=== PATIENT | female | born 1930 | race Caucasian/White ===

== ENCOUNTER 2016-11-11 11:44 | Observation (INO) | payer MEDICARE ==
[~2016-11-11] VITALS: Ht 165.1 cm; Wt 58.0 kg
[~2016-11-11 11:44] MED LIST: ASPI325T PO; DIGO0.12 PO; DILT120C9 PO; FURO20 PO; LEVO.1 PO; PRIL20CA PO; SUCR1S PO; TYLE3 PO; XANA0.5T PO
[2016-11-11 11:51] VITALS: BP 111/63; PULSE 79; RESP 24; TEMP 98.1; O2SAT 98
[2016-11-11 11:58] VITALS: RESP 24; O2SAT 97
[2016-11-11] MEDS ORDERED: SODIUM CHLORIDE 0.9% FLUSH 10 ML FLUSH IVF PRN (12:00)
[2016-11-11] MEDS ORDERED: methylPREDNISolone SOD SUCC 125 MG/2 ML VIAL IVP ONE (12:00)
[2016-11-11 12:09] LABS: BASOPHIL % 0.2 % (0.0-2.0); EOSINOPHIL # 0.1 TH/MM3 (0-0.4); EOSINOPHIL % 0.8 % (0.0-4.0); HEMATOCRIT 34.9 % (35.0-46.0); HEMO FLAGS DIFF FINAL; LYMPH % 15.6 % (9.0-44.0); LYMPHOCYTE # 1.2 TH/MM3 (1.0-4.8); MEAN CELL VOLUME 75.4 FL (80.0-100.0); MEAN CORPUSCULAR HEMOGLOBIN 25.1 PG (27.0-34.0); MEAN CORPUSCULAR HGB CONC 33.3 % (32.0-36.0); MONO % 3.9 % (0.0-8.0); NEUT % 79.5 % (16.0-70.0); PLATELET COUNT 212 TH/MM3 (150-450); RED BLOOD COUNT 4.63 MIL/MM3 (4.00-5.30); RED CELL DISTRIBUTION WIDTH 16.4 % (11.6-17.2); WHITE BLOOD COUNT 7.6 TH/MM3 (4.0-11.0)
--- NOTE | 2016-11-11 12:14 | PD ---
HPI Chief Complaint: Respiratory Symptoms Time Seen by Provider: 12:10 Travel History International Travel<30 days: No Contact w/Intl Traveler<30days: No Traveled to known affect area: No History of Present Illness HPI Patient comes in by EMS complaining of shortness of breath began shortly prior to arrival. Patient denies any pain with this. Denies patient being on any inhalers regularly but does report a history of COPD. Patient's daughter reports she is uncertain if this was COPD or her mother's anxiety. Patient's daughter reports that she applied oxygen the patient will no relief and called EMS. Denies any nausea, vomiting, chest pain, headache, numbness or tingling, back pain, fevers, or loss or change of bowel or bladder. Patient reports symptoms improved after receiving nebulizer treatments from EMS en route. She denies any symptoms currently. PFSH Past Medical History Arthritis: Yes (RHEUMATOID) Asthma: No Atrial Fibrillation: Yes Autoimmune Disease: Yes Blood Disorders: No Anxiety: Yes Depression: Yes Heart Rhythm Problems: Yes (ATRIAL FIB) Cancer: No Cardiovascular Problems: Yes High Cholesterol: No Chemotherapy: No Chest Pain: Yes Congestive Heart Failure: Yes COPD: No Cerebrovascular Accident: No Diabetes: No Diminished Hearing: No Endocrine: Yes Gastrointestinal Disorders: Yes GERD: Yes Glaucoma: Yes (BILATERAL) Genitourinary: No Headaches: No Hepatitis: No Hiatal Hernia: No Hypertension: Yes Immune Disorder: Yes Implanted Vascular Access Dvce: Yes Kidney Stones: No Musculoskeletal: Yes (RHEUMATOID ARTHRITIS) Neurologic: No Psychiatric: No Reproductive: No Respiratory: Yes (COPD) Immunizations Current: Yes Migraines: No Myocardial Infarction: No Radiation Therapy: No Renal Failure: No Seizures: No Sickle Cell Disease: No Sleep Apnea: No Thyroid Disease: Yes Ulcer: No PNEUMOCCOCAL Vaccine (Year): 1 ?: Not Menopausal: Yes Past Surgical History Abdominal Surgery: No AICD: Yes Appendectomy: Yes Arteriovenous Shunt: No Body Medical Devices: pacer Cardiac Surgery: Yes (PACEMAKER, ) Cholecystectomy: Yes Ear Surgery: No Endocrine Surgery: No Eye Surgery: Yes (UNK) Genitourinary Surgery: No Gynecologic Surgery: Yes (HYSTERECTOMY) Hysterectomy: Yes Insulin Pump: No Joint Replacement: Yes (SEVERAL) Neurologic Surgery: Yes Oral Surgery: Yes (REMOVAL OF TEETH) Pacemaker: Yes (2009) Thoracic Surgery: No Other Surgery: Yes (toe surgery bilat feet) Social History Alcohol Use: Yes (WINE/OCC) Tobacco Use: No Substance Use: No Allergies-Medications (Allergen,Severity, Reaction): Coded Allergies: Keflex (Verified Allergy, Severe, HIVES, 11/11/16) Nonsteroidal Anti-Inflammatory Agts (Verified Allergy, Severe, Itching, 11/11/16) Uncoded Allergies: ANTIINFLAMATORY (Allergy, Severe, ITCHING, 09/16/14) Reported Meds & Prescriptions Reported Meds & Active Scripts Active Reported Aspir-81 (Aspirin) 81 Mg Tabdr 81 Mg PO DAILY Prilosec (Omeprazole) 20 Mg Cap 20 Mg PO DAILY K-Tab (Potassium Chloride) 10 Meq Tab 10 Meq PO DAILY Furosemide 20 Mg Tab 20 Mg PO DAILY Tylenol-Codeine #3 (Acetaminophen-Codeine) 300-30 mg Tab 1 Tab PO Q4H PRN Cartia Xt (Diltiazem ER 24 HR) 120 Mg Caper 120 Mg PO DAILY Prednisone 5 Mg Tab 5 Mg PO DAILY Levothyroxine (Levothyroxine Sodium) 100 Mcg Tab 100 Mcg PO DAILY Digoxin 0.125 Mg Tab 0.125 Mg PO DAILY Alprazolam 0.5 Mg Tab 0.25 Mg PO TID PRN Review of Systems Except as stated in HPI: all other systems reviewed are Neg Physical Exam Narrative GENERAL: Well-developed, well nourished, in no acute distress, and non-ill appearing. SKIN: Focused skin assessment warm and dry. HEAD: Atraumatic. Normocephalic. EYES: Pupils equal and round. EOMI. No scleral icterus. No injection or drainage. ENT: No nasal bleeding or discharge. Mucous membranes pink and moist. NECK: Trachea midline. No JVD. Supple. No nuclear rigidity. CARDIOVASCULAR: Regular rate and rhythm. No murmur appreciated. RESPIRATORY: No accessory muscle use. No respiratory distress. Clear to auscultation. Breath sounds equal bilaterally. MUSCULOSKELETAL: No obvious deformities. No clubbing. No cyanosis. No edema. Full range of motion. NEUROLOGICAL: Awake and alert. No obvious cranial nerve deficits. Motor grossly within normal limits. Normal speech. PSYCHIATRIC: Appropriate mood and affect; insight and judgment normal. Data Data Last Documented VS Vital Signs Date Time Temp Pulse Resp B/P Pulse Ox O2 Delivery O2 Flow Rate FiO2 11/11/16 11:58 24 97 Room Air 11/11/16 11:57 5/3/17 11:51 98.1 79 111/63 Orders Complete Blood Count With Diff (11/11/16 11:54) Basic Metabolic Panel (Bmp) (11/11/16 11:54) B-Type Natriuretic Peptide (11/11/16 11:54) Magnesium (Mg) (11/11/16 11:54) Iv Access Insert/Monitor (11/11/16 11:54) Electrocardiogram (11/11/16 11:54) Ecg Monitoring (11/11/16 11:54) Oximetry (11/11/16 11:54) Oxygen Administration (11/11/16 11:54) Chest, Single Ap (11/11/16 11:54) Sodium Chloride 0.9% Flush (Ns Flush) (11/11/16 12:00) Methylprednisolone So Succ Inj (Solumedr (11/11/16 12:00) Admit Order (Ed Use Only) (11/11/16 14:25) Labs Laboratory Tests Test 11/11/16 12:00 White Blood Count 7.6 TH/MM3 Red Blood Count 4.63 MIL/MM3 Hemoglobin 11.6 GM/DL Hematocrit 34.9 % Mean Corpuscular Volume 75.4 FL Mean Corpuscular Hemoglobin 25.1 PG Mean Corpuscular Hemoglobin 33.3 % Concent Red Cell Distribution Width 16.4 % Platelet Count 212 TH/MM3 Mean Platelet Volume 6.9 FL Neutrophils (%) (Auto) 79.5 % Lymphocytes (%) (Auto) 15.6 % Monocytes (%) (Auto) 3.9 % Eosinophils (%) (Auto) 0.8 % Basophils (%) (Auto) 0.2 % Neutrophils # (Auto) 6.0 TH/MM3 Lymphocytes # (Auto) 1.2 TH/MM3 Monocytes # (Auto) 0.3 TH/MM3 Eosinophils # (Auto) 0.1 TH/MM3 Basophils # (Auto) 0.0 TH/MM3 CBC Comment DIFF FINAL Differential Comment Sodium Level 134 MEQ/L Potassium Level 3.8 MEQ/L Chloride Level 96 MEQ/L Carbon Dioxide Level 32.8 MEQ/L Anion Gap 5 MEQ/L Blood Urea Nitrogen 21 MG/DL Creatinine 0.86 MG/DL Estimat Glomerular Filtration 63 ML/MIN Rate Random Glucose 117 MG/DL Calcium Level 8.6 MG/DL Magnesium Level 2.1 MG/DL B-Type Natriuretic Peptide 43 PG/ML MDM Medical Decision Making Medical Screen Exam Complete: Yes Emergency Medical Condition: Yes Interpretation(s) EKG reviewed by Dr. Schuster shows normal sinus rhythm with ventricular rate 76. No STEMI. Differential Diagnosis COPD exacerbation, pneumonia, electrolyte abnormality, CHF exacerbation, other Narrative Course Patient's exam. Initial laboratory and radiological studies were obtained and reviewed. Discussed patient with Dr. Schuster who recommends having patient placed in observation for COPD exacerbation. Discussed all findings and plan care of patient, who is agreeable for admission. All questions were answered. Patient remained stable throughout emergency department course. Physician Communication Physician Communication [phone] Alvarez, who is agreeable to admit the patient. Diagnosis Primary Impression: COPD exacerbation Admitting Information Admitting Physician Requests: Observation Condition: Stable Bassam Juares November 11, 2016 12:14
[2016-11-11] MEDS ORDERED: ALPR0.5T3 PO (12:17)
[2016-11-11] MEDS ORDERED: LEVO100T5 PO (12:17)
[2016-11-11] MEDS ORDERED: DIGO0.12 PO (12:17)
[2016-11-11] MEDS ORDERED: TYLETAB34 PO (12:17)
[2016-11-11] MEDS ORDERED: PRED5TAB PO (12:17)
[2016-11-11] MEDS ORDERED: ASPI81TA81 PO (12:17)
[2016-11-11] MEDS ORDERED: PRIL20CA9 PO (12:17)
[2016-11-11] MEDS ORDERED: CART120C PO (12:17)
[2016-11-11] MEDS ORDERED: K-TA10TA PO (12:17)
[2016-11-11] MEDS ORDERED: FURO20TA PO (12:17)
[2016-11-11 12:26] LABS: BICARBONATE 32.8 MEQ/L (21.0-32.0); MAGNESIUM 2.1 MG/DL (1.5-2.5); POTASSIUM 3.8 MEQ/L (3.5-5.1)
[2016-11-11 13:00] VITALS: BP 113/69; PULSE 74; RESP 16; O2SAT 97
--- NOTE | 2016-11-11 13:36 | RADRPT ---
EXAM DATE/TIME: 11/11/2016 12:57 [facility] COMPARISON: CHEST SINGLE AP, May 28, 2015, 16:47. INDICATIONS : Short of breath for a few days. MEDICAL HISTORY : None. SURGICAL HISTORY : Pacemaker. ENCOUNTER: Initial ACUITY: 2 days PAIN SCORE: 0/10 LOCATION: Bilateral chest FINDINGS: The heart is normal in size. There are chronic interstitial changes within the pulmonary parenchyma. There is a transvenous pacer in good position. The bony structures demonstrate degenerative changes i n the right shoulder but are otherwise intact. The exam is relatively unchanged compared to previous date 05/28/15. CONCLUSION: 1. Chronic interstitial changes are stable compared to previous exam. Alessandro Bailey MD on November 11, 2016 at 13:32 Board Certified Radiologist. This report was verified electronically.
[2016-11-11 15:00] VITALS: BP 112/64; PULSE 66; RESP 18; O2SAT 97; O2SAT 98
[2016-11-11 17:00] VITALS: BP 114/70; PULSE 72; RESP 18; O2SAT 98
[2016-11-11] MEDS ORDERED: RESP: ALBUTEROL 2.5 MG/IPRATROPIUM 0.5 MG NEB (PRN) NEB ×2 (17:00→18:00)
[2016-11-11] MEDS ORDERED: ACETAMINOPHEN/CODEINE 300 MG/30 MG TAB PO PRN (17:00)
[2016-11-11] MEDS ORDERED: ACETAMINOPHEN 325 MG TAB PO PRN (17:00)
[2016-11-11] MEDS ORDERED: ONDANSETRON HCL 4 MG/2 ML VIAL IV PRN (17:00)
[2016-11-11] MEDS ORDERED: ALPRAZolam 0.25 MG TAB PO PRN (17:15)
--- NOTE | 2016-11-11 18:00 | HHI.HP ---
HPI Service [facility] Hospitalists Primary Care Physician Rick Zarate MD Admission Diagnosis COPD exacerbation Chief Complaint: SOB Travel History International Travel<30 Days: No Contact w/Intl Traveler <30 Da: No Traveled to Known Affected Are: No History of Present Illness Ms. Kay is a pleasant 86 y/o WF with RA, hx of atrial fibrillation and SSS s /p PPM, hypothyroidism, COPD, and Sjogren's syndrome. She presented to the ED with reported SOB which came on suddenly this morning. Her daughter who is at the bedside and lives with the pt reports that the pt was fine this morning when she woke up and ate breakfast and after that was getting dressed and was calling for her daughter down the shaikh to make sure she was in the house. And when the daughter went to check on her the pt was acutely SOB. The daughter wasn 't terribly concerned as she reports that the pt does this periodically when she has panic attacks but typically they can do breathing exercises which calm the pt down but apparently this episode the pt wasn't able to be calmed down and requested to go to the hospital. Patient's daughter reports that she applied oxygen the patient with no relief and called EMS. The pt received nebulizer treatments en route to the hospital and upon arrival and has been saturating well on RA. The pt and family denies any cough, congestion, nausea, vomiting, chest pain, headache, numbness or tingling, back pain, fevers, or chills. She denies any symptoms currently. Review of Systems Constitutional: DENIES: Fever, Chills Respiratory: COMPLAINS OF: Shortness of breath, DENIES: Cough, Sputum production Cardiovascular: DENIES: Chest pain, Palpitations, Lower Extremity Edema Gastrointestinal: DENIES: Abdominal pain, Black stools, Bloody stools, Constipation, Diarrhea, Nausea, Vomiting Genitourinary: DENIES: Urinary frequency Musculoskeletal: DENIES: Back pain Integumentary: DENIES: Rash Neurologic: DENIES: Headache Psychiatric: DENIES: Confusion Past Family Social History Past Medical History COPD Hypothyroidism RA Sjogren's syndrome Atrial fibrillation SSS s/p PPM Anxiety GERD HTN 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 Past Surgical History PPM Appendectomy Cholecystectomy WAYLON with BSO Bilateral knee replacement Right hip arthroplasty [facility] in 2011 Reported Medications Aspir-81 (Aspirin) 81 Mg Tabdr 81 Mg PO DAILY Prilosec (Omeprazole) 20 Mg Cap 20 Mg PO DAILY K-Tab (Potassium Chloride) 10 Meq Tab 10 Meq PO DAILY Furosemide 20 Mg Tab 20 Mg PO DAILY Tylenol-Codeine #3 (Acetaminophen-Codeine) 300-30 mg Tab 1 Tab PO Q4H PRN Cartia Xt (Diltiazem ER 24 HR) 120 Mg Caper 120 Mg PO DAILY Prednisone 5 Mg Tab 5 Mg PO DAILY Levothyroxine (Levothyroxine Sodium) 100 Mcg Tab 100 Mcg PO DAILY Digoxin 0.125 Mg Tab 0.125 Mg PO DAILY Alprazolam 0.5 Mg Tab 0.25 Mg PO TID PRN Allergies: Coded Allergies: Keflex (Verified Allergy, Severe, HIVES, 11/11/16) Nonsteroidal Anti-Inflammatory Agts (Verified Allergy, Severe, Itching, 11/11/16) Uncoded Allergies: ANTIINFLAMATORY (Allergy, Severe, ITCHING, 09/16/14) Family History Noncontributory Social History Hx of tobacco use, family reports social tobacco use, none regularly and not for many years Denies any alcohol use Pt lives with her daughter who is her primary back winder 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 Physical Exam Vital Signs Vital Signs Date Time Temp Pulse Resp B/P Pulse Ox O2 Delivery O2 Flow Rate FiO2 11/11/16 11:58 24 97 Room Air 11/11/16 11:57 97 Room Air 11/11/16 11:51 98.1 79 24 111/63 98 Physical Exam GENERAL: This is a well-nourished, well-developed patient, in no apparent distress. HEENT: Atraumatic. Normocephalic. No temporal or scalp tenderness. No scleral icterus. Airway patent. NECK: Trachea midline, supple, nontender. CARDIO: Regular RESP: CTA bilaterally. No wheezes, rales, or rhonchi. ABD: +BS, soft, non-tender, nondistended. EXT: Extremities without clubbing, cyanosis, or edema. NEURO: Awake and alert. Motor and sensory grossly within normal limits. Normal speech. Laboratory Laboratory Tests Test 11/11/16 12:00 White Blood Count 7.6 Red Blood Count 4.63 Hemoglobin 11.6 Hematocrit 34.9 Mean Corpuscular Volume 75.4 Mean Corpuscular Hemoglobin 25.1 Mean Corpuscular Hemoglobin 33.3 Concent Red Cell Distribution Width 16.4 Platelet Count 212 Mean Platelet Volume 6.9 Neutrophils (%) (Auto) 79.5 Lymphocytes (%) (Auto) 15.6 Monocytes (%) (Auto) 3.9 Eosinophils (%) (Auto) 0.8 Basophils (%) (Auto) 0.2 Neutrophils # (Auto) 6.0 Lymphocytes # (Auto) 1.2 Monocytes # (Auto) 0.3 Eosinophils # (Auto) 0.1 Basophils # (Auto) 0.0 CBC Comment DIFF FINAL Differential Comment Sodium Level 134 Potassium Level 3.8 Chloride Level 96 Carbon Dioxide Level 32.8 Anion Gap 5 Blood Urea Nitrogen 21 Creatinine 0.86 Estimat Glomerular Filtration 63 Rate Random Glucose 117 Calcium Level 8.6 Magnesium Level 2.1 B-Type Natriuretic Peptide 43 Result Diagram: 11/11/16 1200 11/11/16 1200 Imaging Last Impressions Chest X-Ray 11/11/16 1154 Signed Impressions: Service Date/Time: Friday, November 11, 2016 12:57 - CONCLUSION: 1. Chronic interstitial changes are stable compared to previous exam. Alessandro Bailey MD Septic Shock Reassessment Heart: Regular rate and rhythm Lungs: Clear Skin: Warm Assessment and Plan Problem List: (1) Respiratory distress Status: Acute Plan: - Pt was admitted with acute onset of SOB/respiratory distress which has resolved. - Pts daughter feels that this was likely a panic attack as she has had similar issues in the past. - Pt felt that she had relief of her SOB with the nebulizer treatments. - CXR (11/11) --> Chronic interstitial changes are stable compared to previous exam. - Pt has a reported hx of COPD but is not wheezing, there has not been any reported URI symptoms, cough or congestion. Pt is saturating well on RA. - We will continue Duonebs PRN when she is admitted overnight for observation. - We will arrange for a nebulizer machine and Duonebs PRN as an outpt as well. - Pt was given a dose of IV Solu-Medrol in the ED but pt does not appear to be having respiratory symptoms at the time of our exam to justify continuing Solu- Medrol. - We will continue the pts oral Prednisone which she takes daily for her RA. - Monitor clinical status overnight - Anticipate discharge home in AM (2) Anxiety Status: Acute Plan: - Pt with hx of anxiety and panic attacks per the pts family. - Cont. home meds (3) Hypothyroidism Status: Chronic Plan: - Cont. home meds (4) Sjogren's disease Status: Chronic (5) Rheumatoid arthritis Status: Chronic (6) Chronic pain Status: Chronic Assessment and Plan Patient examined. Assessment and plan formulated with Ruchi Pierce PA-C. I agree with the above. presented by EMS for acute respiratory distress. family thought it was just anxiety/panic. did get some relief with nebs. ED felt most likely copd flare. currently pt seems back to baseline and w/out respiratory distress on my exam. no wheezing. long talk with family. observe overnight and d/c home tomorrow. will obtain a nebulizer at home given hx of copd. Ruchi Pierce November 11, 2016 18:00 Deepak Infante MD November 11, 2016 18:12
[2016-11-11] MEDS ORDERED: NEBULIZER/ADULT1 KIT (18:01)
[2016-11-11 20:34] VITALS: BP 112/54; PULSE 74; TEMP 98.8; O2SAT 96
[2016-11-12] MEDS ORDERED: LEVOTHYROXINE SODIUM 100 MCG TAB PO SCH (06:00)
[2016-11-12 07:40] VITALS: BP 113/59; PULSE 70; RESP 18; TEMP 98.4; O2SAT 97
[2016-11-12 07:45] VITALS: BP 95/52; PULSE 87; RESP 18; TEMP 98.4; O2SAT 97
[2016-11-12] MEDS ORDERED: PANTOPRAZOLE SOD 20 MG DELAYED RELEASE TAB PO SCH (09:00)
[2016-11-12] MEDS ORDERED: POTASSIUM CHLORIDE 10 MEQ CONTROLLED RELEASE TAB PO SCH (09:00)
[2016-11-12] MEDS ORDERED: DIGOXIN 0.125 MG TAB PO SCH (09:00)
[2016-11-12] MEDS ORDERED: ASPIRIN EC 81 MG TABEC PO SCH (09:00)
[2016-11-12] MEDS ORDERED: DILTIAZEM-CD 120 MG CAP ER PO SCH (09:00)
[2016-11-12] MEDS ORDERED: FUROSEMIDE 20 MG TAB PO SCH (09:00)
[2016-11-12] MEDS ORDERED: predniSONE 5 MG TAB PO SCH (09:00)
--- NOTE | 2016-11-12 09:35 | HHI.PR ---
Subjective Remarks No issues overnight. Pts daughter states that she slept well No SOB, no anxiety Pt and family are anxious to go home. Objective Vitals Vital Signs Date Time Temp Pulse Resp B/P Pulse Ox O2 Delivery O2 Flow Rate FiO2 11/12/16 07:40 98.4 70 18 113/59 97 11/11/16 20:34 98.8 74 112/54 96 11/11/16 17:00 72 18 114/70 98 Room Air 11/11/16 15:00 66 18 112/64 98 Room Air 11/11/16 13:00 74 16 113/69 97 Nasal Cannula 2 11/11/16 11:58 24 97 Room Air 11/11/16 11:57 97 Room Air 11/11/16 11:51 98.1 79 24 111/63 98 11/11/16 11/11/16 11/12/16 15:00 23:00 07:00 Intake Total 300 ml Balance 300 ml Intake Oral 300 ml Result Diagram: 11/11/16 1200 11/11/16 1200 Other Results Laboratory Tests Test 11/11/16 11/11/16 12:00 22:15 White Blood Count 7.6 TH/MM3 Red Blood Count 4.63 MIL/MM3 Hemoglobin 11.6 GM/DL Hematocrit 34.9 % Mean Corpuscular Volume 75.4 FL Mean Corpuscular Hemoglobin 25.1 PG Mean Corpuscular Hemoglobin 33.3 % Concent Red Cell Distribution Width 16.4 % Platelet Count 212 TH/MM3 Mean Platelet Volume 6.9 FL Neutrophils (%) (Auto) 79.5 % Lymphocytes (%) (Auto) 15.6 % Monocytes (%) (Auto) 3.9 % Eosinophils (%) (Auto) 0.8 % Basophils (%) (Auto) 0.2 % Neutrophils # (Auto) 6.0 TH/MM3 Lymphocytes # (Auto) 1.2 TH/MM3 Monocytes # (Auto) 0.3 TH/MM3 Eosinophils # (Auto) 0.1 TH/MM3 Basophils # (Auto) 0.0 TH/MM3 CBC Comment DIFF FINAL Differential Comment Sodium Level 134 MEQ/L Potassium Level 3.8 MEQ/L Chloride Level 96 MEQ/L Carbon Dioxide Level 32.8 MEQ/L Anion Gap 5 MEQ/L Blood Urea Nitrogen 21 MG/DL Creatinine 0.86 MG/DL Estimat Glomerular Filtration 63 ML/MIN Rate Random Glucose 117 MG/DL Calcium Level 8.6 MG/DL Magnesium Level 2.1 MG/DL B-Type Natriuretic Peptide 43 PG/ML Digoxin Level 1.5 NG/ML Imaging Last Impressions Chest X-Ray 11/11/16 1154 Signed Impressions: Service Date/Time: Friday, November 11, 2016 12:57 - CONCLUSION: 1. Chronic interstitial changes are stable compared to previous exam. Alessandro Bailey MD Objective Remarks General: NAD, AAOx3 Chest: CTA Cardiac: Regular Abd: +BS, soft ND/NT Ext: No edema A/P Problem List: (1) Respiratory distress Status: Acute Plan: - Pt was admitted with acute onset of SOB/respiratory distress which has resolved. - Pts daughter feels that this was likely a panic attack as she has had similar issues in the past. - Pt felt that she had relief of her SOB with the nebulizer treatments. - CXR (11/11) --> Chronic interstitial changes are stable compared to previous exam. - Pt has a reported hx of COPD but is not wheezing, there has not been any reported URI symptoms, cough or congestion. Pt is saturating well on RA. - Pt did well overnight, no issues with SOB or anxiety. - Pt was given a dose of IV Solu-Medrol in the ED but pt does not appear to be having respiratory symptoms at the time of our exam to justify continuing Solu- Medrol. - Pt was continued on oral Prednisone which she takes daily for her RA. - We will arrange for a nebulizer machine and Duonebs PRN as an outpt as well. - Anticipate discharge home today (2) Anxiety Status: Acute Plan: - Pt with hx of anxiety and panic attacks per the pts family. - Cont. home meds (3) Hypothyroidism Status: Chronic Plan: - Cont. home meds (4) Sjogren's disease Status: Chronic (5) Rheumatoid arthritis Status: Chronic (6) Chronic pain Status: Chronic Assessment and Plan Patient examined. Assessment and plan formulated with Ruchi Pierce PA-C. I agree with the above. stable. spoke with daughter. neb machine ordered. f/u pcp. Ruchi Pierce November 12, 2016 09:35 Deepak Infante MD November 12, 2016 14:28
[2016-11-12] MEDS ORDERED: IPRA0.02 NEB (09:36)
[2016-11-12] MEDS ORDERED: ALBU0.08 NEB (09:36)
--- NOTE | 2016-11-12 09:39 | HHI.DCPOC ---
Discharge Care Plan Diagnosis: (1) Atrial fibrillation (2) Sjogren's disease (3) Rheumatoid arthritis (4) Anxiety (5) Hypothyroidism (6) Chronic pain (7) COPD (chronic obstructive pulmonary disease) (8) Respiratory distress Goals to Promote Your Health * To prevent worsening of your condition and complications * To maintain your health at the optimal level Directions to Meet Your Goals Take your medications as prescribed Follow your dietary instruction Follow activity as directed Keep your appointments as scheduled Take your immunizations and boosters as scheduled If your symptoms worsen call your PCP, if no PCP go to Urgent Care Center or Emergency Room Smoking is Dangerous to Your Health. Avoid second hand smoke Call the 24-hour hour crisis hotline for domestic abuse at Ruchi Pierce November 12, 2016 09:39
[2016-11-12 11:37] VITALS: BP 107/59; PULSE 65; RESP 21; TEMP 98.4; O2SAT 97
--- NOTE | 2016-11-12 17:23 | EKG ---
Date Performed: 11/11/2016 Time Performed: 12:06:03 PTAGE: 86 years EKG: Sinus rhythm Nonspecific ST segment changes NORMAL ECG No change compared to prior study of 05/28/2015. PREVIOUS TRACING : 05/28/2015 15.48 DOCTOR: Calvin Fisher Interpretating Date/Time 11/12/2016 17:23:07
== END 2016-11-12 15:08 | disposition home or self-care (01) ==
LOC: NEPC 11:44 → NEDH 14:27 → NEPHCDU 19:11
PROVIDERS: ADMIT Hospitalist; ATTEND Hospitalist
DX: R06.00 Dyspnea, unspecified (principal); F41.0 Panic disorder [episodic paroxysmal anxiety]; E03.9 Hypothyroidism, unspecified; M35.00 Sjogren syndrome, unspecified; M06.9 Rheumatoid arthritis, unspecified; J44.9 Chronic obstructive pulmonary disease, unspecified; I48.91 Unspecified atrial fibrillation; I11.0 Hypertensive heart disease with heart failure; I50.9 Heart failure, unspecified; K21.9 Gastro-esophageal reflux disease without esophagitis; F32.9 Major depressive disorder, single episode, unspecified; M51.36 Other intervertebral disc degeneration, lumbar region; Z96.653 Presence of artificial knee joint, bilateral; Z96.641 Presence of right artificial hip joint; Z79.82 Long term (current) use of aspirin; Z95.0 Presence of cardiac pacemaker; Z79.52 Long term (current) use of systemic steroids; Z88.1 Allergy status to other antibiotic agents; Z88.8 Allergy status to other drugs, medicaments and biological substances; Z87.891 Personal history of nicotine dependence
CPT/HCPCS: 71010; 80048; 80162; 83735; 83880; 85025; 93005; 96374; 97162; 99285; G0378; G8987; G8988; J2930; J7512; 80375

== ENCOUNTER 2017-09-01 06:38 | Day surgery (SDC) | payer MEDICARE ==
[~2017-09-01] VITALS: Ht 157.5 cm; Wt 34.8 kg
[~2017-09-01 06:38] MED LIST changes: +ALBU0.08 NEB; +ALPR0.5T3 PO; -ASPI325T PO; +ASPI81TA81 PO; +CART120C PO; -DILT120C9 PO; -FURO20 PO; +FURO20TA PO; +IPRA0.02 NEB; +K-TA10TA PO; -LEVO.1 PO; +LEVO100T5 PO; +NEBULIZER/ADULT1 KIT; +PRED5TAB PO; -PRIL20CA PO; +PRIL20CA9 PO; -SUCR1S PO; -TYLE3 PO; +TYLETAB34 PO; -XANA0.5T PO
[2017-09-01] MEDS ORDERED: OMEP20TA93 PO (07:20)
[2017-09-01 07:23] VITALS: BP 125/80; PULSE 58; RESP 18; O2SAT 98
[2017-09-01] MEDS ORDERED: POVIDONE IODINE 5% (ANTISEPSIS KIT) 4 APPLICATIONS EACH NARE PRN (07:30)
[2017-09-01] MEDS ORDERED: METOPROLOL TARTRATE 25 MG TAB PO PRN (07:30)
[2017-09-01] MEDS ORDERED: LACTATED RINGER'S 1000 ML IV PRN (07:30)
[2017-09-01] MEDS ORDERED: CHLORHEXIDINE GLUCONATE 2 % 1 PACK (2 CLOTHS) TOPICAL SCH ×2 (07:30→08:00)
[2017-09-01] MEDS ORDERED: CHLORHEXIDINE GLUCONATE 2 % 1 PACK (2 CLOTHS) TOPICAL PRN (07:30)
[2017-09-01] MEDS ORDERED: SODIUM CHLORID 0.9% 500 ML IV PRN (07:30)
[2017-09-01] MEDS ORDERED: LORazepam 1 MG TAB SL SCH ×2 (07:30→08:00)
[2017-09-01] MEDS ORDERED: NS 1000 ML IV SCH ×2 (07:30→08:00)
[2017-09-01] MEDS ORDERED: NO Heparin, Lovenox, Coumadin at least 12 hours prior to procedure. PRN ×2 (07:30→08:00)
[2017-09-01] MEDS ORDERED: Hold AM Insulin & AM Hypoglycemic medications in diabetic patients PRN ×2 (07:30→08:00)
[2017-09-01] MEDS ORDERED: MUPIROCIN 2% OINT 1 APPLIC/GM SYR NASAL SCH ×2 (07:30→08:00)
[2017-09-01] MEDS ORDERED: POVIDONE IODINE 5% (ANTISEPSIS KIT) 4 APPLICATIONS EACH NARE SCH ×2 (07:30→08:00)
[2017-09-01 07:35] LABS: AUTOMATED NEUTROPHIL # 2.9 TH/MM3 (1.8-7.7); BASOPHIL % 0.4 % (0.0-2.0); EOSINOPHIL % 1.1 % (0.0-4.0); HEMATOCRIT 37.8 % (35.0-46.0); HEMOGLOBIN 12.9 GM/DL (11.6-15.3); INTERNATIONAL NORMALIZED RATIO 0.9 RATIO; LYMPH % 20.6 % (9.0-44.0); LYMPHOCYTE # 0.9 TH/MM3 (1.0-4.8); MEAN CELL VOLUME 79.7 FL (80.0-100.0); MEAN CORPUSCULAR HEMOGLOBIN 27.2 PG (27.0-34.0); MEAN CORPUSCULAR HGB CONC 34.2 % (32.0-36.0); MEAN PLATELET VOLUME 7.5 FL (7.0-11.0); MONO % 8.6 % (0.0-8.0); MONOCYTE # 0.4 TH/MM3 (0-0.9); NEUT % 69.3 % (16.0-70.0); PLATELET COUNT 183 TH/MM3 (150-450); PROTHROMBIN TIME - PATIENT 9.6 SEC (9.8-11.6); RED BLOOD COUNT 4.74 MIL/MM3 (4.00-5.30); RED CELL DISTRIBUTION WIDTH 15.7 % (11.6-17.2); WHITE BLOOD COUNT 4.2 TH/MM3 (4.0-11.0)
[2017-09-01] MEDS ORDERED: VANCOMYCIN HCL 1000 MG VIAL ONE (07:50)
[2017-09-01] MEDS ORDERED: VANCOMYCIN 500 MG VIAL ONE (07:50)
[2017-09-01] MEDS ORDERED: LEVOFLOXACIN 500 MG PREMIX INJ 100 ML IV ONE ×2 (07:51→08:45)
[2017-09-01] MEDS ORDERED: LIDOCAINE HCL 2% 50 ML VIAL ONE (07:51)
[2017-09-01] MEDS ORDERED: SODIUM CHLOR 0.9% 250 ML INJ 250 ML ONE (07:51)
[2017-09-01 07:52] LABS: BICARBONATE 36.8 MEQ/L (21.0-32.0); CALCIUM 8.7 MG/DL (8.5-10.1); CREATININE 0.77 MG/DL (0.50-1.00)
[2017-09-01] MEDS ORDERED: VANCOMYCIN 1000 MG/NS 250 ML IV SCH ×2 (08:00)
[2017-09-01] MEDS ORDERED: ONDANSETRON HCL 4 MG/2 ML VIAL IV PUSH PRN (08:30)
[2017-09-01] MEDS ORDERED: ACETAMINOPHEN/CODEINE 300 MG/30 MG TAB PO PRN ×2 (08:30)
[2017-09-01] MEDS ORDERED: SODIUM CHLORIDE 0.9% FLUSH 10 ML FLUSH IV FLUSH PRN (08:30)
--- NOTE | 2017-09-01 08:30 | PD.CARD ---
PPM GENERATOR REPLACEMENT PROCEDURE DATE: Sep 01, 2017 PPM GENERATOR REPLACEMENT PROC PROCEDURE PERFORMED Permanent pacemaker removal, permanent pacemaker replacement, pocket revision. Ms. Kay is a 86 -year-old female with history of symptomatic bradycardia, previous pacer , device currently end of life admits for generator replacement. The risks, the nature and the benefit of the procedure were clearly stated to her. The risks include pneumothorax, cardiac perforation, stroke and even . The patient understood and agreed to proceed. PROCEDURE After written informed consent was obtained, the patient was brought to the EP lab where was prepped and draped in the sterile fashion. Conscious sedation was initiated using intravenous Versed and introducer intravenous fentanyl. Once sedation was verified, the left infraclavicular area over the generator was anesthetized with 2% Xylocaine. Using a #11 scalpel, a 3 centimeter incision was made over the existing generator. Dissection was then taken down to deep fascial layer using Bovie cautery and blunt dissection. Once exposed, the generator was removed from the pocket. The pocket was expanded. Scar tissue was removed around the leads. Then, the leads were disconnected and tested. At that point, the pocket was copiously irrigated using antibiotic solution. The leads were connected to the new generator and placed into the pocket. The pacemaker was interrogated. She was A-sensing, V-pacing. I did proceed with wound closure. The deep fascial layer was approximated with 2-0 Vicryl suture in a continuous fashion. The subcutaneous layer was approximated with 2-0 Vicryl suture in a continuous fashion. Dermabond adhesive was applied to the wound followed by a sterile pressure dressing. There was no complication. The patient tolerated procedure. Blood loss minimal. EXPLANTED HARDWARE The explanted permanent pacemaker is a [employer]. Model # 229339 serial number [id number]. For information about the existing leads, please refer to previous dictation. IMPLANTED HARDWARE The implanted permanent pacemaker is a [employer] model number 916124, serial number [id number]. THRESHOLDS The right atrial pacing threshold in bipolar mode was 0.8 volt at 0.4 milliseconds. Lead impedance 352 ohms and P wave at 4.1 millivolts. The right ventricular pacing threshold in bipolar mode was 0.6 volts at 0.4 milliseconds. Lead impedance 524 ohms. R wave 9.4 mv. SETTINGS The device is set in a DDDR 60. Upper limit 120 beats per minute. Hysteresis and mode switch are on. CONCLUSIONS Successful permanent pacemaker removal, permanent pacemaker implantation, pocket revision. COMMENT AND RECOMMENDATIONS The patient will be transferred to the telemetry unit. He will be observed. The patient will be discharged home later on today. Cherry Wiggins MD Sep 01, 2017 08:30
[2017-09-01] MEDS ORDERED: NORC5TAB PO (08:34)
[2017-09-01] MEDS ORDERED: LEVA500T33 PO (08:34)
--- NOTE | 2017-09-01 08:55 | CATHPROC ---
[email or web address] HIS Report Study Information Study Number Admission Scheduled Start Study Start [id number] Sep 01 2017 6:38AM 09/01/2017 Sep 01 2017 7:59AM [place] [facility] Cardiac Pacer/ICD Admit Source Facility Department Other [facility] - Digital Content Manager Physician and Clinical Staff Initial Cherry Greene Buttermilk Drier Operator Candido Magallanes,RT(R) Recorder Abdirashid HOLLOWAY, Bobbi Mansfield,RT(R) TECH2 Equipment Time Jewelry Bearing Maker Description Size Mfg Part Number Used/Scraped 08:22 BIOTRONIK PACEMAKER, ETRINSA 8 PRAVEEN DDDDR [id number] Used DERMABOND, ADHESIVE SKIN [id number] 08:30 CORDIS/PACER * Used GLUE MINI *[id number] 08:30 MEDLINE IND[employer] SUTURE, STRIP PLUS 1/2" * Used *[id number] 08:30 MEDLINE PACER FOREMAN, LIMB * 2530 *[id number] Used [id number] 08:30 MEDLINE PACER PACK, PACER CUSTOM * Used *[id number] 08:27 Needle Sponge Count 1 1 Used 08:20 Needle Sponge Count 1 1 Used 08:20 Needle Sponge Count 1 111 Used 08:21 Needle Sponge Count 20 200 Used SUTURE, 0 ETHIBOND [CT1] ([id number]), 8pk SUTURE, 2-0 VICRYL [CT1] ([id number]) SUTURE, 2-0 VICRYL [CT1] ([id number]) SUTURE, 4-0 VICRYL [PS2] ([id number]) [id number] 08:30 [place] [employer],WARM AIR CCL * Used *[id number] [facility] PAD, ELECTROSURGICAL 08:30 * [id number] *[id number] Used SURGICAL GROUNDING ORANGE [id number] 08:30 [employer]. / * Used *[id number] Equipment Model, Serial, Lot Number and Expiration Data Description Model Number Serial Number Lot Number Expiration Da te PACEMAKER, ETRINSA 8 PRAVEEN [id number] 10-08-2018 History: Allergies Allergy Reaction cephalexin Nonsteroidal Anti-Inflammatory Agts Labs Hgb (g/dl) Hct (%) WBC (l/cumm) Platelets (thousands) 11.60-17.00 35.00-51.00 4.00-11.00 150.00-450.00 12.9 37.8 4.2 183 Glucose (mg/dl) BUN (mg/dl) Creatinine (mg/dl) BUN:Creatinine (1:x) 74.00-106.00 7.00-18.00 0.50-1.30 10.00-20.00 73 27 0.7 38.6 Na (meq/l) K (meq/l) 136.00-145.00 3.50-5.10 137 4.8 INR (PTT:PT) 0.90-1.10 0.9 Medication Medication Total Dose (Bolus/Oral) Medication Total Dosage/Unit 2% XYLOCAINE 50 mL Medications (Bolus/Oral) Medication Time Given Dosage/Unit Administered By Reason 2% XYLOCAINE 09/01/2017 8:17:51 AM 50 mL Cherry Wiggins 50 mL 2% XYLOCAINE given by Cherry Wiggins in Left shoulder via Subcutaneous. Medication (Drip) Medication Time Given Dosage/Unit Concentration/Unit Diluent (ml) Solution LEVAQUIN 09/01/2017 7:55:46 AM 100 mL/hr 500 100 NaCl .9 100 mL/hr LEVAQUIN given by TEJAL. Pump/Drip Flow = 0 ml/hr using NaCl .9 with a concentration of 500 in 100 ml VANCOMYCIN DRIP 09/01/2017 8:00:10 AM 1 g 1 g VANCOMYCIN DRIP given byvia Peripheral IV. Given by TEJAL Chronological Log Time Study Chronological Log 7:40:29 Patient arrived via Bed. 7:40:41 Patient Name, D.O.B, / Armband Verified By R.N. 7:40:50 2% CHLORHEXIDINE GLUCONATE WASH AND NASAL SWIPE DONE PRIOR TO PROCEDURE. 7:41:23 Anesthesia at bedside. Assumes care of patient. 7:41:53 Pre-op and post- op instructions given; patient acknowledges understanding of instructions. 7:43:34 Diana Prominences Protected 7:44:21 History and physical on the chart or being dictated. 7:45:50 Patient Warmer Placed on the Table. 7:50:56 Table restraints applied according to hospital policy 7:52:22 Disposable Defibrillator Pads Placed On Patient. 7:55:46 100 mL/hr LEVAQUIN given by VENDING TECHNICIAN. Pump/Drip Flow = 0 ml/hr using NaCl .9 with a concentratio n of 500 in 100 ml 8:00:10 1 g VANCOMYCIN DRIP given byvia Peripheral IV. Given by VENDING TECHNICIAN 8:02:12 Left Upper Chest Prepped Times Two. 8:02:33 A # 20 IV was noted in the Antecubital (left). Grade = 0 8:04:41 Patient has been NPO for More than 6Hrs. Skin Breakdown- multiple scabs noted bilateral upper arms and chest. Dr Wiggins was informed by Landon Watts about the 8:04:44 skin breakdown PRIOR to arrival to pacemaker lab First Sponge And Instrument Count Done by Cherry Wiggins. 8:05:54 Hypo's: 1, Sponges: 20, Bovie/scratch: 1 Sutures: 3, Blades: 1, Instruments: 26, Syveck Patches: ~SYVECK PATCH~ 8:07:23 MD notified patient is ready 8:08:06 Plasma ground pad applied to: Left thigh 8:14:19 Consent signed by the physician and the patient and patient family member and verified by [facility] Digital Content Manager staff. 8:14:30 MD arrived. Time Out. Correct patient, procedure, procedure equipment, site and side verified with physician present. Time 8:16:58 concurred by MD, individual staff and VENDING TECHNICIAN. 8:17:01 Case Start 8:17:51 50 mL 2% XYLOCAINE given by Cherry Wiggins in Left shoulder via Subcutaneous. 8:18:09 Surgical Incision Made. 8:19:04 A pocket was created at the Lt. upper chest. 8:19:37 A device was explanted. 8:21:06 Pocket flushed with antibiotic solution 8:21:10 A PACEMAKER, ETRINSA 8 DR-T DDDDR was connected and placed in the pocket. Second Sponge And Instrument Count Done by Cherry Wiggins. 8:22:20 Hypo's: 1, Sponges: 20, Bovie/scratch: 1 Sutures: ~SUTURE~, Blades: 1, Instruments: 26, Syveck Patches: ~SYVECK PATCH~ 8:25:25 A PPM Implant . (Dual) Generator change 8:26:21 Implant Procedure was performed. 8:37:20 The pocket was closed. 8:37:46 Case End 8:38:11 No case complications noted. The Final Sponge And Instrument Count Done by Cherry Wiggins. 8:38:54 Hypo's: 1, Sponges: 20, Bovie/scratch: 1 Sutures: 3, Blades: 1, Instruments: 26, Syveck Patches: ~SYVECK PATCH~ 8:40:36 Holding Area notified 8:40:51 Steri-strips and a sterile dressing applied to site. 8:41:00 Bedside Report will be given. 8:45:05 Implantable Device card placed in patient's chart. 8:55:42 [facility] Study - Contrast Media Used In Study Contrast Total Opened (mL) Total Used (mL) Total Wasted (mL) Unspecified 0 0 0 End Study - Maximum Contrast Load Max Contrast Load (mL) 246.8 End Study - Radiation Exposure Fluoro Time (minutes) 0.1 End Study - Patient Disposition Complications Transferred To Telemetry Bed
[2017-09-01] MEDS ORDERED: SODIUM CHLORIDE 0.9% FLUSH 10 ML FLUSH IV FLUSH SCH (09:00)
== END 2017-09-01 10:40 | disposition home or self-care (01) ==
LOC: HDOC 06:38 → HDIC 06:38 → HDOC 10:40
PROVIDERS: ATTEND Internal Medicine Interventional Cardiology
DX: Z45.010 Encounter for checking and testing of cardiac pacemaker pulse generator [battery] (principal); I48.92 Unspecified atrial flutter; I49.5 Sick sinus syndrome; D64.9 Anemia, unspecified; K21.9 Gastro-esophageal reflux disease without esophagitis; R06.00 Dyspnea, unspecified; R53.83 Other fatigue; R06.02 Shortness of breath
CPT/HCPCS: 00400; 33228; 80048; 85025; 85610; 85730; 86850; 86900; 86901; C1785; J1956; J3010; J3370; J7050

== ENCOUNTER 2017-10-27 10:16 | Inpatient (IN) | payer MEDICARE ==
[~2017-10-27] VITALS: Ht 152.4 cm; Wt 52.1 kg
[2017-10-27] VITALS (14 sets, daily range): BP systolic 73–110; BP diastolic 44–61; PULSE 60–98; RESP 19–33; TEMP 98.4–104.2; O2SAT 96–100
[~2017-10-27 10:16] MED LIST changes: +LEVA500T33 PO; +NORC5TAB PO; +OMEP20TA93 PO; -PRIL20CA9 PO
[2017-10-27] MEDS ORDERED: PIPERACIL-TAZO 4.5 GM PREMIX 100 ML IV STA (10:31)
[2017-10-27] MEDS ORDERED: VANCOMYCIN INJ 1,000 MG in SODIUM CHLOR 0.9% 250 ML INJ 250 ML IV STA (10:31)
[2017-10-27] MEDS ORDERED: PRIL20TA2 PO (10:41)
[2017-10-27] MEDS ORDERED: SODIUM CHLOR 0.9% 1000 ML INJ 1,000 ML IV ONE ×2 (10:45→13:45)
[2017-10-27] MEDS ORDERED: ACETAMINOPHEN 1000 MG/100 ML 100 ML IV ONE (10:45)
[2017-10-27 10:58] LABS: AUTOMATED NEUTROPHIL # 10.6 TH/MM3 (1.8-7.7); BASOPHIL % 0.2 % (0.0-2.0); EOSINOPHIL % 0.1 % (0.0-4.0); HEMATOCRIT 35.6 % (35.0-46.0); HEMOGLOBIN 11.6 GM/DL (11.6-15.3); LYMPH % 3.9 % (9.0-44.0); LYMPHOCYTE # 0.5 TH/MM3 (1.0-4.8); MEAN CELL VOLUME 78.9 FL (80.0-100.0); MEAN CORPUSCULAR HEMOGLOBIN 25.8 PG (27.0-34.0); MEAN CORPUSCULAR HGB CONC 32.7 % (32.0-36.0); MEAN PLATELET VOLUME 6.9 FL (7.0-11.0); MONO % 5.8 % (0.0-8.0); MONOCYTE # 0.7 TH/MM3 (0-0.9); PLATELET COUNT 200 TH/MM3 (150-450); RED CELL DISTRIBUTION WIDTH 15.9 % (11.6-17.2); WHITE BLOOD COUNT 11.8 TH/MM3 (4.0-11.0)
[2017-10-27 11:02] LABS: AMORPHOUS SEDIMENT, URINE RARE; BACTERIA, URINE RARE /hpf; BLOOD, URINE NEG (NEG); GLUCOSE,URINE NEG (NEG); HYALINE CAST, URINE 2 /lpf (RARE); KETONE, URINE NEG (NEG); MUCUS URINE FEW /lpf (OCC); NITRITE,URINE NEG (NEG); PH, URINE 5.5 (5.0-8.5); SQUAMOUS EPITHELIAL CELL URINE 2 /hpf (0-5); URINE COLOR YELLOW (YELLW/STRAW); URINE LEUKOCYTE ESTERASE NEG (NEG)
[2017-10-27 11:05] LABS: BILIRUBIN, URINE NEG (NEG)
--- NOTE | 2017-10-27 11:12 | RADRPT ---
EXAM DATE/TIME: 10/27/2017 10:43 [place] COMPARISON: CHEST SINGLE AP, November 11, 2016, 12:57. INDICATIONS : Fever. MEDICAL HISTORY : None. SURGICAL HISTORY : Pacemaker. ENCOUNTER: Initial ACUITY: 1 day PAIN SCORE: 0/10 LOCATION: Bilateral chest FINDINGS: Pacer on left. Lungs are clear. Heart and pulmonary vascularity is normal. There is no consolidati on or pleural effusion. Degenerative changes about both shoulders. CONCLUSION: Negative for infiltrate or failure. Jose Manuel Bailey MD FACR on October 27, 2017 at 11:09 Board Certified Radiologist. This report was verified electronically.
--- NOTE | 2017-10-27 11:46 | PD ---
HPI Chief Complaint: Fever Time Seen by Provider: 10:31 Travel History International Travel<30 days: No Contact w/Intl Traveler<30days: No Traveled to known affect area: No History of Present Illness HPI Is an 87-year-old woman presents to the emergency department for fever and confusion. She had her pacemaker replaced on September [address] Wiggins. They have noticed some redness in the area more recently. Fever today. Confusion today. Patient unable to provide any additional history. She has a little bit of baseline confusion but this is been significantly worse. She is on prednisone daily for Sjogren's and rheumatoid arthritis. History Past Medical History Narrative Medical Rheumatoid arthritis Sick sinus syndrome status post pacemaker, A. fib Hypothyroidism COPD Sjogren's syndrome Anxiety GERD Hypertension Degenerative disc disease Tetanus Vaccination: Unknown PNEUMOCCOCAL Vaccine (Year): 1 Menopausal: Yes Social History Alcohol Use: Yes (WINE/OCC) Tobacco Use: No Allergies-Medications (Allergen,Severity, Reaction): Coded Allergies: NSAIDS (Non-Steroidal Anti-Inflamma (Verified Allergy, Severe, Shortness of Breath, 10/27/17) cephalexin (Unverified Allergy, Severe, HIVES, 10/27/17) diclofenac (Unverified Allergy, Severe, Itching, 10/27/17) etodolac (Unverified Allergy, Severe, Itching, 10/27/17) flurbiprofen (Unverified Allergy, Severe, Itching, 10/27/17) ibuprofen (Unverified Allergy, Severe, Itching, 10/27/17) indomethacin (Unverified Allergy, Severe, Itching, 10/27/17) ketoprofen (Unverified Allergy, Severe, Itching, 10/27/17) ketorolac (Unverified Allergy, Severe, Itching, 10/27/17) naproxen (Unverified Allergy, Severe, Itching, 10/27/17) oxaprozin (Unverified Allergy, Severe, Itching, 10/27/17) Uncoded Allergies: ANTIINFLAMATORY (Allergy, Severe, ITCHING, 09/16/14) Reported Meds & Prescriptions Reported Meds & Active Scripts Active Reported Prilosec (Omeprazole Magnesium) 20 Mg Tab 20 Mg PO DAILY Aspir-81 (Aspirin) 81 Mg Tabdr 81 Mg PO DAILY K-Tab (Potassium Chloride) 10 Meq Tab 10 Meq PO DAILY Furosemide 20 Mg Tab 20 Mg PO DAILY Tylenol-Codeine #3 (Acetaminophen-Codeine) 300-30 mg Tab 1 Tab PO Q4H PRN Cartia Xt (Diltiazem ER 24 HR) 120 Mg Caper 120 Mg PO DAILY Prednisone 5 Mg Tab 5 Mg PO DAILY Levothyroxine (Levothyroxine Sodium) 100 Mcg Tab 100 Mcg PO DAILY Digoxin 0.125 Mg Tab 0.125 Mg PO DAILY Alprazolam 0.5 Mg Tab 0.25 Mg PO TID PRN Review of Systems Except as stated in HPI: all other systems reviewed are Neg Physical Exam Narrative GENERAL: An 87-year-old woman, listless and confused SKIN: Focused skin assessment warm/dry. HEAD: Atraumatic. Normocephalic. EYES: Pupils equal and round. No scleral icterus. No injection or drainage. ENT: No nasal bleeding or discharge. Mucous membranes pink and moist. NECK: Trachea midline. No JVD. CHEST: Pacemaker site is a minimal amount of blanching erythema extending for several centimeters in all areas. There is purulent drainage coming from the pocket itself. CARDIOVASCULAR: Regular rate and rhythm. No murmur appreciated. RESPIRATORY: No accessory muscle use. Clear to auscultation. Breath sounds equal bilaterally. GASTROINTESTINAL: Abdomen soft, non-tender, nondistended. Hepatic and splenic margins not palpable. MUSCULOSKELETAL: No obvious deformities. Decreased muscle bulk. NEUROLOGICAL: Awake and alert but with britany confusion. Moves all extremities. PSYCHIATRIC: Confused and agitated. Data Data Last Documented VS Vital Signs Date Time Temp Pulse Resp B/P (MAP) Pulse Ox O2 Delivery O2 Flow Rate FiO2 10/27/17 11:36 87 21 91/46 (61) 100 Room Air 10/27/17 10:28 104.2 Orders Orders Sepsis Workup Initiated (10/27/17 ) Complete Blood Count With Diff (10/27/17 10:31) Comprehensive Metabolic Panel (10/27/17 10:31) Prothrombin Time / Inr (Pt) (10/27/17 10:31) Act Partial Throm Time (Ptt) (10/27/17 10:31) Lactic Acid Sepsis Protocol (10/27/17 10:31) Urinalysis - C+S If Indicated (10/27/17 10:31) Blood Culture (10/27/17 10:31) Wound Culture And Gram Stain (10/27/17 10:31) Chest, Single Ap (10/27/17 10:31) Blood Glucose (10/27/17 10:31) Ecg Monitoring (10/27/17 10:31) Iv Access Insert/Monitor (10/27/17 10:31) Oximetry (10/27/17 10:31) Oxygen Administration (10/27/17 10:31) Piperacil-Tazo 4.5 Gm Premix (Zosyn 4.5 (10/27/17 10:31) Vancomycin Inj (Vancomycin Inj) (10/27/17 10:31) Sodium Chlor 0.9% 1000 Ml Inj (Ns 1000 M (10/27/17 10:45) Acetaminophen 1000 Mg/100 Ml (Ofirmev 10 (10/27/17 10:45) Urine Culture (10/27/17 10:45) Labs Laboratory Tests Test 10/27/17 10:40 10/27/17 10:45 Lactic Acid Level 1.7 mmol/L White Blood Count 11.8 TH/MM3 Red Blood Count 4.50 MIL/MM3 Hemoglobin 11.6 GM/DL Hematocrit 35.6 % Mean Corpuscular Volume 78.9 FL Mean Corpuscular Hemoglobin 25.8 PG Mean Corpuscular Hemoglobin Concent 32.7 % Red Cell Distribution Width 15.9 % Platelet Count 200 TH/MM3 Mean Platelet Volume 6.9 FL Neutrophils (%) (Auto) 90.0 % Lymphocytes (%) (Auto) 3.9 % Monocytes (%) (Auto) 5.8 % Eosinophils (%) (Auto) 0.1 % Basophils (%) (Auto) 0.2 % Neutrophils # (Auto) 10.6 TH/MM3 Lymphocytes # (Auto) 0.5 TH/MM3 Monocytes # (Auto) 0.7 TH/MM3 Eosinophils # (Auto) 0.0 TH/MM3 Basophils # (Auto) 0.0 TH/MM3 CBC Comment DIFF FINAL Differential Comment Urine Color YELLOW Urine Turbidity HAZY Urine pH 5.5 Urine Specific [place] 1.015 Urine Protein 30 mg/dL Urine Glucose (UA) NEG mg/dL Urine Ketones NEG mg/dL Urine Occult Blood NEG Urine Nitrite NEG Urine Bilirubin NEG Urine Urobilinogen 8.0 MG/DL Urine Leukocyte Esterase NEG Urine RBC 1 /hpf Urine WBC LESS THAN 1 /hpf Urine Squamous Epithelial Cells 2 /hpf Urine Amorphous Sediment RARE Urine Bacteria RARE /hpf Urine Hyaline Casts 2 /lpf Urine Mucus FEW /lpf Microscopic Urinalysis Comment CATH-CULTURE IND MDM Medical Decision Making Medical Screen Exam Complete: Yes Emergency Medical Condition: Yes Interpretation(s) LABS: CBC remarkable for mild leukocytosis. CMP pending Lactate 1.7 Coags pending UA unremarkable Chest x-ray negative. Differential Diagnosis Sepsis, pacer site infection, pneumonia, UTI, shock, other Narrative Course Medical decision making 87-year-old woman presents with sepsis. She has pacer site infection at the likely source. Wound culture was obtained. She was given antibiotics. She is on a diuretic normally. Was given a small dose, 1 L fluid. Will reassess. I spoke with Dr. Infante, will admit patient to [facility] to [facility]. Diagnosis Primary Impression: Sepsis Additional Impression: Pacemaker infection Admitting Information Admitting Physician Requests: Admit Sathish Recinos MD Oct 27, 2017 11:46
[2017-10-27 12:15] LABS: INTERNATIONAL NORMALIZED RATIO 1.1 RATIO; PROTHROMBIN TIME - PATIENT 11.4 SEC (9.8-11.6)
[2017-10-27] MEDS ORDERED: Vancomycin Consult Pharmacy 1 EA OTHER SCH (13:30)
--- NOTE | 2017-10-27 14:08 | HHI.HP ---
HPI Service [facility] Primary Care Physician Rick Zarate MD Admission Diagnosis Sepsis, pacemaker infection Chief Complaint: Confusion, infected pacemaker site Travel History International Travel<30 Days: No Contact w/Intl Traveler <30 Da: No Traveled to Known Affected Are: No History of Present Illness Ms. Kay is an 87 y/o WF with RA, hx of atrial fibrillation and SSS s/p PPM, hypothyroidism, COPD, and Sjogren's syndrome. Pt recently had PPM replacement in 08/[address] Wiggins. Pts daughter is at the bedside and reports that at baseline the pt does not move around much out of bed other than when her family is able to get her into a wheelchair by standing and pivoting and that the pt does have some baseline confusion but typically is oriented to person and place. Her daughter reports that she noticed some pus drainage from her PPM incision yesterday. This morning the pt was more confused and had a fever of 101 by temporal thermometer and shaking chills. Family was unable to lift the patient to the wheelchair and so an ambulance was called. In the ED her temp was 104.2. Her BP has been quite low in the ED, most recently with systolic BP in the 80's, and she has received 2L of IVF with NS. A culture of the pus coming from the PPM incision site was taken in the ED prior to abx being given. Pts UA was abnormal and culture is pending. Blood cultures were drawn in the ED. Pt was given Tylenol, IVF, Vancomycin and Zosyn in the ED. Pt denies any abdominal pain, chest pain, nausea or vomiting, but unable to provide much information. Discussed with the pts daughter at bedside and the pt is a full code. 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 Past Surgical History PPM replacement in 08/2017 Appendectomy Cholecystectomy [facility] with BSO Bilateral knee replacement Right hip arthroplasty [facility] in 2011 Reported Medications Prilosec (Omeprazole Magnesium) 20 Mg Tab 20 Mg PO DAILY Aspir-81 (Aspirin) 81 Mg Tabdr 81 Mg PO DAILY K-Tab (Potassium Chloride) 10 Meq Tab 10 Meq PO DAILY Furosemide 20 Mg Tab 20 Mg PO DAILY Tylenol-Codeine #3 (Acetaminophen-Codeine) 300-30 mg Tab 1 Tab PO Q4H PRN Cartia Xt (Diltiazem ER 24 HR) 120 Mg Caper 120 Mg PO DAILY Prednisone 5 Mg Tab 5 Mg PO DAILY Levothyroxine (Levothyroxine Sodium) 100 Mcg Tab 100 Mcg PO DAILY Digoxin 0.125 Mg Tab 0.125 Mg PO DAILY Alprazolam 0.5 Mg Tab 0.25 Mg PO TID PRN Allergies: Coded Allergies: NSAIDS (Non-Steroidal Anti-Inflamma (Verified Allergy, Severe, Shortness of Breath, 10/27/17) cephalexin (Unverified Allergy, Severe, HIVES, 10/27/17) diclofenac (Unverified Allergy, Severe, Itching, 10/27/17) etodolac (Unverified Allergy, Severe, Itching, 10/27/17) flurbiprofen (Unverified Allergy, Severe, Itching, 10/27/17) ibuprofen (Unverified Allergy, Severe, Itching, 10/27/17) indomethacin (Unverified Allergy, Severe, Itching, 10/27/17) ketoprofen (Unverified Allergy, Severe, Itching, 10/27/17) ketorolac (Unverified Allergy, Severe, Itching, 10/27/17) naproxen (Unverified Allergy, Severe, Itching, 10/27/17) oxaprozin (Unverified Allergy, Severe, Itching, 10/27/17) Uncoded Allergies: ANTIINFLAMATORY (Allergy, Severe, ITCHING, 09/16/14) Family History Noncontributory Social History Hx of tobacco use, family reports social tobacco use, none regularly and not for many years Denies any alcohol use Pt lives with her daughter who is her primary rn staff 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 Physical Exam Vital Signs Vital Signs Date Time Temp Pulse Resp B/P (MAP) Pulse Ox O2 Delivery O2 Flow Rate FiO2 10/27/17 13:14 74 22 85/48 (60) 98 Room Air 10/27/17 12:50 78 21 73/44 (54) 100 Nasal Cannula 2.00 10/27/17 11:36 87 21 91/46 (61) 100 Room Air 10/27/17 11:02 93 24 110/54 (72) 97 Room Air 10/27/17 10:34 97 Room Air 10/27/17 10:34 97 Room Air 10/27/17 10:31 92 25 97 Room Air 10/27/17 10:28 104.2 98 33 110/61 (77) 96 Physical Exam GENERAL: Thin elderly female, in no apparent distress. HEENT: Atraumatic. Normocephalic. No temporal or scalp tenderness. No scleral icterus. Airway patent. NECK: Trachea midline, supple, nontender. CARDIO: Regular. RESP: Mild wheeze noted in the left chest anteriorly ABD: +BS, soft, non-tender, nondistended. EXT: Extremities without clubbing, cyanosis, or edema. NEURO: Lethargic. Unable to do neuro assessment. Laboratory Laboratory Tests Test 10/27/17 10:40 10/27/17 10:45 10/27/17 11:45 Lactic Acid Level 1.7 White Blood Count 11.8 Red Blood Count 4.50 Hemoglobin 11.6 Hematocrit 35.6 Mean Corpuscular Volume 78.9 Mean Corpuscular Hemoglobin 25.8 Mean Corpuscular Hemoglobin Concent 32.7 Red Cell Distribution Width 15.9 Platelet Count 200 Mean Platelet Volume 6.9 Neutrophils (%) (Auto) 90.0 Lymphocytes (%) (Auto) 3.9 Monocytes (%) (Auto) 5.8 Eosinophils (%) (Auto) 0.1 Basophils (%) (Auto) 0.2 Neutrophils # (Auto) 10.6 Lymphocytes # (Auto) 0.5 Monocytes # (Auto) 0.7 Eosinophils # (Auto) 0.0 Basophils # (Auto) 0.0 CBC Comment DIFF FINAL Differential Comment Urine Color YELLOW Urine Turbidity HAZY Urine pH 5.5 Urine Specific Eclectic 1.015 Urine Protein 30 Urine Glucose (UA) NEG Urine Ketones NEG Urine Occult Blood NEG Urine Nitrite NEG Urine Bilirubin NEG Urine Urobilinogen 8.0 Urine Leukocyte Esterase NEG Urine RBC 1 Urine WBC LESS THAN 1 Urine Squamous Epithelial Cells 2 Urine Amorphous Sediment RARE Urine Bacteria RARE Urine Hyaline Casts 2 Urine Mucus FEW Microscopic Urinalysis Comment CATH-CULTURE IND Prothrombin Time 11.4 Prothromb Time International Ratio 1.1 Activated Partial Thromboplast Time 24.3 Date/Time Source Procedure Growth Status 10/27/17 10:45 Blood Peripheral Aerobic Blood Culture Pending Received 10/27/17 10:45 Blood Peripheral Anaerobic Blood Culture Pending Received 10/27/17 10:45 Urine Catheterized Urine Urine Culture Pending Received 10/27/17 10:45 Wound Chest Gram Stain Pending Received 10/27/17 10:45 Wound Chest Wound Culture Pending Received Result Diagram: 10/27/17 1045 Imaging Last Impressions Chest X-Ray 10/27/17 1031 Signed Impressions: Service Date/Time: Friday, October 27, 2017 10:43 - CONCLUSION: Negative for infiltrate or failure. Jose Manuel Bailey MD FACR Caprini VTE Risk Assessment Caprini VTE Risk Assessment: Mod/High Risk (score >= 2) Caprini Risk Assessment Model Point Value = 1 Point Value = 2 Point Value = 3 Point Value = 5 Age 41-60 Minor surgery BMI > 25 kg/m2 Swollen legs Varicose veins or History of unexplained or recurrent spontaneous Oral contraceptives or hormone replacement Sepsis (< 1 month) Serious lung disease, including pneumonia (< 1 month) Abnormal pulmonary function Acute myocardial infarction Congestive heart failure (< 1 month) History of inflammatory bowel disease Medical patient at bed rest Age 61-74 Arthroscopic surgery Major open surgery (> 45 min) Laparoscopic surgery (> 45 min) Malignancy Confined to bed (> 72 hours) Immobilizing plaster cast Central venous access Age >= 75 History of VTE Family history of VTE Factor V Leiden Prothrombin [id number] Lupus anticoagulant Anticardiolipin antibodies Elevated serum homocysteine Heparin-induced thrombocytopenia Other congenital or acquired thrombophilia Stroke (< 1 month) Elective arthroplasty Hip, pelvis, or leg fracture Acute spinal cord injury (< 1 month) Prophylaxis Regimen Total Risk Factor Score Risk Level Prophylaxis Regimen 0-1 Low Early ambulation 2 Moderate Order ONE of the following: *Sequential Compression Device (SCD) *Heparin 5000 units SQ BID 3-4 Higher Order ONE of the following medications: *Heparin 5000 units SQ TID *Enoxaparin/Lovenox 40 mg SQ daily (WT < 150 kg, CrCl > 30 mL/min) *Enoxaparin/Lovenox 30 mg SQ daily (WT < 150 kg, CrCl > 10-29 mL/min) *Enoxaparin/Lovenox 30 mg SQ BID (WT < 150 kg, CrCl > 30 mL/min) AND/OR *Sequential Compression Device (SCD) 5 or more Highest Order ONE of the following medications: *Heparin 5000 units SQ TID (Preferred with Epidurals) *Enoxaparin/Lovenox 40 mg SQ daily (WT < 150 kg, CrCl > 30 mL/min) *Enoxaparin/Lovenox 30 mg SQ daily (WT < 150 kg, CrCl > 10-29 mL/min) *Enoxaparin/Lovenox 30 mg SQ BID (WT < 150 kg, CrCl > 30 mL/min) AND *Sequential Compression Device (SCD) Assessment and Plan Problem List: (1) Sepsis ICD Codes: A41.9 - Sepsis, unspecified organism Status: Acute Plan: Sepsis Pacemaker site infection - 87 y/o WF with RA, hx of atrial fibrillation and SSS s/p PPM, hypothyroidism, COPD, and Sjogren's syndrome. Pt recently had PPM replacement in 08/[address] Wiggins. - Her daughter reports that she noticed some pus drainage from her PPM incision yesterday. This morning the pt was more confused and had a fever of 101 by temporal thermometer and shaking chills. Family was unable to lift the patient to the wheelchair and so an ambulance was called. - In the ED her temp was 104.2. Her BP has been quite low in the ED, most recently with systolic BP in the 80's, and she has received 2L of IVF with NS. - A culture of the pus coming from the PPM incision site was taken in the ED prior to abx being given. - UA was abnormal and culture is pending. - Blood cultures were drawn in the ED. - Pt was given Tylenol, IVF, Vancomycin and Zosyn in the ED. - We will continue Zosyn and Vancomycin - We will give some stress steroids as pt has been on chronic Prednisone for several years - Hold off on more IVF at this time as pt has received 2L of fluid and is starting to have some wheezing - Discussed with the pts daughter at bedside and the pt is a full code. - We will admit the pt to IMC, pt has potential for deterioration and is not appropriate for General medical floor at this time. - We will consult Dr. Wiggins - PPI - DVT prophylaxis with SCDs for now Atrial fibrillation Hx of SSS s/p PPM - Hold Cardizem as BP is too low to continue - Cont. Digoxin - Telemetry COPD - Duonebs PRN Hypothyroidism - Cont. home meds Sjogrens syndrome RA - Pt chronically on Prednisone 5mg po daily, this will be held for now - Give stress steroids (2) Pacemaker infection ICD Codes: T82.7XXA - Infection and inflammatory reaction due to other cardiac and vascular devices, implants and grafts, initial encounter Status: Acute (3) Atrial fibrillation ICD Codes: I48.91 - Atrial fibrillation Status: Acute (4) COPD (chronic obstructive pulmonary disease) ICD Codes: J44.9 - Chronic obstructive pulmonary disease, unspecified Status: Acute (5) Hypothyroidism ICD Codes: E03.9 - Hypothyroidism Status: Chronic (6) Anxiety ICD Codes: F41.9 - Anxiety Status: Acute (7) Rheumatoid arthritis ICD Codes: M06.9 - Rheumatoid arthritis Status: Chronic (8) Sjogren's disease ICD Codes: M35.00 - Sjogren's disease Status: Chronic Assessment and Plan Patient examined. Assessment and plan formulated with Ruchi Pierce PA-C. I agree with the above. pacemaker site infection. pus noted from the incision site sent for cx's. zosyn and vanco ordered. pt with hypotension. concern for sepsis and adrenal insufficiency in setting of chronic steroid use. ED gave saline boluses will give dose hydrocortisone for stress dosing. consider q8hrs dosing admit to IMC. Pt is full code per daughter. cardiology consulted. Physician Certification 2 Midnight Certification Type: Admission for Inpatient Services Order for Inpatient Services The services are ordered in accordance with Medicare regulations or non- Medicare payer requirements, as applicable. In the case of services not specified as inpatient-only, they are appropriately provided as inpatient services in accordance with the 2-midnight benchmark. Estimated LOS (days): 3 3 days is the estimated time the patient will need to remain in the hospital, assuming treatment plan goals are met and no additional complications. Post-Hospital Plan: Not yet determined Ruchi Pierce Oct 27, 2017 14:08 Deepak Infante MD Oct 27, 2017 15:07
[2017-10-27 14:34] LABS: ALBUMIN 1.9 GM/DL (3.4-5.0); BICARBONATE 26.7 MEQ/L (21.0-32.0); CALCIUM 7.4 MG/DL (8.5-10.1); CALCIUM-PROTEIN CORRECTED 8.1 MG/DL (8.5-10.1); CREATININE 0.91 MG/DL (0.50-1.00); TOTAL BILIRUBIN ADULT 1.2 MG/DL (0.2-1.0); TOTAL PROTEIN 5.8 GM/DL (6.4-8.2)
[2017-10-27] MEDS ORDERED: HYDROCORTISONE SOD SUCCINATE 100 MG VIAL IV PUSH ONE (15:00)
[2017-10-27] MEDS ORDERED: RESP: ALBUTEROL 2.5 MG/IPRATROPIUM 0.5 MG NEB (PRN) NEB (15:00)
[2017-10-27] MEDS ORDERED: ONDANSETRON HCL 4 MG/2 ML VIAL IV PRN (15:00)
[2017-10-27] MEDS: PANTOPRAZOLE SODIUM 40 MG VIAL IV PUSH SCH (15:17)
[2017-10-27] MEDS ORDERED: HYDROCORTISONE SOD SUCCINATE 100 MG VIAL IV PUSH STA (16:27)
[2017-10-27] MEDS: PIPERACIL-TAZO 3.375 GM PREMIX 50 ML IV SCH ×2 (16:47→23:00)
[2017-10-27] MEDS ORDERED: PIPERACIL-TAZO 4.5 GM PREMIX 100 ML IV SCH (17:00)
[2017-10-27] MEDS ORDERED: SODIUM CHLORID 0.9% 500 ML INJ 500 ML IV ONE (17:00)
[2017-10-27] MEDS: INSULIN ASPART SUPPLEMENTAL SCALE SQ SCH (17:00)
--- NOTE | 2017-10-27 18:40 | RADRPT ---
EXAM DATE/TIME: 10/27/2017 17:45 [facility] COMPARISON: No previous studies available for comparison. INDICATIONS : Swelling left chest. MEDICAL HISTORY : Congestive heart failure. Hypertension. Chronic obstructive pulmonary disease. Thyroid disease. Glauc kendra. Confusion. Numbness. Afib. Rheumatoid arthritis. Osteoporosis. Depression. Anxiety. Measles. Mac ular degeneration. SURGICAL HISTORY : Cholecystectomy. Appendectomy. Hysterectomy. Pacemaker recently replaced. Bilateral cataract removal. Bilateral toe surgery. Knee replacements. Hip replacement. Wrist fracture repair. ENCOUNTER: Initial ACUITY: 1 day PAIN SCORE: 0/10 LOCATION: Left chest AREA EVALUATED: Left chest at incision site. FINDINGS: There is minimal complex fluid along the course of pacemaker wires and just deep to the incision site in the left chest. CONCLUSION: Small volume of complex fluid in the operative sites in the left chest Zurdo Starr MD on October 27, 2017 at 18:36 Board Certified Radiologist. This report was verified electronically.
[2017-10-27] MEDS: HYDROCORTISONE SOD SUCCINATE 100 MG VIAL IV PUSH SCH (21:46)
[2017-10-28] VITALS (20 sets, daily range): BP systolic 92–113; BP diastolic 50–73; PULSE 60–78; RESP 17–34; TEMP 97.5–97.8; O2SAT 95–100
--- NOTE | 2017-10-28 05:34 | RADRPT ---
EXAM DATE/TIME: 10/28/2017 04:27 [facility] COMPARISON: CHEST SINGLE AP, October 27, 2017, 10:43. INDICATIONS : Shortness of breath, possible pulmonary disease. MEDICAL HISTORY : Sepsis. SURGICAL HISTORY : Pacemaker. ENCOUNTER: Subsequent ACUITY: 2 days PAIN SCORE: Non-responsive. LOCATION: Bilateral chest FINDINGS: Mild left base atelectasis. No pleural effusion seen. No pneumothorax. Heart size stable, within normal limits. Cardiac pacer again noted. CONCLUSION: Mild left base atelectasis. Zurdo Woodard MD on October 28, 2017 at 5:32 Board Certified Radiologist. This report was verified electronically.
[2017-10-28] MEDS: PIPERACIL-TAZO 3.375 GM PREMIX 50 ML IV SCH ×4 (05:55→23:00)
[2017-10-28] MEDS: HYDROCORTISONE SOD SUCCINATE 100 MG VIAL IV PUSH SCH ×3 (05:55→22:00)
[2017-10-28] MEDS: LEVOTHYROXINE SODIUM 100 MCG TAB PO SCH (05:55)
[2017-10-28 06:52] LABS: AUTOMATED NEUTROPHIL # 5.9 TH/MM3 (1.8-7.7); BASOPHIL % 0.2 % (0.0-2.0); HEMATOCRIT 31.4 % (35.0-46.0); HEMOGLOBIN 10.1 GM/DL (11.6-15.3); LYMPH % 8.8 % (9.0-44.0); LYMPHOCYTE # 0.6 TH/MM3 (1.0-4.8); MEAN CELL VOLUME 80.5 FL (80.0-100.0); MEAN CORPUSCULAR HGB CONC 32.3 % (32.0-36.0); MEAN PLATELET VOLUME 7.5 FL (7.0-11.0); MONO % 5.5 % (0.0-8.0); MONOCYTE # 0.4 TH/MM3 (0-0.9); NEUT % 85.5 % (16.0-70.0); PLATELET COUNT 217 TH/MM3 (150-450); RED CELL DISTRIBUTION WIDTH 15.6 % (11.6-17.2); WHITE BLOOD COUNT 6.9 TH/MM3 (4.0-11.0)
[2017-10-28 07:17] LABS: BICARBONATE 26.2 MEQ/L (21.0-32.0); CALCIUM 7.8 MG/DL (8.5-10.1); CREATININE 0.72 MG/DL (0.50-1.00); MAGNESIUM 2.1 MG/DL (1.5-2.5)
[2017-10-28] MEDS: INSULIN ASPART SUPPLEMENTAL SCALE SQ SCH ×3 (08:00→16:33)
[2017-10-28] MEDS: ASPIRIN EC 81 MG TABEC PO SCH (08:18)
[2017-10-28] MEDS: DIGOXIN 0.125 MG TAB PO SCH (08:18)
[2017-10-28] MEDS ORDERED: ARTIFICIAL TEARS OPTH SOLN 15 ML BTL EACH EYE ONE (08:30)
--- NOTE | 2017-10-28 08:30 | HHI.PR ---
Subjective Remarks pt more oriented. no vomiting. Objective Vitals more oriented cooperative heart reg lung cta abd s/nt ext no edema left chest pm site...currently no purelent drainage Vital Signs Date Time Temp Pulse Resp B/P (MAP) Pulse Ox O2 Delivery O2 Flow Rate FiO2 10/28/17 06:00 60 10/28/17 04:00 60 10/28/17 02:00 78 10/28/17 00:00 60 10/27/17 22:00 60 10/27/17 20:00 60 10/27/17 18:00 61 10/27/17 16:44 68 19 82/47 (59) 100 Nasal Cannula 2.00 10/27/17 16:42 68 19 82/49 (60) 100 Nasal Cannula 2.00 10/27/17 16:06 67 20 80/46 (57) 100 Nasal Cannula 2.00 10/27/17 15:43 68 19 81/47 (58) 100 Nasal Cannula 2.00 10/27/17 14:23 98.4 68 24 87/51 (63) 99 Nasal Cannula 2.00 10/27/17 13:14 74 22 85/48 (60) 98 Room Air 10/27/17 12:50 78 21 73/44 (54) 100 Nasal Cannula 2.00 10/27/17 11:36 87 21 91/46 (61) 100 Room Air 10/27/17 11:02 93 24 110/54 (72) 97 Room Air 10/27/17 10:34 97 Room Air 10/27/17 10:34 97 Room Air 10/27/17 10:31 92 25 97 Room Air 10/27/17 10:28 104.2 98 33 110/61 (77) 96 Result Diagram: 10/28/17 0345 10/28/17 0345 Imaging Last Impressions Chest X-Ray 10/27/17 1031 Signed Impressions: Service Date/Time: Friday, October 27, 2017 10:43 - CONCLUSION: Negative for infiltrate or failure. Jose Manuel Bailey MD FACR A/P Problem List: (1) Sepsis ICD Codes: A41.9 - Sepsis, unspecified organism Status: Acute Plan: Sepsis Pacemaker site infection - 87 y/o WF with RA, hx of atrial fibrillation and SSS s/p PPM, hypothyroidism, COPD, and Sjogren's syndrome. Pt recently had PPM replacement in 08/[address] Wiggins. - Her daughter reports that she noticed some pus drainage from her PPM incision x 1 day. Pt was more confused and had a fever of 101 by temporal thermometer and shaking chills. Family was unable to lift the patient to the wheelchair and so an ambulance was called. - In the ED her temp was 104.2. Her BP has been quite low in the ED with sbp's 70s - A culture of the pus coming from the PPM incision site was taken in the ED prior to abx being given. Pt was given 2.5 L NS bolus in ED Stress dose steroids were started last night for persist hypotension. last sbp 95 cont broad abx with vanco/zosyn Dr Wiggins consulted. u/s showed complex fluid collection at the pm site. npo until we see if procedure planned. f/u wound and blood cx's Atrial fibrillation Hx of SSS s/p PPM - Hold Cardizem as BP is too low to continue - Cont. Digoxin - Telemetry COPD - Duonebs PRN Hypothyroidism - Cont. home meds Sjogrens syndrome RA - Pt chronically on Prednisone 5mg po daily, this will be held for now - Give stress steroids (2) Pacemaker infection ICD Codes: T82.7XXA - Infection and inflammatory reaction due to other cardiac and vascular devices, implants and grafts, initial encounter Status: Acute (3) Atrial fibrillation ICD Codes: I48.91 - Atrial fibrillation Status: Chronic (4) COPD (chronic obstructive pulmonary disease) ICD Codes: J44.9 - Chronic obstructive pulmonary disease, unspecified Status: Chronic (5) Hypothyroidism ICD Codes: E03.9 - Hypothyroidism Status: Chronic (6) Anxiety ICD Codes: F41.9 - Anxiety Status: Chronic (7) Rheumatoid arthritis ICD Codes: M06.9 - Rheumatoid arthritis Status: Chronic (8) Sjogren's disease ICD Codes: M35.00 - Sjogren's disease Status: Chronic Deepak Infante MD Oct 28, 2017 08:30
[2017-10-28 09:10] LABS: OVALOCYTES 1+ (NORMAL)
[2017-10-28] MEDS: ARTIFICIAL TEARS OPTH SOLN 15 ML BTL EACH EYE PRN ×3 (11:10→18:45)
[2017-10-28] MEDS: VANCOMYCIN 1,000 MG/NS 250 ML IV SCH ×2 (11:12)
[2017-10-28] MEDS: PANTOPRAZOLE SODIUM 40 MG VIAL IV PUSH SCH (14:42)
--- NOTE | 2017-10-28 15:05 | ECHRPT ---
Indication: Sepsis/Endocarditis CONCLUSIONS The left ventricular systolic function is normal with an estimated ejection fraction in the range of 55-60%. Wall thickness is normal. Normal left ventricular size. Trace aortic valve regurgitation. There is mild tricuspid valve regurgitation. The estimated pulmonary arterial pressure is 31 mmHg. calcified nodular density on anterior mitral valve leaflet and/or annulus, spatial resolution of alexandro ges is too limited to distinguish BP: / HR: 60 Rhythm: Sinus MEASUREMENTS (Male / Female) Normal Values Technical Quality:Fair 2D ECHO LV Diastolic Diameter PLAX 3.6 cm 4.2 - 5.9 / 3.9 - 5.3 cm LV Systolic Diameter PLAX 2.7 cm IVS Diastolic Thickness 0.9 cm 0.6 - 1.0 / 0.6 - 0.9 cm LVPW Diastolic Thickness 1.0 cm 0.6 - 1.0 / 0.6 - 0.9 cm LV Relative Wall Thickness 0.5 LVOT Diameter 1.9 cm M-MODE Aortic Root Diameter MM 2.3 cm LA Systolic Diameter MM 2.8 cm LA Ao Ratio MM 1.2 AV Cusp Separation MM 1.6 cm DOPPLER AV Peak Velocity 174.0 cm/s AV Peak Gradient 12.1 mmHg AI Peak Velocity 379.5 cm/s AI Peak Gradient 57.6 mmHg AI Pressure Half Time 480.5 ms LVOT Peak Velocity 87.4 cm/s LVOT Peak Gradient 3.1 mmHg AV Area Cont Eq pk 1.4 cm MR Peak Velocity 380.0 cm/s MR Peak Gradient 57.8 mmHg Mitral E Point Velocity 98.2 cm/s Mitral A Point Velocity 88.4 cm/s Mitral E to A Ratio 1.1 LV E' Lateral Velocity 7.0 cm/s Mitral E to LV E' Lateral Ratio 14.0 LV E' Septal Velocity 6.6 cm/s Mitral E to LV E' Septal Ratio 14.8 TR Peak Velocity 229.0 cm/s TR Peak Gradient 21.0 mmHg Right Atrial Pressure 10.0 mmHg Pulmonary Artery Systolic Pressu 31.0 mmHg Right Ventricular Systolic Press 31.0 mmHg PV Peak Velocity 133.0 cm/s PV Peak Gradient 7.1 mmHg FINDINGS LEFT VENTRICLE The left ventricular systolic function is normal with an estimated ejection fraction in the range of 55-60%. Wall thickness is normal. Normal left ventricular size. RIGHT VENTRICLE Normal right ventricular size and systolic function. LEFT ATRIUM The left atrial size is normal. RIGHT ATRIUM The right atrial size is normal. ATRIAL SEPTUM Normal atrial septal thickness without atrial level shunting by limited color doppler interrogation. AORTA The aortic root and proximal ascending aorta are normal in size on limited imaging. MITRAL VALVE Structurally normal mitral valve. No mitral valve stenosis or regurgitation. AORTIC VALVE Trace aortic valve regurgitation. TRICUSPID VALVE There is mild tricuspid valve regurgitation. The estimated pulmonary arterial pressure is 31 mmHg. PULMONARY VALVE No pulmonary valve regurgitation or stenosis. VESSELS The inferior vena cava is normal in size. PERICARDIUM No pericardial effusion. Dominick Hays MD, FACC, [facility] (Electronically Signed) Final Date:28 October 2017 15:03
--- NOTE | 2017-10-28 23:56 | HHI.PR ---
Subjective Remarks Poor communication Objective Vital Signs Date Time Temp Pulse Resp B/P (MAP) Pulse Ox O2 Delivery O2 Flow Rate FiO2 10/28/17 20:22 99 Nasal Cannula 2.00 10/28/17 18:00 62 10/28/17 16:00 60 10/28/17 16:00 97.5 60 34 92/52 (65) 99 10/28/17 15:00 77 34 111/73 (86) 95 10/28/17 15:00 77 34 111/73 (86) 95 10/28/17 14:00 66 10/28/17 14:00 66 21 100/50 (67) 100 10/28/17 13:00 61 25 99/51 (67) 100 10/28/17 12:00 97.8 63 17 106/53 (70) 100 10/28/17 12:00 63 10/28/17 11:49 64 10/28/17 11:00 61 27 113/58 (76) 98 10/28/17 10:00 64 18 110/53 (72) 100 10/28/17 09:00 64 17 102/52 (69) 99 10/28/17 08:29 100 Nasal Cannula 2.00 10/28/17 08:00 61 10/28/17 08:00 97.8 63 21 111/53 (72) 100 10/28/17 07:00 60 24 95/55 (68) 100 10/28/17 06:00 60 10/28/17 04:00 60 10/28/17 02:00 78 10/28/17 00:00 60 I/O 10/28/17 10/28/17 10/28/17 10/29/17 10/29/17 10/29/17 07:00 15:00 23:00 07:00 15:00 23:00 Intake Total 250 ml 300 ml 524 ml Output Total 100 ml 100 ml Balance 250 ml 200 ml 424 ml Intake Oral 200 ml 474 ml IV Total 50 ml 300 ml 50 ml Output Urine Total 100 ml 100 ml # Voids 5 1 1 # Bowel Movements 2 1 Result Diagram: 10/28/17 0345 10/28/17344 Imaging Alert, in bed Lungs: ventilated Heart: s1, S2 regular Left infraclavicular area with a dry lesion Abdomen: soft, no mass Ext: no edema Last Impressions Chest X-Ray 10/28/17 0600 Signed Impressions: Service Date/Time: October 04:27 - CONCLUSION: Mild left base atelectasis. Zurdo Woodard MD Soft Tissue Ultrasound 10/27/17 0000 Signed Impressions: Service Date/Time: Friday, October 27, 2017 17:45 - CONCLUSION: Small volume of complex fluid in the operative sites in the left chest Zurdo Starr MD Current Medications Medications (Trade) Dose Ordered Sig/Keshawn Route Start Time Stop Time Status Last Admin Pharmacy Profile Note 0 ml @ 0 mls/hr UNSCH OTHER 10/27/17 13:30 (Duoneb Neb) 1 ampule Q2HR NEB PRN NEB 10/27/17 15:00 (Tylenol) 650 mg Q4H PRN PO 10/27/17 15:00 (Zofran Inj) 4 mg Q6H PRN IV 10/27/17 15:00 (Ecotrin Ec) 81 mg DAILY PO 10/28/17 09:00 10/28/17 08:18 (Lanoxin) 0.125 mg DAILY PO 10/28/17 09:00 10/28/17 08:18 (Synthroid) 100 mcg DAILY@0600 PO 10/28/17 06:00 10/28/17 05:55 (Protonix Inj) 40 mg Q24H IV PUSH 10/27/17 15:00 10/28/17 14:42 (NovoLOG SUPPLEMENTAL SCALE) 1 ACHS SLIDING SCALE SQ 10/27/17 17:00 Piperacillin Sod/ Tazobactam Sod 50 ml @ 100 mls/hr Q6H IV 10/27/17 17:00 10/28/17 16:30 (SoluCORTEF INJ) 50 mg Q8HR IV PUSH 10/27/17 22:00 10/28/17 14:42 (Tears Naturale Opth Soln) 1 drop Q4H PRN EACH EYE 10/28/17 08:30 10/28/17 18:45 Vancomycin HCl 1000 mg/Sodium Chloride 250 ml @ 250 mls/hr Q24H IV 10/28/17 10:00 10/28/17 11:12 Miscellaneous Information SPECIFIC LAB TO BE DRAWN:VANCOMYCIN TROUGH DATE TO... ONCE ONCE .XX 10/30/17 09:45 10/30/17 09:46 Assessment and Plan Problem List: (1) Pacemaker infection ICD Codes: T82.7XXA - Infection and inflammatory reaction due to other cardiac and vascular devices, implants and grafts, initial encounter Status: Acute Plan: On antibiotic Dry wound Device will need to be removed Case discussed with patient daughter Dr Jamison will be consulted (2) Sepsis ICD Codes: A41.9 - Sepsis, unspecified organism Status: Acute Plan: On antibiotic Doing better Cherry Wiggins MD Oct 28, 2017 23:56
[2017-10-29] VITALS (14 sets, daily range): BP systolic 90–138; BP diastolic 54–64; PULSE 49–73; RESP 20–30; TEMP 97.5–98.5; O2SAT 95–100
[2017-10-29] MEDS: PIPERACIL-TAZO 3.375 GM PREMIX 50 ML IV SCH ×2 (06:08→11:10)
[2017-10-29] MEDS: LEVOTHYROXINE SODIUM 100 MCG TAB PO SCH (06:08)
[2017-10-29] MEDS: HYDROCORTISONE SOD SUCCINATE 100 MG VIAL IV PUSH SCH ×3 (06:08→20:46)
[2017-10-29] MEDS ORDERED: SODIUM CHLOR 0.9% 1000 ML INJ 1,000 ML IV SCH (07:30)
[2017-10-29] MEDS: SODIUM CHLOR 0.9% 1000 ML INJ 1,000 ML IV SCH ×3 (08:00→21:04)
[2017-10-29] MEDS: INSULIN ASPART SUPPLEMENTAL SCALE SQ SCH ×4 (08:00→20:46)
--- NOTE | 2017-10-29 08:13 | HHI.PR ---
Subjective Remarks mild confusion. able to reorient Objective Vitals heart reg lung cta abd s/nt ext no edema no pus at pm site today. Vital Signs Date Time Temp Pulse Resp B/P (MAP) Pulse Ox O2 Delivery O2 Flow Rate FiO2 10/29/17 06:00 51 10/29/17 04:00 50 10/29/17 04:00 97.8 60 20 138/64 (88) 100 10/29/17 03:56 96 Nasal Cannula 2.00 10/29/17 02:00 49 10/29/17 00:00 69 10/29/17 00:00 97.5 69 20 123/59 (80) 100 10/28/17 22:00 66 10/28/17 20:22 99 Nasal Cannula 2.00 10/28/17 20:00 70 10/28/17 20:00 97.5 70 22 96/55 (69) 99 10/28/17 18:00 62 10/28/17 16:00 60 10/28/17 16:00 97.5 60 34 92/52 (65) 99 10/28/17 15:00 77 34 111/73 (86) 95 10/28/17 15:00 77 34 111/73 (86) 95 10/28/17 14:00 66 10/28/17 14:00 66 21 100/50 (67) 100 10/28/17 13:00 61 25 99/51 (67) 100 10/28/17 12:00 97.8 63 17 106/53 (70) 100 10/28/17 12:00 63 10/28/17 11:49 64 10/28/17 11:00 61 27 113/58 (76) 98 10/28/17 10:00 64 18 110/53 (72) 100 10/28/17 09:00 64 17 102/52 (69) 99 10/28/17 08:29 100 Nasal Cannula 2.00 Result Diagram: 10/28/17 0345 10/28/17 0345 Imaging Last Impressions Chest X-Ray 10/27/17 1031 Signed Impressions: Service Date/Time: Friday, October 27, 2017 10:43 - CONCLUSION: Negative for infiltrate or failure. Jose Manuel Bailey MD FACR A/P Problem List: (1) Sepsis ICD Codes: A41.9 - Sepsis, unspecified organism Status: Acute Plan: Sepsis Pacemaker site infection - 87 y/o WF with RA, hx of atrial fibrillation and SSS s/p PPM, hypothyroidism, COPD, and Sjogren's syndrome. Pt recently had PPM replacement in 08/[address] Wiggins. - Her daughter reports that she noticed some pus drainage from her PPM incision x 1 day. Pt was more confused and had a fever of 101 by temporal thermometer and shaking chills. Family was unable to lift the patient to the wheelchair and so an ambulance was called. - In the ED her temp was 104.2. Her BP has been quite low in the ED with sbp's 70s - A culture of the pus coming from the PPM incision site was taken in the ED prior to abx being given. Pt was given 2.5 L NS bolus in ED. cont ivf while npo Stress dose steroids were started for persist hypotension. bp stable. will start to wean back to baseline dose cont broad abx with vanco/zosyn Dr Wiggins consulted. u/s showed complex fluid collection at the pm site. CTS consulted for removal f/u wound and blood cx's Atrial fibrillation Hx of SSS s/p PPM - Hold Cardizem as BP is too low to continue - Cont. Digoxin - Telemetry COPD - Duonebs PRN Hypothyroidism - Cont. home meds Sjogrens syndrome RA - Pt chronically on Prednisone 5mg po daily, this will be held for now - Give stress steroids (2) Pacemaker infection ICD Codes: T82.7XXA - Infection and inflammatory reaction due to other cardiac and vascular devices, implants and grafts, initial encounter Status: Acute (3) Atrial fibrillation ICD Codes: I48.91 - Atrial fibrillation Status: Chronic (4) COPD (chronic obstructive pulmonary disease) ICD Codes: J44.9 - Chronic obstructive pulmonary disease, unspecified Status: Chronic (5) Hypothyroidism ICD Codes: E03.9 - Hypothyroidism Status: Chronic (6) Anxiety ICD Codes: F41.9 - Anxiety Status: Chronic (7) Rheumatoid arthritis ICD Codes: M06.9 - Rheumatoid arthritis Status: Chronic (8) Sjogren's disease ICD Codes: M35.00 - Sjogren's disease Status: Chronic Deepak Infante MD Oct 29, 2017 08:13
[2017-10-29] MEDS: ASPIRIN EC 81 MG TABEC PO SCH (08:26)
[2017-10-29] MEDS: VANCOMYCIN 1,000 MG/NS 250 ML IV SCH ×2 (08:27)
[2017-10-29] MEDS: DIGOXIN 0.125 MG TAB PO SCH (08:28)
--- NOTE | 2017-10-29 12:32 | MB ---
cc: Meagan Pichardo DATE: 10/29/2017 HISTORY OF PRESENT ILLNESS: An 87-year-old female, patient of Dr. Rick Zarate, Dr. Cavlin Fisher, and Dr. Wiggins, history of symptomatic bradycardia, previous pacer that had a generator change out on 09/01/[address] Wiggins, Biotronik device. The patient was discharged home and apparently per the note she does live at home with her daughter. She is a very frail female but normally she is able to get up and at least can walk to the bathroom and back. She has significant history of rheumatoid arthritis with severe degenerative changes. Per the notes, the daughter had reported increased confusion from her baseline and also some pus draining from the pacemaker site prior to admission. Fever was about 101. They normally are able to get her up in a wheelchair, but they were unable to lift her, so they called in Evac. Temperature in the ED was 104.2. Blood pressure was also very low with systolic blood pressures in the 80s. She did receive IV fluids. The culture from the pacemaker site showed Staph aureus in the wound culture and also the blood cultures x 4 bottles were positive for Staph aureus. She is currently on vancomycin and Zosyn. She has not been seen by ID. We were consulted by Dr. Wiggins for device removal. 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 She has just had a recent generator pacemaker change out 08/2017, Biotronik device. PAST SURGICAL HISTORY: Include appendectomy, cholecystectomy, total abdominal hysterectomy, bilateral salpingo-oophorectomy, bilateral knee replacement, right hip arthroplasty, heart catheterization in 08/23. The implant device this last time is a Biotronik; however, the right atrial pacing and sensing is a Medtronic model, the right ventricular pacing and sensing is a Biotronik. ALLERGIES: INCLUDE KEFLEX, DICLOFENAC OR ACTUALLY ALL NSAIDS, OXAPROZIN. HOME MEDICATIONS: Include: 1. Prilosec. 2. Aspirin. 3. Potassium. 4. Lasix. 5. Cartia. 6. Chronic steroid use, Prednisone 5 mg. 7. Levothyroxine. 8. Digoxin. 9. Xanax. FAMILY HISTORY: Noncontributory. SOCIAL HISTORY: She lives with her daughter, who is her primary labor commissioner. 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 She has limited ambulation due to her severe rheumatoid arthritis. REVIEW OF SYSTEMS: As above in the HPI. The 12-system unremarkable. PHYSICAL EXAMINATION: GENERAL: A very frail-appearing female in no acute distress. VITAL SIGNS: Blood pressure 140/90, heart rate of 84, temperature 97. NEUROLOGIC: The patient is awake. She is somewhat lethargic. She does answer my questions appropriately. HEENT: Head is normocephalic, atraumatic. Pupils equal and reactive. Oral mucosa slightly dry. NECK: Supple. No JVD. CARDIOVASCULAR: Heart sounds S1, S2. Regular rate and rhythm. CHEST: She has got an incision in the left upper chest wall with some mild erythema and some scabbing, tender to the touch. LUNGS: Diminished in the bases, otherwise clear. ABDOMEN: Soft, nontender. No masses or organomegaly. EXTREMITIES: No cyanosis, clubbing, or edema. DIAGNOSTIC STUDIES: Lab work shows hemoglobin of 9.9, hematocrit of 30, white cell count is 6.8, platelet count of 236. Sodium 135, potassium 4.0, BUN of 9, creatinine 0.52. INR 1.1. Urinalysis unremarkable. Blood cultures as above. Hemoglobin of 10.1, hematocrit of 31, white cell count of 6.9, platelet count of 217. Sodium 142, potassium 4.0, BUN of 30 with a creatinine of 0.72. Lactic acid 1.7, magnesium level 2.1, albumin 1.9. INR 1.1. Urinalysis shows rare bacteria. MRSA positive detected. The wound cultures and the blood cultures as above. Soft tissue ultrasound: Small volume of complex fluid and the operative sites in the left chest. Chest x-ray on the : Mild left base atelectasis. EKG: Pacer dependent. Ventricular pacing. ASSESSMENT AND PLAN: This is an 87-year-old, very frail female with recent generator change out in 08/2017 with a Biotronik device now with positive blood cultures and positive wound cultures. Request per is for removal of the device itself. Timing will be discussed and decided by Dr. Bass secondary to infection, inflammatory reaction to vascular device implant. In the meantime recommendation is also for ID consult Please note, again, the patient is pacer dependent. ILIANA Bermudez MD JRT/NELSON , 11:58 AM , 12:31 PM
[2017-10-29] MEDS: PANTOPRAZOLE SODIUM 40 MG VIAL IV PUSH SCH (14:40)
[2017-10-29] MEDS ORDERED: VANCOMYCIN INJ 1,000 MG in SODIUM CHLOR 0.9% 250 ML INJ 250 ML IV SCH (17:15)
[2017-10-29] MEDS ORDERED: SODIUM CHLORIDE 0.9% FLUSH 10 ML FLUSH IV FLUSH PRN (17:15)
[2017-10-29] MEDS ORDERED: DEXTROSE 50% IN WATER 50 ML VIAL(D50) IV PUSH PRN (17:15)
[2017-10-29] MEDS ORDERED: CHLORHEXIDINE GLUCONATE 4% SOLN 120 ML BTL TOPICAL SCH (17:15)
[2017-10-29] MEDS: ACETAMINOPHEN 325 MG TAB PO PRN (18:30)
[2017-10-29] MEDS: SODIUM CHLORIDE 0.9% FLUSH 10 ML FLUSH IV FLUSH SCH (20:45)
[2017-10-30] VITALS (14 sets, daily range): BP systolic 115–144; BP diastolic 57–70; PULSE 60–98; RESP 19–35; TEMP 97.6–98.5; O2SAT 94–100
[2017-10-30] MEDS: HYDROCORTISONE SOD SUCCINATE 100 MG VIAL IV PUSH SCH ×2 (06:14→19:51)
[2017-10-30] MEDS: LEVOTHYROXINE SODIUM 100 MCG TAB PO SCH (06:14)
[2017-10-30] MEDS: INSULIN ASPART SUPPLEMENTAL SCALE SQ SCH ×4 (08:00→20:07)
--- NOTE | 2017-10-30 08:30 | HHI.PR ---
Subjective Remarks more oriented. Objective Vitals heart reg lung cta abd s/nt ext no edema currently no pus at pm site Vital Signs Date Time Temp Pulse Resp B/P (MAP) Pulse Ox O2 Delivery O2 Flow Rate FiO2 10/30/17 07:33 99 21 10/30/17 06:00 60 10/30/17 04:00 60 10/30/17 04:00 98.5 60 22 128/60 (82) 99 10/30/17 02:00 60 10/30/17 00:37 94 Nasal Cannula 2.00 10/30/17 00:00 97.6 60 19 115/57 (76) 99 10/30/17 00:00 60 10/29/17 22:00 60 10/29/17 20:00 97.9 60 22 90/54 (66) 97 10/29/17 20:00 60 10/29/17 19:30 12 10/29/17 18:00 61 10/29/17 16:00 61 10/29/17 16:00 98.2 61 27 92/54 (67) 98 10/29/17 14:26 100 Nasal Cannula 2.00 10/29/17 14:00 73 10/29/17 12:00 98.4 61 23 126/59 (81) 95 10/29/17 12:00 61 10/29/17 10:00 60 Result Diagram: 10/28/17 0345 10/28/17 0345 Imaging Last Impressions Chest X-Ray 10/27/17 1031 Signed Impressions: Service Date/Time: Friday, October 27, 2017 10:43 - CONCLUSION: Negative for infiltrate or failure. Jose Manuel Bailey MD FACR A/P Problem List: (1) Sepsis ICD Codes: A41.9 - Sepsis, unspecified organism Status: Acute Plan: Sepsis Pacemaker site infection MSSA pm infection/sepsis - 87 y/o WF with RA, hx of atrial fibrillation and SSS s/p PPM, hypothyroidism, COPD, and Sjogren's syndrome. Pt recently had PPM replacement in 08/[address] Wiggins. - Her daughter reports that she noticed some pus drainage from her PPM incision x 1 day. Pt was more confused and had a fever of 101 by temporal thermometer and shaking chills. Family was unable to lift the patient to the wheelchair and so an ambulance was called. - In the ED her temp was 104.2. Her BP has been quite low in the ED with sbp's 70s - A culture of the pus coming from the PPM incision site was taken in the ED prior to abx being given. Pt was given 2.5 L NS bolus in ED. stop ivf. tolerating diet Stress dose steroids were started for persist hypotension. bp stable. continue wean back to baseline dose stop zosyn. on vanco. consider rocephine 2gm...(pt allergic to cephalexin) ..consult ID Dr Wiggins consulted. u/s showed complex fluid collection at the pm site. CTS consulted for removal early next week she will need survellience blood cx soon. Pt consulted dvt prophylaxis Atrial fibrillation Hx of SSS s/p PPM - Hold Cardizem as BP is too low to continue - Cont. Digoxin - Telemetry COPD - Duonebs PRN Hypothyroidism - Cont. home meds Sjogrens syndrome RA - Pt chronically on Prednisone 5mg po daily, this will be held for now - Give stress steroids and taper (2) Pacemaker infection ICD Codes: T82.7XXA - Infection and inflammatory reaction due to other cardiac and vascular devices, implants and grafts, initial encounter Status: Acute (3) Atrial fibrillation ICD Codes: I48.91 - Atrial fibrillation Status: Chronic (4) COPD (chronic obstructive pulmonary disease) ICD Codes: J44.9 - Chronic obstructive pulmonary disease, unspecified Status: Chronic (5) Hypothyroidism ICD Codes: E03.9 - Hypothyroidism Status: Chronic (6) Anxiety ICD Codes: F41.9 - Anxiety Status: Chronic (7) Rheumatoid arthritis ICD Codes: M06.9 - Rheumatoid arthritis Status: Chronic (8) Sjogren's disease ICD Codes: M35.00 - Sjogren's disease Status: Chronic Deepak Infante MD Oct 30, 2017 08:30
[2017-10-30] MEDS: ASPIRIN EC 81 MG TABEC PO SCH (08:33)
[2017-10-30] MEDS: DIGOXIN 0.125 MG TAB PO SCH (08:33)
[2017-10-30] MEDS: SODIUM CHLORIDE 0.9% FLUSH 10 ML FLUSH IV FLUSH SCH ×2 (08:34→19:51)
[2017-10-30] MEDS ORDERED: PHARMACY ORDERED LAB ONE (09:45)
--- NOTE | 2017-10-30 10:00 | PD.CONS ---
History of Present Illness Service Infectious disease Consult Requested By Dr Mac Alvarez Reason for Consult Evaluate patient with infected pacemaker Primary Care Physician Rick Zarate MD Diagnoses: History of Present Illness Patient seen and examined. Records reviewed. Patient is a very poor historian. Patient is an 87-year-old female, brought into the hospital for further evaluation of fever and confusion. Patient has sick sinus syndrome and had her pacemaker placed originally in 2009. In August she underwent replacement of the generator. The day prior to admission she apparently was noted to have some purulent drainage coming out of her incision. On the day of admission she was very confused and had a fever with some shaking chills. She was brought into the hospital for further evaluation and treatment. In the emergency room her temperature was up to 104. Patient remains confused. There was no mention of any other symptom as far as respiratory complaint, nausea or vomiting. Was no mention of any problem with urination, or any diarrhea. In the ED she had some hypotension, and received normal saline with improvement of her hemodynamics. Her WBC was 11,000 yesterday, and is down to normal. Her temperatures are better. Cardiothoracic surgery has been consulted for explantation of her pacemaker. Infectious disease consultation has been requested to evaluate the patient. Review of Systems ROS Limitations: Clinical Condition, Altered Mental Status Constitutional: COMPLAINS OF: Fever, Chills Psychiatric: COMPLAINS OF: Confusion Past Family Social History Allergies: Coded Allergies: NSAIDS (Non-Steroidal Anti-Inflamma (Verified Allergy, Severe, Shortness of Breath, 10/27/17) cephalexin (Unverified Allergy, Severe, HIVES, 10/27/17) diclofenac (Unverified Allergy, Severe, Itching, 10/27/17) etodolac (Unverified Allergy, Severe, Itching, 10/27/17) flurbiprofen (Unverified Allergy, Severe, Itching, 10/27/17) ibuprofen (Unverified Allergy, Severe, Itching, 10/27/17) indomethacin (Unverified Allergy, Severe, Itching, 10/27/17) ketoprofen (Unverified Allergy, Severe, Itching, 10/27/17) ketorolac (Unverified Allergy, Severe, Itching, 10/27/17) naproxen (Unverified Allergy, Severe, Itching, 10/27/17) oxaprozin (Unverified Allergy, Severe, Itching, 10/27/17) Uncoded Allergies: ANTIINFLAMATORY (Allergy, Severe, ITCHING, 09/16/14) Past Medical History COPD Hypothyroidism RA Sjgren's syndrome Atrial fibrillation SSS s/p PPM Anxiety GERD HTN 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 Past Surgical History PPM replacement in 08/2017 Appendectomy Cholecystectomy WAYLON with BSO Bilateral knee replacement Right hip arthroplasty [facility] in 2011 Active Ordered Medications Current Medications Medications (Trade) Dose Ordered Sig/Keshawn Route Start Time Stop Time Status Last Admin Pharmacy Profile Note 0 ml @ 0 mls/hr UNSCH OTHER 10/27/17 13:30 (Duoneb Neb) 1 ampule Q2HR NEB PRN NEB 10/27/17 15:00 (Tylenol) 650 mg Q4H PRN PO 10/27/17 15:00 10/29/17 18:30 (Zofran Inj) 4 mg Q6H PRN IV 10/27/17 15:00 (Ecotrin Ec) 81 mg DAILY PO 10/28/17 09:00 10/30/17 08:33 (Lanoxin) 0.125 mg DAILY PO 10/28/17 09:00 10/30/17 08:33 (Synthroid) 100 mcg DAILY@0600 PO 10/28/17 06:00 10/30/17 06:14 (Protonix Inj) 40 mg Q24H IV PUSH 10/27/17 15:00 10/29/17 14:40 (NovoLOG SUPPLEMENTAL SCALE) 1 ACHS SLIDING SCALE SQ 10/27/17 17:00 10/29/17 16:39 (Tears Naturale Opth Soln) 1 drop Q4H PRN EACH EYE 10/28/17 08:30 10/28/17 18:45 Vancomycin HCl 1000 mg/Sodium Chloride 250 ml @ 250 mls/hr Q24H IV 10/28/17 10:00 10/29/17 08:27 (NS Flush) 2 ml BID IV FLUSH 10/29/17 21:00 10/30/17 08:34 (NS Flush) 2 ml UNSCH PRN IV FLUSH 10/29/17 17:15 Vancomycin HCl 1000 mg/Sodium Chloride 1,000 ml @ 0 mls/hr [employer] IRRIGATION 10/29/17 17:15 11/05/17 17:14 Vancomycin HCl 1000 mg/Sodium Chloride 250 ml @ 250 mls/hr [employer]ANT IV 10/29/17 17:15 11/05/17 17:14 (Hibiclens 4% Top Soln) 1 applic [employer]ANT TOPICAL 10/29/17 17:15 11/05/17 17:14 (D50w (Vial) Inj) 50 ml UNSCH PRN IV PUSH 10/29/17 17:15 (SoluCORTEF INJ) 25 mg Q12HR IV PUSH 10/30/17 21:00 Family History Noncontributory Social History Hx of tobacco use, family reports social tobacco use, none regularly and not for many years Denies any alcohol use Pt lives with her daughter who is her primary community development manager 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 Physical Exam Vital Signs Vital Signs Date Time Temp Pulse Resp B/P (MAP) Pulse Ox O2 Delivery O2 Flow Rate FiO2 10/30/17 07:33 99 21 10/30/17 06:00 60 10/30/17 04:00 60 10/30/17 04:00 98.5 60 22 128/60 (82) 99 10/30/17 02:00 60 10/30/17 00:37 94 Nasal Cannula 2.00 10/30/17 00:00 97.6 60 19 115/57 (76) 99 10/30/17 00:00 60 10/29/17 22:00 60 10/29/17 20:00 97.9 60 22 90/54 (66) 97 10/29/17 20:00 60 10/29/17 19:30 12 10/29/17 18:00 61 10/29/17 16:00 61 10/29/17 16:00 98.2 61 27 92/54 (67) 98 10/29/17 14:26 100 Nasal Cannula 2.00 10/29/17 14:00 73 10/29/17 12:00 98.4 61 23 126/59 (81) 95 10/29/17 12:00 61 10/29/17 10:00 60 Physical Exam GENERAL: Patient is a frail thin, well-developed female, awake and alert, not in respiratory distress. SKIN: Cool and dry. No generalized rash, no ecchymoses and no evidence of embolic lesions. HEAD: Atraumatic. Normocephalic. No temporal wasting, or tenderness. EYES: [place] conjunctiva. No petechia or hemorrhage. Pupils equal, round and reactive to light. Extraocular movements full and intact. No scleral icterus. No injection or drainage. EARS, NOSE AND THROAT: Nose without bleeding or purulent nasal discharge. No sinus tenderness. Dry oral mucosa, she is edentulous. NECK: Trachea midline. Supple and not tender, no meningeal signs CARDIOVASCULAR: Regular rate and rhythm. No murmurs, rubs or gallops heard. Pacemaker site in L upper chest, has some crusting on her incision and has some fluid filled areas. RESPIRATORY: Clear to auscultation. Breath sounds equal bilaterally. No rales , wheezing or rhonchi. Decreased breath sounds at the bases. ABDOMEN: Soft, non-tender, nondistended. Bowel sounds present and normoactive. No guarding. No rebound. No organomegaly. EXTREMITIES: No clubbing, cyanosis, or edema. Has deformities in all her fingers C/W her Hx RA. No joint effusion, has good ROM. No calf tenderness. Well perfused and warm. NEUROLOGICAL: Awake and alert. No facial asymmetry. Moves all her extremities. PSYCHIATRIC: Normal affect, calm and cooperative. Confused LINE: No evidence of infection Laboratory Laboratory Tests Test 10/30/17 04:12 Date/Time Source Procedure Growth Status 10/27/17 10:45 Blood Peripheral Aerobic Blood Culture - Preliminary Staphylococcus Aureus Resulted 10/27/17 10:45 Anaerobic Blood Culture - Final Staphylococcus Aureus Resulted 10/27/17 10:45 Urine Catheterized Urine Urine Culture - Final NO GROWTH IN 48 HOURS. Complete 10/27/17 10:45 Wound Chest Gram Stain - Final Complete 10/27/17 10:45 Wound Culture - Final Staphylococcus Aureus Complete Result Diagram: 10/28/17 0345 10/28/17 0345 Imaging RADIOLOGY STUDIES/FILMS REVIEWED Last Impressions Chest X-Ray 10/28/17 0600 Signed Impressions: Service Date/Time: October 04:27 - CONCLUSION: Mild left base atelectasis. Zurdo Woodard MD Soft Tissue Ultrasound 10/27/17 0000 Signed Impressions: Service Date/Time: Friday, October 27, 2017 17:45 - CONCLUSION: Small volume of complex fluid in the operative sites in the left chest Zurdo Starr MD Assessment and Plan Assessment and Plan IMPRESSION MSSA sepsis, due to infected pacemaker Pacemaker infection SSS, S/P pacemaker 2009, exchange Aug 2017 Hx RA and Sjogren Encephalopathy due to sepsis RECOMMENDATION Repeat BC to document clearing IV Oxacillin (she has tolerated 3 days of IV Zosyn) Stop vancomycin CTS to evaluate removal of pacer and leads Patient per report is pacer dependent She will need a long course of IV Abx - will determine course once work-up is completed Follow C/S Monitor clinical progress I will follow along with you Thank you for this consultation Discussed Condition With Discussed with Edwige Dominguez MD Oct 30, 2017 10:00
[2017-10-30 12:36] LABS: BICARBONATE 23.8 MEQ/L (21.0-32.0); CREATININE 0.57 MG/DL (0.50-1.00)
[2017-10-30] MEDS: OXACILLIN INJ 2 GM in SODIUM CHLORIDE 0.9% INJ 100 ML IV SCH ×4 (13:02→22:56)
[2017-10-30] MEDS ORDERED: POTASSIUM CHLORIDE 20 MEQ CONTROLLED RELEASE TAB PO ONE (13:30)
[2017-10-30] MEDS: PANTOPRAZOLE SODIUM 40 MG VIAL IV PUSH SCH (15:53)
[2017-10-30] MEDS: ACETAMINOPHEN 325 MG TAB PO PRN (19:50)
[2017-10-31] VITALS (14 sets, daily range): BP systolic 100–124; BP diastolic 54–73; PULSE 59–94; RESP 21–32; TEMP 97.6–98.7; O2SAT 93–100
[2017-10-31] MEDS: OXACILLIN INJ 2 GM in SODIUM CHLORIDE 0.9% INJ 100 ML IV SCH ×6 (02:43→23:20)
[2017-10-31 04:42] LABS: BICARBONATE 27.9 MEQ/L (21.0-32.0); CREATININE 0.49 MG/DL (0.50-1.00); MAGNESIUM 2.1 MG/DL (1.5-2.5)
[2017-10-31] MEDS: LEVOTHYROXINE SODIUM 100 MCG TAB PO SCH (06:05)
[2017-10-31] MEDS: INSULIN ASPART SUPPLEMENTAL SCALE SQ SCH ×4 (07:35→19:55)
--- NOTE | 2017-10-31 07:59 | HHI.PR ---
Subjective Remarks a little more confused re oriented her. Objective Vitals lying in bed heart reg lung cta abd s/nt ext no edema pm pocket. no pus at incision site Vital Signs Date Time Temp Pulse Resp B/P (MAP) Pulse Ox O2 Delivery O2 Flow Rate FiO2 10/31/17 06:00 59 10/31/17 04:00 98.4 62 21 124/60 (81) 99 10/31/17 04:00 62 10/31/17 02:00 60 10/31/17 00:00 60 10/31/17 00:00 98.7 60 21 113/54 (73) 97 10/30/17 22:00 66 10/30/17 20:00 98.5 98 35 144/70 (94) 98 10/30/17 20:00 98 10/30/17 18:00 84 10/30/17 16:00 65 10/30/17 16:00 97.6 65 28 120/58 (78) 98 10/30/17 14:00 60 10/30/17 12:00 98.2 60 22 143/65 (91) 100 10/30/17 12:00 60 10/30/17 10:00 66 10/30/17 08:00 98.3 61 19 129/60 96 10/30/17 08:00 61 10/31/17 10/31/17 11/01/17 15:00 23:00 07:00 Intake Total 100 ml Balance 100 ml IV Total 100 ml Result Diagram: 10/28/17 0345 10/31/17 0405 Imaging Last Impressions Chest X-Ray 10/27/17 1031 Signed Impressions: Service Date/Time: Friday, October 27, 2017 10:43 - CONCLUSION: Negative for infiltrate or failure. Jose Manuel Bailey MD FACR A/P Problem List: (1) Sepsis ICD Codes: A41.9 - Sepsis, unspecified organism Status: Acute Plan: Sepsis Pacemaker site infection MSSA pm infection/sepsis - 87 y/o WF with RA, hx of atrial fibrillation and SSS s/p PPM, hypothyroidism, COPD, and Sjogren's syndrome. Pt recently had PPM replacement in 08/[address] Wiggins. - Her daughter reports that she noticed some pus drainage from her PPM incision x 1 day. Pt was more confused and had a fever of 101 by temporal thermometer and shaking chills. Family was unable to lift the patient to the wheelchair and so an ambulance was called. - In the ED her temp was 104.2. Her BP has been quite low in the ED with sbp's 70s - A culture of the pus coming from the PPM incision site was taken in the ED prior to abx being given. Pt was given 2.5 L NS bolus in ED. stop ivf. tolerating diet. Stress dose steroids were started for persist hypotension. bp stable. continue wean back to baseline dose stopped zosyn 10/29.. on vanco but stopped 10/30. oxacillin started on 10/30 and vanco stopped....(pt allergic to cephalexin)..consulted ID Dr Wiggins consulted. u/s showed complex fluid collection at the pm site. CTS consulted for removal early next week survellience blood cx pending Pt consulted dvt prophylaxis Atrial fibrillation Hx of SSS s/p PPM - Hold Cardizem as BP is too low to continue - Cont. Digoxin - Telemetry COPD - Duonebs PRN Hypothyroidism - Cont. home meds Sjogrens syndrome RA - Pt chronically on Prednisone 5mg po daily, this will be held for now - Give stress steroids and taper (2) Pacemaker infection ICD Codes: T82.7XXA - Infection and inflammatory reaction due to other cardiac and vascular devices, implants and grafts, initial encounter Status: Acute (3) Atrial fibrillation ICD Codes: I48.91 - Atrial fibrillation Status: Chronic (4) COPD (chronic obstructive pulmonary disease) ICD Codes: J44.9 - Chronic obstructive pulmonary disease, unspecified Status: Chronic (5) Hypothyroidism ICD Codes: E03.9 - Hypothyroidism Status: Chronic (6) Anxiety ICD Codes: F41.9 - Anxiety Status: Chronic (7) Rheumatoid arthritis ICD Codes: M06.9 - Rheumatoid arthritis Status: Chronic (8) Sjogren's disease ICD Codes: M35.00 - Sjogren's disease Status: Chronic Deepak Infante MD Oct 31, 2017 07:59
[2017-10-31] MEDS: ASPIRIN EC 81 MG TABEC PO SCH (08:11)
[2017-10-31] MEDS: DIGOXIN 0.125 MG TAB PO SCH (08:11)
[2017-10-31] MEDS: SODIUM CHLORIDE 0.9% FLUSH 10 ML FLUSH IV FLUSH SCH ×2 (08:12→19:54)
[2017-10-31] MEDS: HYDROCORTISONE SOD SUCCINATE 100 MG VIAL IV PUSH SCH ×2 (08:12→19:54)
--- NOTE | 2017-10-31 14:05 | HHI.IDPN ---
Subjective Subjective Remarks Patient is an 87-year-old female, brought into the hospital for further evaluation of fever and confusion. Patient has sick sinus syndrome and had her pacemaker placed originally in 2009. In August she underwent replacement of the generator. The day prior to admission she apparently was noted to have some purulent drainage coming out of her incision. On the day of admission she was very confused and had a fever with some shaking chills. She was brought into the hospital for further evaluation and treatment. In the emergency room her temperature was up to 104. Patient remains confused. There was no mention of any other symptom as far as respiratory complaint, nausea or vomiting. Was no mention of any problem with urination, or any diarrhea. In the ED she had some hypotension, and received normal saline with improvement of her hemodynamics. Her WBC was 11,000 yesterday, and is down to normal. Her temperatures are better. Cardiothoracic surgery has been consulted for explantation of her pacemaker. Infectious disease consultation has been requested to evaluate the patient. Notes reviewed Discussed with RN Daughter at bedside Daughter states mental status is better No new positive blood culture OR plans for November 02 No new positive blood culture Admission blood culture and wound culture with MSSA Antibiotics Oxacillin Current Medications Medications (Trade) Dose Ordered Sig/Keshawn Route Start Time Stop Time Status Last Admin (Duoneb Neb) 1 ampule Q2HR NEB PRN NEB 10/27/17 15:00 (Tylenol) 650 mg Q4H PRN PO 10/27/17 15:00 10/30/17 19:50 (Zofran Inj) 4 mg Q6H PRN IV 10/27/17 15:00 (Ecotrin Ec) 81 mg DAILY PO 10/28/17 09:00 10/31/17 08:11 (Lanoxin) 0.125 mg DAILY PO 10/28/17 09:00 10/31/17 08:11 (Synthroid) 100 mcg DAILY@0600 PO 10/28/17 06:00 10/31/17 06:05 (Protonix Inj) 40 mg Q24H IV PUSH 10/27/17 15:00 10/30/17 15:53 (NovoLOG SUPPLEMENTAL SCALE) 1 ACHS SLIDING SCALE SQ 10/27/17 17:00 10/31/17 12:00 (Tears Naturale Opth Soln) 1 drop Q4H PRN EACH EYE 10/28/17 08:30 10/28/17 18:45 (NS Flush) 2 ml BID IV FLUSH 10/29/17 21:00 10/31/17 08:12 (NS Flush) 2 ml UNSCH PRN IV FLUSH 10/29/17 17:15 Vancomycin HCl 1000 mg/Sodium Chloride 1,000 ml @ 0 mls/hr WEBSITE ADMIN IRRIGATION 10/29/17 17:15 11/05/17 17:14 Vancomycin HCl 1000 mg/Sodium Chloride 250 ml @ 250 mls/hr WEBSITE ADMIN IV 10/29/17 17:15 11/05/17 17:14 (Hibiclens 4% Top Soln) 1 applic WEBSITE ADMIN TOPICAL 10/29/17 17:15 11/05/17 17:14 (D50w (Vial) Inj) 50 ml UNSCH PRN IV PUSH 10/29/17 17:15 (SoluCORTEF INJ) 25 mg Q12HR IV PUSH 10/30/17 21:00 11/01/17 08:00 10/31/17 08:12 Oxacillin Sodium 2 gm/Sodium Chloride 100 ml @ 200 mls/hr Q4H IV 10/30/17 11:00 10/31/17 10:19 (Deltasone) 5 mg DAILY PO 11/01/17 09:00 Lines PIV with no evidence of infection Past Medical History COPD Hypothyroidism RA Sjgren's syndrome Atrial fibrillation SSS s/p PPM Anxiety GERD HTN 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 Past Surgical History PPM replacement in 08/2017 Appendectomy Cholecystectomy WAYLON with BSO Bilateral knee replacement Right hip arthroplasty C in 2011 Allergies: Coded Allergies: NSAIDS (Non-Steroidal Anti-Inflamma (Verified Allergy, Severe, Shortness of Breath, 10/27/17) cephalexin (Unverified Allergy, Severe, HIVES, 10/27/17) diclofenac (Unverified Allergy, Severe, Itching, 10/27/17) etodolac (Unverified Allergy, Severe, Itching, 10/27/17) flurbiprofen (Unverified Allergy, Severe, Itching, 10/27/17) ibuprofen (Unverified Allergy, Severe, Itching, 10/27/17) indomethacin (Unverified Allergy, Severe, Itching, 10/27/17) ketoprofen (Unverified Allergy, Severe, Itching, 10/27/17) ketorolac (Unverified Allergy, Severe, Itching, 10/27/17) naproxen (Unverified Allergy, Severe, Itching, 10/27/17) oxaprozin (Unverified Allergy, Severe, Itching, 10/27/17) Uncoded Allergies: ANTIINFLAMATORY (Allergy, Severe, ITCHING, 09/16/14) Objective . Vital Signs Date Time Temp Pulse Resp B/P (MAP) Pulse Ox O2 Delivery O2 Flow Rate FiO2 10/31/17 12:00 85 10/31/17 12:00 97.9 85 23 100/59 (73) 99 10/31/17 10:00 85 10/31/17 08:29 100 Nasal Cannula 2.00 10/31/17 08:00 97.6 90 23 120/59 (79) 93 10/31/17 08:00 90 10/31/17 06:00 59 10/31/17 04:00 98.4 62 21 124/60 (81) 99 10/31/17 04:00 62 10/31/17 02:00 60 10/31/17 00:00 60 10/31/17 00:00 98.7 60 21 113/54 (73) 97 10/30/17 22:00 66 10/30/17 20:00 98.5 98 35 144/70 (94) 98 10/30/17 20:00 98 10/30/17 18:00 84 10/30/17 16:00 65 10/30/17 16:00 97.6 65 28 120/58 (78) 98 10/31/17 10/31/17 11/01/17 15:00 23:00 07:00 Intake Total 100 ml Balance 100 ml IV Total 100 ml . Laboratory Tests Test 10/30/17 11:44 10/31/17 04:05 Blood Urea Nitrogen 21 MG/DL 17 MG/DL Creatinine 0.57 MG/DL 0.49 MG/DL Random Glucose 84 MG/DL 124 MG/DL Calcium Level 8.0 MG/DL 8.0 MG/DL Sodium Level 142 MEQ/L 142 MEQ/L Potassium Level 3.2 MEQ/L 4.1 MEQ/L Chloride Level 110 MEQ/L 109 MEQ/L Carbon Dioxide Level 23.8 MEQ/L 27.9 MEQ/L Anion Gap 8 MEQ/L 5 MEQ/L Estimat Glomerular Filtration Rate 101 ML/MIN 120 ML/MIN Magnesium Level 2.1 MG/DL Microbiology Date/Time Source Procedure Growth Status 10/31/17 04:05 Blood Peripheral Aerobic Blood Culture Pending Received 10/31/17 04:05 Blood Peripheral Anaerobic Blood Culture Pending Received 10/30/17 12:55 Blood Peripheral Aerobic Blood Culture - Preliminary NO GROWTH IN 1 DAY Resulted 10/30/17 12:55 Blood Peripheral Anaerobic Blood Culture - Preliminary NO GROWTH IN 1 DAY Resulted 10/30/17 12:05 Blood Peripheral Aerobic Blood Culture - Preliminary NO GROWTH IN 1 DAY Resulted 10/30/17 12:05 Blood Peripheral Anaerobic Blood Culture - Preliminary NO GROWTH IN 1 DAY Resulted Imaging Last Impressions Chest X-Ray 10/28/17 0600 Signed Impressions: Service Date/Time: October 04:27 - CONCLUSION: Mild left base atelectasis. Zurdo Woodard MD Soft Tissue Ultrasound 10/27/17 0000 Signed Impressions: Service Date/Time: Friday, October 27, 2017 17:45 - CONCLUSION: Small volume of complex fluid in the operative sites in the left chest Zurdo Starr MD Physical Exam GENERAL: Patient is a frail thin, well-developed female, awake and alert, not in respiratory distress. SKIN: Cool and dry. No generalized rash, no ecchymoses and no evidence of embolic lesions. HEAD: Atraumatic. Normocephalic. No temporal wasting, or tenderness. EYES: [place] conjunctiva. No petechia or hemorrhage. Pupils equal, round and reactive to light. Extraocular movements full and intact. No scleral icterus. No injection or drainage. EARS, NOSE AND THROAT: Nose without bleeding or purulent nasal discharge. No sinus tenderness. Moist oral mucosa, she is edentulous. NECK: Trachea midline. Supple and not tender, no meningeal signs CARDIOVASCULAR: Regular rate and rhythm. No murmurs, rubs or gallops heard. Pacemaker site in L upper chest, has some crusting on her incision. RESPIRATORY: Clear to auscultation. Breath sounds equal bilaterally. No rales , wheezing or rhonchi. Decreased breath sounds at the bases. ABDOMEN: Soft, non-tender, nondistended. Bowel sounds present and normoactive. No guarding. No rebound. No organomegaly. EXTREMITIES: No clubbing, cyanosis, or edema. Has deformities in all her fingers C/W her Hx RA. No joint effusion, has good ROM. No calf tenderness. Well perfused and warm. NEUROLOGICAL: Awake and alert. No facial asymmetry. Moves all her extremities. PSYCHIATRIC: Normal affect, calm and cooperative. 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
[2017-10-31] MEDS: PANTOPRAZOLE SODIUM 40 MG VIAL IV PUSH SCH (15:15)
[2017-10-31] MEDS: traMADol HCL 50 MG TAB PO PRN (15:16)
[2017-11-01] VITALS (14 sets, daily range): BP systolic 111–158; BP diastolic 55–82; PULSE 60–65; RESP 20–34; TEMP 97.7–98.7; O2SAT 95–100
[2017-11-01] MEDS: OXACILLIN INJ 2 GM in SODIUM CHLORIDE 0.9% INJ 100 ML IV SCH ×6 (02:17→23:00)
[2017-11-01 05:17] LABS: AUTOMATED NEUTROPHIL # 5.7 TH/MM3 (1.8-7.7); BASOPHIL % 0.1 % (0.0-2.0); EOSINOPHIL % 0.4 % (0.0-4.0); HEMATOCRIT 32.5 % (35.0-46.0); HEMOGLOBIN 10.5 GM/DL (11.6-15.3); LYMPH % 7.7 % (9.0-44.0); LYMPHOCYTE # 0.5 TH/MM3 (1.0-4.8); MEAN CELL VOLUME 79.3 FL (80.0-100.0); MEAN CORPUSCULAR HEMOGLOBIN 25.6 PG (27.0-34.0); MEAN CORPUSCULAR HGB CONC 32.3 % (32.0-36.0); MEAN PLATELET VOLUME 7.1 FL (7.0-11.0); MONO % 4.1 % (0.0-8.0); MONOCYTE # 0.3 TH/MM3 (0-0.9); NEUT % 87.7 % (16.0-70.0); PLATELET COUNT 229 TH/MM3 (150-450); RED CELL DISTRIBUTION WIDTH 15.4 % (11.6-17.2); WHITE BLOOD COUNT 6.5 TH/MM3 (4.0-11.0)
[2017-11-01 05:41] LABS: BICARBONATE 28.2 MEQ/L (21.0-32.0); CALCIUM 8.1 MG/DL (8.5-10.1); CREATININE 0.5 MG/DL (0.50-1.00)
[2017-11-01] MEDS: LEVOTHYROXINE SODIUM 100 MCG TAB PO SCH (06:14)
[2017-11-01] MEDS: INSULIN ASPART SUPPLEMENTAL SCALE SQ SCH ×4 (08:00→20:11)
[2017-11-01] MEDS: DIGOXIN 0.125 MG TAB PO SCH (09:00)
[2017-11-01] MEDS: ASPIRIN EC 81 MG TABEC PO SCH (09:00)
[2017-11-01] MEDS: SODIUM CHLORIDE 0.9% FLUSH 10 ML FLUSH IV FLUSH SCH ×2 (09:15→20:11)
[2017-11-01] MEDS: predniSONE 5 MG TAB PO SCH (09:15)
--- NOTE | 2017-11-01 09:19 | HHI.IDPN ---
Subjective Subjective Remarks Patient is an 87-year-old female, brought into the hospital for further evaluation of fever and confusion. Patient has sick sinus syndrome and had her pacemaker placed originally in 2009. In August she underwent replacement of the generator. The day prior to admission she apparently was noted to have some purulent drainage coming out of her incision. On the day of admission she was very confused and had a fever with some shaking chills. She was brought into the hospital for further evaluation and treatment. In the emergency room her temperature was up to 104. Patient remains confused. There was no mention of any other symptom as far as respiratory complaint, nausea or vomiting. Was no mention of any problem with urination, or any diarrhea. In the ED she had some hypotension, and received normal saline with improvement of her hemodynamics. Her WBC was 11,000 yesterday, and is down to normal. Her temperatures are better. Cardiothoracic surgery has been consulted for explantation of her pacemaker. Infectious disease consultation has been requested to evaluate the patient. Notes reviewed Discussed with RN Daughter at bedside Has one new (+) BC from 10/30 OR plans for November 02 Admission blood culture and wound culture with MSSA Antibiotics Oxacillin Current Medications Medications (Trade) Dose Ordered Sig/Keshawn Route Start Time Stop Time Status Last Admin (Duoneb Neb) 1 ampule Q2HR NEB PRN NEB 10/27/17 15:00 (Tylenol) 650 mg Q4H PRN PO 10/27/17 15:00 10/30/17 19:50 (Zofran Inj) 4 mg Q6H PRN IV 10/27/17 15:00 (Ecotrin Ec) 81 mg DAILY PO 10/28/17 09:00 10/31/17 08:11 (Lanoxin) 0.125 mg DAILY PO 10/28/17 09:00 10/31/17 08:11 (Synthroid) 100 mcg DAILY@0600 PO 10/28/17 06:00 11/01/17 06:14 (Protonix Inj) 40 mg Q24H IV PUSH 10/27/17 15:00 10/31/17 15:15 (NovoLOG SUPPLEMENTAL SCALE) 1 ACHS SLIDING SCALE SQ 10/27/17 17:00 10/31/17 19:55 (Tears Naturale Opth Soln) 1 drop Q4H PRN EACH EYE 10/28/17 08:30 10/28/17 18:45 (NS Flush) 2 ml BID IV FLUSH 10/29/17 21:00 10/31/17 19:54 (NS Flush) 2 ml UNSCH PRN IV FLUSH 10/29/17 17:15 Vancomycin HCl 1000 mg/Sodium Chloride 1,000 ml @ 0 mls/hr WIRE TWISTING MACHINE OPERATOR IRRIGATION 10/29/17 17:15 11/05/17 17:14 Vancomycin HCl 1000 mg/Sodium Chloride 250 ml @ 250 mls/hr WIRE TWISTING MACHINE OPERATOR IV 10/29/17 17:15 11/05/17 17:14 (Hibiclens 4% Top Soln) 1 applic WIRE TWISTING MACHINE OPERATOR TOPICAL 10/29/17 17:15 11/05/17 17:14 (D50w (Vial) Inj) 50 ml UNSCH PRN IV PUSH 10/29/17 17:15 Oxacillin Sodium 2 gm/Sodium Chloride 100 ml @ 200 mls/hr Q4H IV 10/30/17 11:00 11/01/17 06:14 (Deltasone) 5 mg DAILY PO 11/01/17 09:00 (Ultram) 50 mg Q8H PRN PO 10/31/17 14:45 10/31/17 15:16 Lines PIV with no evidence of infection Past Medical History COPD Hypothyroidism RA Sjgren's syndrome Atrial fibrillation SSS s/p PPM Anxiety GERD HTN 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 Past Surgical History PPM replacement in 08/2017 Appendectomy Cholecystectomy WAYLON with BSO Bilateral knee replacement Right hip arthroplasty [facility] in 2011 Allergies: Coded Allergies: NSAIDS (Non-Steroidal Anti-Inflamma (Verified Allergy, Severe, Shortness of Breath, 10/27/17) cephalexin (Unverified Allergy, Severe, HIVES, 10/27/17) diclofenac (Unverified Allergy, Severe, Itching, 10/27/17) etodolac (Unverified Allergy, Severe, Itching, 10/27/17) flurbiprofen (Unverified Allergy, Severe, Itching, 10/27/17) ibuprofen (Unverified Allergy, Severe, Itching, 10/27/17) indomethacin (Unverified Allergy, Severe, Itching, 10/27/17) ketoprofen (Unverified Allergy, Severe, Itching, 10/27/17) ketorolac (Unverified Allergy, Severe, Itching, 10/27/17) naproxen (Unverified Allergy, Severe, Itching, 10/27/17) oxaprozin (Unverified Allergy, Severe, Itching, 10/27/17) Uncoded Allergies: ANTIINFLAMATORY (Allergy, Severe, ITCHING, 09/16/14) Objective . Vital Signs Date Time Temp Pulse Resp B/P (MAP) Pulse Ox O2 Delivery O2 Flow Rate FiO2 11/01/17 06:00 60 11/01/17 04:00 97.9 61 27 149/65 (93) 97 11/01/17 04:00 61 11/01/17 02:00 60 11/01/17 00:00 60 11/01/17 00:00 98.0 60 34 111/55 (73) 96 10/31/17 22:00 60 10/31/17 20:00 94 10/31/17 20:00 97.6 94 22 104/62 (76) 98 10/31/17 19:55 99 Nasal Cannula 2.00 10/31/17 18:00 83 10/31/17 16:16 32 10/31/17 16:00 88 10/31/17 16:00 97.8 88 32 106/73 (84) 98 10/31/17 14:00 87 10/31/17 12:00 85 10/31/17 12:00 97.9 85 23 100/59 (73) 99 10/31/17 10:00 85 . Laboratory Tests Test 11/01/17 03:57 White Blood Count 6.5 TH/MM3 Red Blood Count 4.10 MIL/MM3 Hemoglobin 10.5 GM/DL Hematocrit 32.5 % Mean Corpuscular Volume 79.3 FL Mean Corpuscular Hemoglobin 25.6 PG Mean Corpuscular Hemoglobin Concent 32.3 % Red Cell Distribution Width 15.4 % Platelet Count 229 TH/MM3 Mean Platelet Volume 7.1 FL Neutrophils (%) (Auto) 87.7 % Lymphocytes (%) (Auto) 7.7 % Monocytes (%) (Auto) 4.1 % Eosinophils (%) (Auto) 0.4 % Basophils (%) (Auto) 0.1 % Neutrophils # (Auto) 5.7 TH/MM3 Lymphocytes # (Auto) 0.5 TH/MM3 Monocytes # (Auto) 0.3 TH/MM3 Eosinophils # (Auto) 0.0 TH/MM3 Basophils # (Auto) 0.0 TH/MM3 CBC Comment DIFF FINAL Differential Comment Laboratory Tests Test 10/30/17 11:44 10/31/17 04:05 11/01/17 03:57 Blood Urea Nitrogen 21 MG/DL 17 MG/DL 16 MG/DL Creatinine 0.57 MG/DL 0.49 MG/DL 0.50 MG/DL Random Glucose 84 MG/DL 124 MG/DL 115 MG/DL Calcium Level 8.0 MG/DL 8.0 MG/DL 8.1 MG/DL Sodium Level 142 MEQ/L 142 MEQ/L 144 MEQ/L Potassium Level 3.2 MEQ/L 4.1 MEQ/L 4.4 MEQ/L Chloride Level 110 MEQ/L 109 MEQ/L 107 MEQ/L Carbon Dioxide Level 23.8 MEQ/L 27.9 MEQ/L 28.2 MEQ/L Anion Gap 8 MEQ/L 5 MEQ/L 9 MEQ/L Estimat Glomerular Filtration Rate 101 ML/MIN 120 ML/MIN 117 ML/MIN Magnesium Level 2.1 MG/DL Microbiology Date/Time Source Procedure Growth Status 10/31/17 04:05 Blood Peripheral Aerobic Blood Culture Pending Received 10/31/17 04:05 Blood Peripheral Anaerobic Blood Culture Pending Received 10/30/17 12:55 Blood Peripheral Aerobic Blood Culture - Preliminary Gram Positive Cocci Resulted 10/30/17 12:55 Blood Peripheral Anaerobic Blood Culture - Preliminary NO GROWTH IN 1 DAY Resulted 10/30/17 12:05 Blood Peripheral Aerobic Blood Culture - Preliminary NO GROWTH IN 1 DAY Resulted 10/30/17 12:05 Blood Peripheral Anaerobic Blood Culture - Preliminary NO GROWTH IN 1 DAY Resulted Imaging Last Impressions Chest X-Ray 10/28/17 0600 Signed Impressions: Service Date/Time: October 04:27 - CONCLUSION: Mild left base atelectasis. Zurdo Woodard MD Soft Tissue Ultrasound 10/27/17 0000 Signed Impressions: Service Date/Time: Friday, October 27, 2017 17:45 - CONCLUSION: Small volume of complex fluid in the operative sites in the left chest Zurdo Starr MD Physical Exam GENERAL: Patient is a frail thin, awake and alert, not in respiratory distress. SKIN: Cool and dry. No generalized rash, no ecchymoses and no evidence of embolic lesions. HEAD: Atraumatic. Normocephalic. No temporal wasting, or tenderness. EYES: [place] conjunctiva. No petechia or hemorrhage. Pupils equal, round and reactive to light. Extraocular movements full and intact. No scleral icterus. No injection or drainage. EARS, NOSE AND THROAT: Nose without bleeding or purulent nasal discharge. No sinus tenderness. Moist oral mucosa, she is edentulous. NECK: Trachea midline. Supple and not tender, no meningeal signs CARDIOVASCULAR: Regular rate and rhythm. No murmurs, rubs or gallops heard. Pacemaker site in L upper chest, has some crusting on her incision. RESPIRATORY: Clear to auscultation. Breath sounds equal bilaterally. No rales , wheezing or rhonchi. Decreased breath sounds at the bases. ABDOMEN: Soft, non-tender, nondistended. Bowel sounds present and normoactive. No guarding. No rebound. No organomegaly. EXTREMITIES: No clubbing, cyanosis, or edema. Has deformities in all her fingers C/W her Hx RA. No joint effusion, has good ROM. No calf tenderness. Well perfused and warm. NEUROLOGICAL: Awake and alert. No facial asymmetry. Moves all her extremities. PSYCHIATRIC: Normal affect, calm and cooperative. 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
--- NOTE | 2017-11-01 09:26 | MB ---
cc: Cherry Wiggins MD DATE: 10/27/2017 REASON FOR CONSULTATION: Infected device. HISTORY OF PRESENT ILLNESS: Mrs. Kay is an 87-year-old female with history of atrial fibrillation ____ pacemaker implanted ____, generator replacement in 08/2017 admitted due to fever, hypotension and secretion from the device side. The patient was admitted. Antibiotic was initiated. I was consulted for evaluation and management. The chart was reviewed. The patient was evaluated. Most of the information obtained from medical record. ALLERGIES: CEPHALEXIN, DICLOFENAC, ETODOLAC, IBUPROFEN, INDOCIN, KETOROLAC, NAPROXEN, OXAPROZIN. SOCIAL HISTORY: Negative for smoking and drinking. FAMILY HISTORY: Noncontributory to her current medical condition. MEDICATIONS: She is on vancomycin. She is on aspirin, digoxin, insulin. REVIEW OF SYSTEMS: The patient communication. PHYSICAL EXAMINATION: GENERAL: Alert. I am not sure she is totally oriented. VITAL SIGNS: Blood pressure on evaluation 87/47, pulse 68, respiratory rate 20. LUNGS: Good air entry. CARDIOVASCULAR: S1, S2. Regular. SKIN: Left infraclavicular area with minimal secretion. ABDOMEN: Soft, no mass or bruit. EXTREMITIES: No edema. Electrocardiogram a pacing sensing. Diffuse ST changes. LABORATORY DATA: Hemoglobin in 11.6, white blood cell 11.8. Potassium is 4.0, creatinine 0.91. INR is 1.1. ASSESSMENT AND RECOMMENDATIONS: Mrs. Kay has possible device infection. She is on antibiotics. The device will need to be removed. Case extensively discussed with her daughter. The risks, the nature and the benefits of the procedure were clearly said to her and the patient. Risk include infection, pneumothorax, stroke and even . They understand and agree to proceed. Case discussed with Dr. Davila and Dr. Jamison will be consulted. Cherry Wiggins MD HS/rt , 07:23 PM , 08:13 PM
--- NOTE | 2017-11-01 14:26 | PD.CAR.PN ---
CVT Progress Note Subjective/Hospital Course: An 87-year-old female, patient of Dr. Rick Zarate, Dr. Calvin Fisher, and Dr. Wiggins, history of symptomatic bradycardia, previous pacer that had a generator change out on 09/01/[address] Wiggins, Biotronik device. Per the notes, the daughter had reported increased confusion from her baseline and also some pus draining from the pacemaker site prior to admission. Fever was about 101. They normally are able to get her up in a wheelchair, but they were unable to lift her, so they called in Evac. Temperature in the ED was 104.2. Blood pressure was also very low with systolic blood pressures in the 80s. She did receive IV fluids. The culture from the pacemaker site showed Staph aureus in the wound culture and also the blood cultures x 4 bottles were positive for Staph aureus. She is currently on vancomycin and Zosyn. We were consulted by Dr. Wiggins for device removal. 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 She has just had a recent generator pacemaker change out 08/2017, Biotronik device. Dementia 11/01 no new complaints for surgery in am to remove pacer device and leads Objective: GENERAL: pleasant forgetful SKIN: Warm and dry. left upper chest pacer site with erythema, scab in place HEAD: Normocephalic. EYES: No scleral icterus. No injection or drainage. NECK: Supple, trachea midline. No JVD or lymphadenopathy. CARDIOVASCULAR: Regular rate and rhythm without murmurs, gallops, or rubs. RESPIRATORY: Breath sounds equal bilaterally. No accessory muscle use. diminished in bases GASTROINTESTINAL: Abdomen soft, non-tender, nondistended. MUSCULOSKELETAL: No cyanosis, or edema. significant swan deformity of both hands BACK: Nontender without obvious deformity. No CVA tenderness. Vital Signs Date Time Temp Pulse Resp B/P (MAP) Pulse Ox O2 Delivery O2 Flow Rate FiO2 11/01/17 12:00 98.5 60 21 142/64 (90) 100 11/01/17 12:00 60 11/01/17 10:00 60 11/01/17 09:50 100 Nasal Cannula 2.00 11/01/17 08:00 60 11/01/17 08:00 98.0 60 20 158/67 (97) 95 11/01/17 06:00 60 11/01/17 04:00 97.9 61 27 149/65 (93) 97 11/01/17 04:00 61 11/01/17 02:00 60 11/01/17 00:00 60 11/01/17 00:00 98.0 60 34 111/55 (73) 96 10/31/17 22:00 60 10/31/17 20:00 94 10/31/17 20:00 97.6 94 22 104/62 (76) 98 10/31/17 19:55 99 Nasal Cannula 2.00 10/31/17 18:00 83 10/31/17 16:16 32 10/31/17 16:00 88 10/31/17 16:00 97.8 88 32 106/73 (84) 98 Labs: Laboratory Tests Test 11/01/17 03:57 White Blood Count 6.5 TH/MM3 (4.0-11.0) Red Blood Count 4.10 MIL/MM3 (4.00-5.30) Hemoglobin 10.5 GM/DL (11.6-15.3) Hematocrit 32.5 % (35.0-46.0) Mean Corpuscular Volume 79.3 FL (80.0-100.0) Mean Corpuscular Hemoglobin 25.6 PG (27.0-34.0) Mean Corpuscular Hemoglobin Concent 32.3 % (32.0-36.0) Red Cell Distribution Width 15.4 % (11.6-17.2) Platelet Count 229 TH/MM3 (150-450) Mean Platelet Volume 7.1 FL (7.0-11.0) Neutrophils (%) (Auto) 87.7 % (16.0-70.0) Lymphocytes (%) (Auto) 7.7 % (9.0-44.0) Monocytes (%) (Auto) 4.1 % (0.0-8.0) Eosinophils (%) (Auto) 0.4 % (0.0-4.0) Basophils (%) (Auto) 0.1 % (0.0-2.0) Neutrophils # (Auto) 5.7 TH/MM3 (1.8-7.7) Lymphocytes # (Auto) 0.5 TH/MM3 (1.0-4.8) Monocytes # (Auto) 0.3 TH/MM3 (0-0.9) Eosinophils # (Auto) 0.0 TH/MM3 (0-0.4) Basophils # (Auto) 0.0 TH/MM3 (0-0.2) CBC Comment DIFF FINAL Differential Comment Prothrombin Time 10.0 SEC (9.8-11.6) Prothromb Time International Ratio 1.0 RATIO Blood Urea Nitrogen 16 MG/DL (7-18) Creatinine 0.50 MG/DL (0.50-1.00) Random Glucose 115 MG/DL (74-106) Calcium Level 8.1 MG/DL (8.5-10.1) Sodium Level 144 MEQ/L (136-145) Potassium Level 4.4 MEQ/L (3.5-5.1) Chloride Level 107 MEQ/L (98-107) Carbon Dioxide Level 28.2 MEQ/L (21.0-32.0) Anion Gap 9 MEQ/L (5-15) Estimat Glomerular Filtration Rate 117 ML/MIN (>89) Result Diagram: 11/01/17 0357 11/01/17 0357 (1) Pacemaker infection Plan: for surgery in am (2) Sjogren's disease (3) COPD (chronic obstructive pulmonary disease) (4) Atrial fibrillation Meagan Pichardo Nov 01, 2017 14:26
[2017-11-01] MEDS: PANTOPRAZOLE SODIUM 40 MG VIAL IV PUSH SCH (15:45)
--- NOTE | 2017-11-01 17:35 | HHI.PR ---
Subjective Remarks No new complaints. Objective Vitals Vital Signs Date Time Temp Pulse Resp B/P (MAP) Pulse Ox O2 Delivery O2 Flow Rate FiO2 11/01/17 16:00 60 11/01/17 14:00 61 11/01/17 12:00 98.5 60 21 142/64 (90) 100 11/01/17 12:00 60 11/01/17 10:00 60 11/01/17 09:50 100 Nasal Cannula 2.00 11/01/17 08:00 60 11/01/17 08:00 98.0 60 20 158/67 (97) 95 11/01/17 06:00 60 11/01/17 04:00 97.9 61 27 149/65 (93) 97 11/01/17 04:00 61 11/01/17 02:00 60 11/01/17 00:00 60 11/01/17 00:00 98.0 60 34 111/55 (73) 96 10/31/17 22:00 60 10/31/17 20:00 94 10/31/17 20:00 97.6 94 22 104/62 (76) 98 10/31/17 19:55 99 Nasal Cannula 2.00 10/31/17 18:00 83 11/01/17 11/01/17 11/02/17 15:00 23:00 07:00 Intake Total 100 ml 100 ml Balance 100 ml 100 ml IV Total 100 ml 100 ml Result Diagram: 11/01/17 0357 11/01/17 0357 Imaging Last Impressions Chest X-Ray 11/02/17 0000 Signed Impressions: Service Date/Time: Thursday, November 02, 2017 13:19 - CONCLUSION: Mild pulmonary edema. Left lower lobe atelectasis. Small left pleural effusion. No evidence of pneumothorax. Dawson Turner MD Soft Tissue Ultrasound 10/27/17 0000 Signed Impressions: Service Date/Time: Friday, October 27, 2017 17:45 - CONCLUSION: Small volume of complex fluid in the operative sites in the left chest Zurdo Starr MD Last Impressions Chest X-Ray 10/27/17 1031 Signed Impressions: Service Date/Time: Friday, October 27, 2017 10:43 - CONCLUSION: Negative for infiltrate or failure. Jose Manuel Bailey MD FACR Objective Remarks GENERAL: This is a well-nourished, well-developed patient, in no apparent distress. CARDIOVASCULAR: Regular rate and rhythm without murmurs, gallops, or rubs. RESPIRATORY: Clear to auscultation. Breath sounds equal bilaterally. No wheezes , rales, or rhonchi. GASTROINTESTINAL: Abdomen soft, non-tender, nondistended. Normal active bowel sounds MUSCULOSKELETAL: Extremities without clubbing, cyanosis, or edema. NEURO: Alert & Oriented x4 to person, place, time, situation. Moves all ext x4 skin: induration noted over pacemaker, LUE is edematous. A/P Problem List: (1) Sepsis ICD Codes: A41.9 - Sepsis, unspecified organism Status: Acute Plan: Sepsis Pacemaker site infection MSSA pm infection/sepsis - 87 y/o WF with RA, hx of atrial fibrillation and SSS s/p PPM, hypothyroidism, COPD, and Sjogren's syndrome. Pt recently had PPM replacement in 08/[address] Wiggins. - Her daughter reports that she noticed some pus drainage from her PPM incision x 1 day. Pt was more confused and had a fever of 101 by temporal thermometer and shaking chills. Family was unable to lift the patient to the wheelchair and so an ambulance was called. - In the ED her temp was 104.2. Her BP has been quite low in the ED with sbp's 70s - A culture of the pus coming from the PPM incision site was taken in the ED prior to abx being given. Pt was given 2.5 L NS bolus in ED. stop ivf. tolerating diet. Stress dose steroids were started for persist hypotension. bp stable. continue wean back to baseline dose stopped zosyn 10/29.. on vanco but stopped 10/30. oxacillin started on 10/30 and vanco stopped....(pt allergic to cephalexin)..consulted ID Dr Wiggins consulted. u/s showed complex fluid collection at the pm site. - CTS to remove PPM and leads 11/02 - survellience blood cx pending Pt consulted dvt prophylaxis Atrial fibrillation Hx of SSS s/p PPM - Hold Cardizem as BP is too low to continue - Cont. Digoxin - Telemetry COPD - Duonebs PRN Hypothyroidism - Cont. home meds Sjogrens syndrome RA - Pt chronically on Prednisone 5mg po daily, this will be held for now - Give stress steroids and taper (2) Pacemaker infection ICD Codes: T82.7XXA - Infection and inflammatory reaction due to other cardiac and vascular devices, implants and grafts, initial encounter Status: Acute (3) Atrial fibrillation ICD Codes: I48.91 - Atrial fibrillation Status: Chronic (4) COPD (chronic obstructive pulmonary disease) ICD Codes: J44.9 - Chronic obstructive pulmonary disease, unspecified Status: Chronic (5) Hypothyroidism ICD Codes: E03.9 - Hypothyroidism Status: Chronic (6) Anxiety ICD Codes: F41.9 - Anxiety Status: Chronic (7) Rheumatoid arthritis ICD Codes: M06.9 - Rheumatoid arthritis Status: Chronic (8) Sjogren's disease ICD Codes: M35.00 - Sjogren's disease Status: Chronic Toñito Duncan DO Nov 01, 2017 17:35
[2017-11-01] MEDS ORDERED: CHLORHEXIDINE GLUCONATE 2 % 1 PACK (2 CLOTHS)(extra cloths) TOPICAL PRN (19:15)
[2017-11-01] MEDS ORDERED: SODIUM CHLORID 0.9% 500 ML IV PRN (22:15)
[2017-11-01] MEDS ORDERED: CHLORHEXIDINE GLUCONATE 2 % 1 PACK (2 CLOTHS) TOPICAL PRN (22:15)
[2017-11-01] MEDS ORDERED: POVIDONE IODINE 5% (ANTISEPSIS KIT) 4 APPLICATIONS EACH NARE PRN (22:15)
[2017-11-01] MEDS ORDERED: LACTATED RINGER'S 1000 ML IV PRN (22:15)
[2017-11-02] VITALS (22 sets, daily range): BP systolic 71–168; BP diastolic 47–71; PULSE 65–127; RESP 22–39; TEMP 97.2–98.1; O2SAT 91–100
[2017-11-02] MEDS: OXACILLIN INJ 2 GM in SODIUM CHLORIDE 0.9% INJ 100 ML IV SCH ×6 (03:00→23:00)
[2017-11-02] MEDS: CHLORHEXIDINE GLUCONATE 2 % 1 PACK (2 CLOTHS)(taper/protocol) TOPICAL SCH (04:00)
[2017-11-02] MEDS: LEVOTHYROXINE SODIUM 100 MCG TAB PO SCH (05:22)
[2017-11-02] MEDS: INSULIN ASPART SUPPLEMENTAL SCALE SQ SCH ×4 (08:00→20:05)
[2017-11-02] MEDS: predniSONE 5 MG TAB PO SCH (08:56)
[2017-11-02] MEDS: DIGOXIN 0.125 MG TAB PO SCH (08:57)
[2017-11-02] MEDS: ASPIRIN EC 81 MG TABEC PO SCH (08:57)
[2017-11-02] MEDS: SODIUM CHLORIDE 0.9% FLUSH 10 ML FLUSH IV FLUSH SCH ×2 (09:00→20:05)
[2017-11-02] MEDS ORDERED: HEPARIN SODIUM - SQ 10,000 UNITS/ML VIAL ONE ×2 (09:29→09:47)
[2017-11-02] MEDS ORDERED: BUPIVACAINE HCL PF 0.5% 30 ML VIAL ONE (09:29)
[2017-11-02] MEDS ORDERED: VANCOMYCIN HCL 1000 MG VIAL ONE ×2 (09:32→10:08)
[2017-11-02] MEDS ORDERED: LIDOCAINE HCL 1% PF 30 ML VIAL ONE (11:03)
[2017-11-02] MEDS: VANCOMYCIN INJ 1,000 MG in SODIUM CHLORIDE 0.9% IRR BTL 1,000 ML IRRIGATION SCH ×2 (11:53→12:06)
--- NOTE | 2017-11-02 11:56 | EKG ---
Date Performed: 11/02/2017 Time Performed: 09:51:02 PTAGE: 87 years EKG: Sinus rhythm Incomplete RBBB Abnormal ECG NO PREVIOUS TRACING DOCTOR: Julio César Oquendo Interpretating Date/Time 11/02/2017 11:54:31
[2017-11-02] MEDS ORDERED: SODIUM CHLORID 0.9% 500 ML INJ 500 ML IV ONE (12:00)
[2017-11-02] MEDS ORDERED: GLYCOPYRROLATE 1 MG/5 ML SYRINGE IV PUSH ONE (12:00)
[2017-11-02] MEDS ORDERED: PHENYLEPH/NS 1000 MCG/10 ML SYR IV ONE (12:00)
[2017-11-02] MEDS ORDERED: NEOSTIGMINE 5 MG/5 ML SYRINGE IV PUSH ONE (12:00)
[2017-11-02] MEDS ORDERED: ROCURONIUM INJ 50 MG/5 ML SYRINGE IV PUSH ONE (12:00)
[2017-11-02] MEDS ORDERED: LIDOCAINE HCL 1% PF 5 ML SYRINGE OTHER ONE (12:00)
[2017-11-02] MEDS ORDERED: ePHEDrine/NS 25 MG/5 ML SYRINGE IV ONE (12:00)
[2017-11-02] MEDS ORDERED: PROPOFOL 200 MG/20 ML AMP IV ONE (12:00)
[2017-11-02] MEDS ORDERED: METOPROLOL TARTRATE 5 MG/5 ML VIAL IV ONE (12:00)
[2017-11-02] MEDS ORDERED: ONDANSETRON HCL 4 MG/2 ML VIAL IV ONE (12:00)
[2017-11-02] MEDS ORDERED: ESMOLOL HCL 100 MG/10 ML VIAL IV ONE (12:00)
[2017-11-02] MEDS ORDERED: NORMOSOL R INJ 1,000 ML IV ONE (12:00)
--- NOTE | 2017-11-02 12:05 | HHI.IDPN ---
Subjective Subjective Remarks Patient is an 87-year-old female, brought into the hospital for further evaluation of fever and confusion. Patient has sick sinus syndrome and had her pacemaker placed originally in 2009. In August she underwent replacement of the generator. The day prior to admission she apparently was noted to have some purulent drainage coming out of her incision. On the day of admission she was very confused and had a fever with some shaking chills. She was brought into the hospital for further evaluation and treatment. In the emergency room her temperature was up to 104. Patient remains confused. There was no mention of any other symptom as far as respiratory complaint, nausea or vomiting. Was no mention of any problem with urination, or any diarrhea. In the ED she had some hypotension, and received normal saline with improvement of her hemodynamics. Her WBC was 11,000 yesterday, and is down to normal. Her temperatures are better. Cardiothoracic surgery has been consulted for explantation of her pacemaker. Infectious disease consultation has been requested to evaluate the patient. Notes reviewed OR for today Has one new (+) BC from 10/30 Admission blood culture and wound culture with MSSA Antibiotics Oxacillin Current Medications Medications (Trade) Dose Ordered Sig/Keshawn Route Start Time Stop Time Status Last Admin (Duoneb Neb) 1 ampule Q2HR NEB PRN NEB 10/27/17 15:00 (Tylenol) 650 mg Q4H PRN PO 10/27/17 15:00 10/30/17 19:50 (Zofran Inj) 4 mg Q6H PRN IV 10/27/17 15:00 (Ecotrin Ec) 81 mg DAILY PO 10/28/17 09:00 11/02/17 08:57 (Lanoxin) 0.125 mg DAILY PO 10/28/17 09:00 11/02/17 08:57 (Synthroid) 100 mcg DAILY@0600 PO 10/28/17 06:00 11/02/17 05:22 (Protonix Inj) 40 mg Q24H IV PUSH 10/27/17 15:00 11/01/17 15:45 (NovoLOG SUPPLEMENTAL SCALE) 1 ACHS SLIDING SCALE SQ 10/27/17 17:00 11/01/17 20:11 (Tears Naturale Opth Soln) 1 drop Q4H PRN EACH EYE 10/28/17 08:30 10/28/17 18:45 (NS Flush) 2 ml BID IV FLUSH 10/29/17 21:00 11/02/17 09:00 (NS Flush) 2 ml UNSCH PRN IV FLUSH 10/29/17 17:15 Vancomycin HCl 1000 mg/Sodium Chloride 1,000 ml @ 0 mls/hr [employer] IRRIGATION 10/29/17 17:15 11/05/17 17:14 11/02/17 11:53 Vancomycin HCl 1000 mg/Sodium Chloride 250 ml @ 250 mls/hr [employer] IV 10/29/17 17:15 11/05/17 17:14 (Hibiclens 4% Top Soln) 1 applic [employer] TOPICAL 10/29/17 17:15 11/05/17 17:14 (D50w (Vial) Inj) 50 ml UNSCH PRN IV PUSH 10/29/17 17:15 Oxacillin Sodium 2 gm/Sodium Chloride 100 ml @ 200 mls/hr Q4H IV 10/30/17 11:00 11/02/17 11:50 (Deltasone) 5 mg DAILY PO 11/01/17 09:00 11/02/17 08:56 (Ultram) 50 mg Q8H PRN PO 10/31/17 14:45 10/31/17 15:16 Miscellaneous Information Patient in critical care unit? Ass... [id number] .XX 11/01/17 19:15 11/01/17 19:15 (Chlorhexidine 2% Cloth) 3 pack DAILY@04 TOPICAL 11/02/17 04:00 11/06/17 04:01 11/02/17 04:00 (Chlorhexidine 2% Cloth) 3 pack UNSCH PRN TOPICAL 11/01/17 19:15 11/06/17 19:07 Lactated Ringer's 1,000 ml @ 30 mls/hr Q24H PRN IV 11/01/17 22:15 11/04/17 22:14 Sodium Chloride 500 ml @ 30 mls/hr [id number] PRN IV 11/01/17 22:15 11/04/17 22:14 (Betadine 5% Antisepsis Kit) 1 applic [employer] PRN EACH NARE 11/01/17 22:15 11/04/17 22:14 (Chlorhexidine 2% Cloth) 3 pack [employer] PRN TOPICAL 11/01/17 22:15 11/04/17 22:14 Lines PIV with no evidence of infection Past Medical History COPD Hypothyroidism RA Sjgren's syndrome Atrial fibrillation SSS s/p PPM Anxiety GERD HTN 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 Past Surgical History PPM replacement in 08/2017 Appendectomy Cholecystectomy WAYLON with BSO Bilateral knee replacement Right hip arthroplasty [facility] in 2011 Allergies: Coded Allergies: NSAIDS (Non-Steroidal Anti-Inflamma (Verified Allergy, Severe, Shortness of Breath, 10/27/17) cephalexin (Unverified Allergy, Severe, HIVES, 10/27/17) diclofenac (Unverified Allergy, Severe, Itching, 10/27/17) etodolac (Unverified Allergy, Severe, Itching, 10/27/17) flurbiprofen (Unverified Allergy, Severe, Itching, 10/27/17) ibuprofen (Unverified Allergy, Severe, Itching, 10/27/17) indomethacin (Unverified Allergy, Severe, Itching, 10/27/17) ketoprofen (Unverified Allergy, Severe, Itching, 10/27/17) ketorolac (Unverified Allergy, Severe, Itching, 10/27/17) naproxen (Unverified Allergy, Severe, Itching, 10/27/17) oxaprozin (Unverified Allergy, Severe, Itching, 10/27/17) Uncoded Allergies: ANTIINFLAMATORY (Allergy, Severe, ITCHING, 09/16/14) Objective . Vital Signs Date Time Temp Pulse Resp B/P (MAP) Pulse Ox O2 Delivery O2 Flow Rate FiO2 11/02/17 10:00 76 11/02/17 08:00 87 11/02/17 08:00 97.2 70 25 162/70 (100) 100 11/02/17 06:00 127 11/02/17 04:00 66 11/02/17 04:00 97.8 69 26 160/71 (100) 98 11/02/17 02:00 65 11/02/17 00:00 97.8 71 22 168/70 (102) 98 11/02/17 00:00 66 11/01/17 22:37 98 Nasal Cannula 2.00 11/01/17 22:00 60 11/01/17 20:00 60 11/01/17 20:00 98.7 65 27 136/82 (100) 99 11/01/17 18:00 62 11/01/17 16:00 97.7 63 24 123/59 (80) 98 11/01/17 16:00 60 11/01/17 14:00 61 . Laboratory Tests Test 11/01/17 03:57 White Blood Count 6.5 TH/MM3 Red Blood Count 4.10 MIL/MM3 Hemoglobin 10.5 GM/DL Hematocrit 32.5 % Mean Corpuscular Volume 79.3 FL Mean Corpuscular Hemoglobin 25.6 PG Mean Corpuscular Hemoglobin Concent 32.3 % Red Cell Distribution Width 15.4 % Platelet Count 229 TH/MM3 Mean Platelet Volume 7.1 FL Neutrophils (%) (Auto) 87.7 % Lymphocytes (%) (Auto) 7.7 % Monocytes (%) (Auto) 4.1 % Eosinophils (%) (Auto) 0.4 % Basophils (%) (Auto) 0.1 % Neutrophils # (Auto) 5.7 TH/MM3 Lymphocytes # (Auto) 0.5 TH/MM3 Monocytes # (Auto) 0.3 TH/MM3 Eosinophils # (Auto) 0.0 TH/MM3 Basophils # (Auto) 0.0 TH/MM3 CBC Comment DIFF FINAL Differential Comment Laboratory Tests Test 11/01/17 03:57 Blood Urea Nitrogen 16 MG/DL Creatinine 0.50 MG/DL Random Glucose 115 MG/DL Calcium Level 8.1 MG/DL Sodium Level 144 MEQ/L Potassium Level 4.4 MEQ/L Chloride Level 107 MEQ/L Carbon Dioxide Level 28.2 MEQ/L Anion Gap 9 MEQ/L Estimat Glomerular Filtration Rate 117 ML/MIN Microbiology Date/Time Source Procedure Growth Status 11/01/17 10:29 Blood Peripheral Aerobic Blood Culture - Preliminary NO GROWTH IN 1 DAY Resulted 11/01/17 10:29 Blood Peripheral Anaerobic Blood Culture - Preliminary NO GROWTH IN 1 DAY Resulted 10/31/17 04:05 Blood Peripheral Aerobic Blood Culture - Preliminary NO GROWTH IN 2 DAYS Resulted 10/31/17 04:05 Blood Peripheral Anaerobic Blood Culture - Preliminary NO GROWTH IN 2 DAYS Resulted 10/30/17 12:55 Blood Peripheral Aerobic Blood Culture - Final Staphylococcus Aureus Resulted 10/30/17 12:55 Blood Peripheral Anaerobic Blood Culture - Preliminary NO GROWTH IN 3 DAYS Resulted 10/30/17 12:05 Blood Peripheral Aerobic Blood Culture - Preliminary NO GROWTH IN 3 DAYS Resulted 4/21/18 12:05 Blood Peripheral Anaerobic Blood Culture - Preliminary NO GROWTH IN 3 DAYS Resulted Imaging Last Impressions Chest X-Ray 10/28/17 0600 Signed Impressions: Service Date/Time: October 04:27 - CONCLUSION: Mild left base atelectasis. Zurdo Woodard MD Soft Tissue Ultrasound 10/27/17 0000 Signed Impressions: Service Date/Time: Friday, October 27, 2017 17:45 - CONCLUSION: Small volume of complex fluid in the operative sites in the left chest Zurdo Starr MD Physical Exam GENERAL: Patient is a frail thin, awake and alert, not in respiratory distress. SKIN: Cool and dry. No generalized rash, no ecchymoses and no evidence of embolic lesions. HEAD: Atraumatic. Normocephalic. No temporal wasting, or tenderness. EYES: [place] conjunctiva. No petechia or hemorrhage. Pupils equal, round and reactive to light. Extraocular movements full and intact. No scleral icterus. No injection or drainage. EARS, NOSE AND THROAT: Nose without bleeding or purulent nasal discharge. No sinus tenderness. Moist oral mucosa, she is edentulous. NECK: Trachea midline. Supple and not tender, no meningeal signs CARDIOVASCULAR: Regular rate and rhythm. No murmurs, rubs or gallops heard. Pacemaker site in L upper chest, has some crusting on her incision. RESPIRATORY: Clear to auscultation. Breath sounds equal bilaterally. No rales , wheezing or rhonchi. Decreased breath sounds at the bases. ABDOMEN: Soft, non-tender, nondistended. Bowel sounds present and normoactive. No guarding. No rebound. No organomegaly. EXTREMITIES: No clubbing, cyanosis, or edema. Has deformities in all her fingers C/W her Hx RA. No joint effusion, has good ROM. No calf tenderness. Well perfused and warm. NEUROLOGICAL: Awake and alert. No facial asymmetry. Moves all her extremities. PSYCHIATRIC: Normal affect, calm and cooperative. Confused LINE: No evidence of infection Assessment & Plan Remarks IMPRESSION MSSA sepsis, due to infected pacemaker Pacemaker infection SSS, S/P pacemaker 2009, exchange Aug 2017 Hx RA and Sjogren Encephalopathy due to sepsis RECOMMENDATION Follow cultures IV Oxacillin (she has tolerated 3 days of IV Zosyn) CTS for removal of pacer and leads today Patient per report is pacer dependent She will need a long course of IV Abx - will determine course once work-up is completed Monitor clinical progress Repeat blood culture after removal of the pacemaker Spoke with daughter Edwige Schuler MD Nov 02, 2017 12:05
[2017-11-02] MEDS ORDERED: MAGNESIUM HYDROXIDE SUSP 30 ML CUP PO PRN (12:30)
[2017-11-02] MEDS ORDERED: SODIUM CHLORIDE 0.9% FLUSH 10 ML FLUSH IV FLUSH PRN (12:30)
--- NOTE | 2017-11-02 12:32 | PD.OP ---
cc: Kaitlin Bass MD; Cherry Wiggins MD Operative Report Date of Surgery: Nov 02, 2017 Preoperative Diagnosis: (1) Pacemaker infection (2) Sepsis Postoperative Diagnosis: same Procedure: Pacemaker removal and lead extraction Capsulectomy Fluoroscopy Anesthesia: Dr. Rhoades Surgeon: Kaitlin Bass Business Department Chair(s): Dominique Prakash, HERMNA Operation and Findings: The patient was prepped and draped in the usual manner. A time out was performed. The prior pacemaker incision was opened sharply and electrocautery was used to isolate the lead and enter the pocket. Pocket cultures were obtained. The pulse generator was removed, and the leads were disconnected. The leads were completely isolated to its entry point toward the subclavian vein. A stylet was placed in the lead, and the lead was unscrewed. The same procedure was used to remove the other lead which also was extracted without difficulty. The lead came free with gentle traction and was easily removed in its entirety. Transthoracic echo was used to confirm the absence of pericardial effusion. The capsule was excised using electrocautery and sent to pathology. A 10 Colin drain was placed and secured to the skin with a 4-0 nylon suture. The wound was irrigated with vancomycin solution and checked for hemostasis. The wound was closed in 2 layers and a dressing applied. Patient was transported to PACU in stable condition. Kaitlin Bsas MD Nov 02, 2017 12:32
[2017-11-02] MEDS ORDERED: DILTIAZEM HCL 25 MG/5 ML VIAL ONE (12:43)
[2017-11-02] MEDS ORDERED: SODIUM CHLORIDE 0.9% INJ 100 ML ONE (13:23)
[2017-11-02] MEDS ORDERED: DILTIAZEM IV PRN (13:42)
[2017-11-02] MEDS ORDERED: SODIUM CHLORIDE 0.9% IV PRN (13:42)
[2017-11-02] MEDS ORDERED: DILTIAZEM HCL 25 MG/5 ML (Bolus) IV PUSH ONE (13:42)
--- NOTE | 2017-11-02 13:45 | RADRPT ---
EXAM DATE/TIME: 11/02/2017 13:19 [facility] COMPARISON: CHEST SINGLE AP, October 28, 2017, 4:27. INDICATIONS : Post op pacemaker removal. Evaluate for pneumothorax. MEDICAL HISTORY : Congestive heart failure. Hypertension. Chronic obstructive pulmonary disease. Thyroid disease. Afib. Rheumatoid arthritis. Osteoporosis. SURGICAL HISTORY : Cholecystectomy. Appendectomy. Hysterectomy. Pacemaker recently replaced. Bilateral cataract removal. Bilateral toe surgery. Knee replacements. Hip replacement. Wrist fracture repair. ENCOUNTER: Initial ACUITY: 1 day PAIN SCORE: 4/10 LOCATION: Left chest FINDINGS: Single AP view the chest. Mild hazy pulmonary opacity bilaterally indicating mild pulmonary edema. Le ft lower lobe atelectasis again seen. Smaller pleural effusion. No evidence of pneumothorax. CONCLUSION: Mild pulmonary edema. Left lower lobe atelectasis. Small left pleural effusion. No evidence of pneumo thorax. Dawson Turner MD on November 02, 2017 at 13:39 Board Certified Radiologist. This report was verified electronically.
[2017-11-02] MEDS: PANTOPRAZOLE SODIUM 40 MG VIAL IV PUSH SCH (15:00)
[2017-11-02] MEDS ORDERED: SODIUM CHLOR 0.9% 250 ML INJ 250 ML IV ONE (17:30)
--- NOTE | 2017-11-02 23:48 | PD.CONS ---
[facility] Service Critical Care Medicine Consult Requested By Primary Care Physician Rick Zarate MD History of Present Illness 87-year-old female, admitted for evaluation of fever and confusion. Patient has sick sinus syndrome and had her pacemaker placed initially in 2009. In August this year she underwent replacement of the generator. The day prior to admission she apparently was noted to have some purulent drainage coming out of her incision site. On the day of admission she was very confused and had a fever with some shaking chills. In the emergency room her temperature was up to 104. In the ED she had some hypotension, and received normal saline with improvement of her hemodynamics. Cardiothoracic surgery has been consulted and the patient underwent explantation of her pacemaker today, November 02, 2017. Postprocedure she became borderline hypotensive, also rapid A. fib with RVR and was admitted to the ICU. Review of Systems Constitutional: COMPLAINS OF: Diaphoretic episodes, Fatigue, Fever, Chills, DENIES: Weight gain, Weight loss, Dizziness, Change in appetite, Night Sweats Endocrine: DENIES: Abnorml menstrual pattern, Heat/cold intolerance, Polydipsia , Polyuria, Polyphagia Eyes: DENIES: Blurred vision, Diplopia, Eye inflammation, Eye pain, Vision loss , Photosensitivity, Double Vision Ears, nose, mouth, throat: DENIES: Tinnitus, Hearing loss, Vertigo, Nasal discharge, Oral lesions, Throat pain, Hoarseness, Ear Pain, Running Nose, Epistaxis, Sinus Pain, Toothache, Odynophagia Respiratory: DENIES: Apneas, Cough, Snoring, Wheezing, Hemoptysis, Sputum production, Shortness of breath Cardiovascular: DENIES: Chest pain, Palpitations, Syncope, Dyspnea on Exertion , PND, Lower Extremity Edema, Orthopnea, Claudication Gastrointestinal: DENIES: Abdominal pain, Black stools, Bloody stools, Constipation, Diarrhea, Nausea, Vomiting, Difficulty Swallowing, Anorexia Genitourinary: DENIES: Abnormal vaginal bleeding, Dysmenorrhea, Dyspareunia, Sexual dysfunction, Urinary frequency, Urinary incontinence, Urgency, Hematuria , Dysuria, Nocturia, Vaginal discharge Musculoskeletal: DENIES: Joint pain, Muscle aches, Stiffness, Joint Swelling, Back pain, Neck pain Integumentary: DENIES: Abnormal pigmentation, Pruritus, Rash, Nail changes, Breast masses, Breast skin changes, Nipple discharge Hematologic/lymphatic: DENIES: Bruising, Lymphadenopathy Immunologic/allergic: DENIES: Eczema, Urticaria Neurologic: DENIES: Abnormal gait, Headache, Localized weakness, Paresthesias, Seizures, Speech Problems, Tremor, Poor Balance Psychiatric: DENIES: Anxiety, Confusion, Mood changes, Depression, Hallucinations, Agitation, Suicidal Ideation, Homicidal Ideation, Delusions Past Family Social History Allergies: Coded Allergies: NSAIDS (Non-Steroidal Anti-Inflamma (Verified Allergy, Severe, Shortness of Breath, 10/27/17) cephalexin (Unverified Allergy, Severe, HIVES, 10/27/17) diclofenac (Unverified Allergy, Severe, Itching, 10/27/17) etodolac (Unverified Allergy, Severe, Itching, 10/27/17) flurbiprofen (Unverified Allergy, Severe, Itching, 10/27/17) ibuprofen (Unverified Allergy, Severe, Itching, 10/27/17) indomethacin (Unverified Allergy, Severe, Itching, 10/27/17) ketoprofen (Unverified Allergy, Severe, Itching, 10/27/17) ketorolac (Unverified Allergy, Severe, Itching, 10/27/17) naproxen (Unverified Allergy, Severe, Itching, 10/27/17) oxaprozin (Unverified Allergy, Severe, Itching, 10/27/17) Uncoded Allergies: ANTIINFLAMATORY (Allergy, Severe, ITCHING, 09/16/14) Past Medical History COPD Hypothyroidism RA Sjgren's syndrome Atrial fibrillation SSS s/p PPM Anxiety GERD HTN 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 Past Surgical History PPM replacement in 08/2017 Appendectomy Cholecystectomy WAYLON with BSO Bilateral knee replacement Right hip arthroplasty C in 2011 Reported Medications Reported Meds & Active Scripts Active Reported Prilosec (Omeprazole Magnesium) 20 Mg Tab 20 Mg PO DAILY Aspir-81 (Aspirin) 81 Mg Tabdr 81 Mg PO DAILY K-Tab (Potassium Chloride) 10 Meq Tab 10 Meq PO DAILY Furosemide 20 Mg Tab 20 Mg PO DAILY Tylenol-Codeine #3 (Acetaminophen-Codeine) 300-30 mg Tab 1 Tab PO Q4H PRN Cartia Xt (Diltiazem ER 24 HR) 120 Mg Caper 120 Mg PO DAILY Prednisone 5 Mg Tab 5 Mg PO DAILY Levothyroxine (Levothyroxine Sodium) 100 Mcg Tab 100 Mcg PO DAILY Digoxin 0.125 Mg Tab 0.125 Mg PO DAILY Alprazolam 0.5 Mg Tab 0.25 Mg PO TID PRN Active Ordered Medications Current Medications Medications (Trade) Dose Ordered Sig/Keshawn Route PRN Reason Start Time Stop Time Status Last Admin Dose Admin Albuterol/ Ipratropium (Duoneb Neb) 1 ampule Q2HR NEB PRN NEB SHORTNESS OF BREATH 10/27/17 15:00 11/02/17 14:13 Acetaminophen (Tylenol) 650 mg Q4H PRN PO fever 10/27/17 15:00 10/30/17 19:50 Ondansetron HCl (Zofran Inj) 4 mg Q6H PRN IV nausea 10/27/17 15:00 Aspirin (Ecotrin Ec) 81 mg DAILY PO 10/28/17 09:00 11/02/17 08:57 Digoxin (Lanoxin) 0.125 mg DAILY PO 10/28/17 09:00 11/02/17 08:57 Levothyroxine Sodium (Synthroid) 100 mcg DAILY@0600 PO 10/28/17 06:00 11/02/17 05:22 Pantoprazole Sodium (Protonix Inj) 40 mg Q24H IV PUSH 10/27/17 15:00 11/02/17 15:00 Insulin Aspart (NovoLOG SUPPLEMENTAL SCALE) 1 ACHS SLIDING SCALE SQ 10/27/17 17:00 11/01/17 20:11 Artificial Tears (Tears Naturale Opth Soln) 1 drop Q4H PRN EACH EYE dry eyes 10/28/17 08:30 10/28/17 18:45 Vancomycin HCl 1000 mg/Sodium Chloride 1,000 ml @ 0 mls/hr PROOF SORTER IRRIGATION 10/29/17 17:15 11/05/17 17:14 11/02/17 12:06 Vancomycin HCl 1000 mg/Sodium Chloride 250 ml @ 250 mls/hr PROOF SORTER IV 10/29/17 17:15 11/05/17 17:14 Chlorhexidine Gluconate (Hibiclens 4% Top Soln) 1 applic PROOF SORTER TOPICAL 10/29/17 17:15 11/05/17 17:14 Dextrose (D50w (Vial) Inj) 50 ml UNSCH PRN IV PUSH HYPOGLYCEMIA-SEE COMMENTS 10/29/17 17:15 Oxacillin Sodium 2 gm/Sodium Chloride 100 ml @ 200 mls/hr Q4H IV 10/30/17 11:00 11/03/17 02:57 Prednisone (Deltasone) 5 mg DAILY PO 11/01/17 09:00 11/02/17 08:56 Tramadol HCl (Ultram) 50 mg Q8H PRN PO pain 3-10 10/31/17 14:45 10/31/17 15:16 Miscellaneous Information Patient in critical care unit? Ass... Q361D .XX 11/01/17 19:15 11/01/17 19:15 Chlorhexidine Gluconate (Chlorhexidine 2% Cloth) 3 pack DAILY@04 TOPICAL 11/02/17 04:00 11/06/17 04:01 11/02/17 04:00 Chlorhexidine Gluconate (Chlorhexidine 2% Cloth) 3 pack UNSCH PRN TOPICAL HYGIENIC CARE 11/01/17 19:15 11/06/17 19:07 Lactated Ringer's 1,000 ml @ 30 mls/hr Q24H PRN IV SEE LABEL COMMENTS 11/01/17 22:15 11/04/17 22:14 Sodium Chloride 500 ml @ 30 mls/hr [id number] PRN IV SEE LABEL COMMENTS 11/01/17 22:15 11/04/17 22:14 Povidone Iodine (Betadine 5% Antisepsis Kit) 1 applic PROOF SORTER PRN EACH NARE SEE LABEL COMMENTS 11/01/17 22:15 11/04/17 22:14 Chlorhexidine Gluconate (Chlorhexidine 2% Cloth) 3 pack PROOF SORTER PRN TOPICAL SEE LABEL COMMENTS 11/01/17 22:15 11/04/17 22:14 Magnesium Hydroxide (Milk Of Magnluciana Liq) 30 ml Q6H PRN PO CONSTIPATION 11/02/17 12:30 Sodium Chloride (NS Flush) 2 ml BID IV FLUSH 11/02/17 21:00 11/02/17 20:05 Sodium Chloride (NS Flush) 2 ml UNSCH PRN IV FLUSH FLUSH AFTER USING IV ACCESS 11/02/17 12:30 Metoprolol Tartrate (Lopressor Inj) 5 mg Q6H PRN IV PUSH sustained afib above 110 11/02/17 15:45 Diltiazem HCl 45 mg/Sodium Chloride 99 ml @ 11 mls/hr TITRATE PRN IV Tachycardia 11/02/17 13:42 Albumin Human 500 ml @ 250 mls/hr ONCE ONCE IV 11/03/17 04:00 11/03/17 05:59 Family History No family history significant of early coronary artery disease or malignancy Social History Remote history of tobacco use, family reports social tobacco use, none regularly and not for many years Denies any alcohol use Patient lives with her daughter who is her primary personal injury law specialist 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 Physical Exam Vital Signs Vital Signs Date Time Temp Pulse Resp B/P (MAP) Pulse Ox O2 Delivery O2 Flow Rate FiO2 11/02/17 22:00 102 11/02/17 20:00 94 11/02/17 20:00 97.4 100 24 115/68 (84) 93 11/02/17 18:00 96 11/02/17 17:05 104 27 95/66 (76) 93 11/02/17 17:00 105 32 77/47 (57) 95 11/02/17 16:45 115 30 71/47 (55) 93 11/02/17 16:42 102 26 83/54 (64) 94 11/02/17 16:41 108 27 78/53 (61) 93 11/02/17 16:30 112 26 95 11/02/17 16:15 100 22 91 11/02/17 16:00 96 11/02/17 16:00 98.1 94 26 91 11/02/17 15:45 92 25 93 11/02/17 15:30 99 25 92 11/02/17 15:15 106 28 94 11/02/17 15:07 103 26 104/56 (72) 94 11/02/17 15:00 95 11/02/17 15:00 101 39 11/02/17 14:45 98.2 94 22 101/66 (78) 94 Nasal Cannula 3 11/02/17 14:30 92 22 104/57 (73) 95 Aerosol Mask 124/55 (78) 11/02/17 14:15 87 20 99/53 (68) 95 Aerosol Mask 119/54 (75) 11/02/17 14:00 89 22 99/53 (68) 93 Nasal Cannula 3 121/56 (77) 11/02/17 13:45 85 25 108/55 (72) 90 Nasal Cannula 3 122/55 (77) 11/02/17 13:30 91 24 101/59 (73) 94 Simple Mask 6 132/58 (82) 11/02/17 13:15 89 20 106/55 (72) 93 Simple Mask 6 117/55 (75) 11/02/17 13:09 98.0 96 22 106/63 (77) 94 Simple Mask 6 11/02/17 10:00 76 11/02/17 08:00 87 11/02/17 08:00 97.2 70 25 162/70 (100) 100 11/02/17 06:00 127 11/02/17 04:00 66 11/02/17 04:00 97.8 69 26 160/71 (100) 98 11/02/17 02:00 65 11/02/17 00:00 97.8 71 22 168/70 (102) 98 11/02/17 00:00 66 Physical Exam GENERAL: Patient is a frail thin, well-developed female, awake and alert, not in respiratory distress. SKIN: Cool and dry. No generalized rash, no ecchymoses and no evidence of embolic lesions. HEAD: Atraumatic. Normocephalic. No temporal wasting, or tenderness. EYES: [place] conjunctiva. No petechia or hemorrhage. Pupils equal, round and reactive to light. Extraocular movements full and intact. No scleral icterus. No injection or drainage. EARS, NOSE AND THROAT: Nose without bleeding or purulent nasal discharge. No sinus tenderness. Dry oral mucosa, she is edentulous. NECK: Trachea midline. Supple and not tender, no meningeal signs CARDIOVASCULAR: Regular rate and rhythm. No murmurs, rubs or gallops heard. Pacemaker site in L upper chest, has some crusting on her incision and has some fluid filled areas. RESPIRATORY: Clear to auscultation. Breath sounds equal bilaterally. No rales , wheezing or rhonchi. Decreased breath sounds at the bases. ABDOMEN: Soft, non-tender, nondistended. Bowel sounds present and normoactive. No guarding. No rebound. No organomegaly. EXTREMITIES: No clubbing, cyanosis, or edema. Has deformities in all her fingers C/W her Hx RA. No joint effusion, has good ROM. No calf tenderness. Well perfused and warm. NEUROLOGICAL: Awake and alert. No facial asymmetry. Moves all her extremities. GCS 15 Laboratory Laboratory Tests Test 11/02/17 16:30 Digoxin Level 1.3 Date/Time Source Procedure Growth Status 11/02/17 15:12 Blood Peripheral Aerobic Blood Culture Pending Received 11/02/17 15:12 Blood Peripheral Anaerobic Blood Culture Pending Received 11/02/17 12:45 Fluid Other Fungal Smear Pending Received 11/02/17 12:45 Fluid Other Fungal Culture Pending Received 10/27/17 10:45 Urine Catheterized Urine Urine Culture - Final NO GROWTH IN 48 HOURS. Complete 11/02/17 12:45 Wound Other Fungal Smear Pending Received 11/02/17 12:45 Wound Other Fungal Culture Pending Received Result Diagram: 11/01/17 0357 11/01/17 0357 Assessment and Plan Assessment and Plan MSSA sepsis -due to infected pacemaker -Pacemaker removed in the OR -IV Oxacillin -Infectious disease consultation appreciated Atrial fibrillation with sick sinus syndrome -Pacemaker removed due to infected hardware -Management per Dr. Wiggins EP cardiology COPD -DuoNeb scheduled and as needed -Low-dose prednisone per home regimen Hypothyroidism -Levothyroxine RA Sjgren's syndrome -Prednisone p.o. GERD -Pantoprazole DVT GI prophylaxis -Logan's and SCDs -Subcu heparin -Pantoprazole Critical Care: The total critical care time was 35 minutes. Time to perform other separately billable procedures was not included in the critical care time. Osiel Croft MD Nov 02, 2017 11:48 pm
[2017-11-03] VITALS (14 sets, daily range): BP systolic 95–137; BP diastolic 52–67; PULSE 68–124; RESP 22–28; TEMP 97.6–98.9; O2SAT 91–98
[2017-11-03] MEDS: OXACILLIN INJ 2 GM in SODIUM CHLORIDE 0.9% INJ 100 ML IV SCH ×6 (02:57→23:39)
[2017-11-03] MEDS: CHLORHEXIDINE GLUCONATE 2 % 1 PACK (2 CLOTHS)(taper/protocol) TOPICAL SCH (04:00)
[2017-11-03] MEDS ORDERED: ALBUMIN 5% INJ 500 ML IV ONE (04:00)
[2017-11-03] MEDS: HEPARIN SODIUM - SQ 10,000 UNITS/ML VIAL SQ SCH ×3 (06:08→21:41)
[2017-11-03] MEDS: LEVOTHYROXINE SODIUM 100 MCG TAB PO SCH (06:08)
[2017-11-03] MEDS: INSULIN ASPART SUPPLEMENTAL SCALE SQ SCH ×4 (08:00→21:40)
--- NOTE | 2017-11-03 08:01 | HHI.IDPN ---
Subjective Subjective Remarks Patient is an 87-year-old female, brought into the hospital for further evaluation of fever and confusion. Patient has sick sinus syndrome and had her pacemaker placed originally in 2009. In August she underwent replacement of the generator. The day prior to admission she apparently was noted to have some purulent drainage coming out of her incision. On the day of admission she was very confused and had a fever with some shaking chills. She was brought into the hospital for further evaluation and treatment. In the emergency room her temperature was up to 104. Patient remains confused. There was no mention of any other symptom as far as respiratory complaint, nausea or vomiting. Was no mention of any problem with urination, or any diarrhea. In the ED she had some hypotension, and received normal saline with improvement of her hemodynamics. Her WBC was 11,000 yesterday, and is down to normal. Her temperatures are better. Cardiothoracic surgery has been consulted for explantation of her pacemaker. Infectious disease consultation has been requested to evaluate the patient. Notes reviewed Had explantation of the pacemaker and removal of the leads November 02 Postop had hypotension and A. fib with RVR Monitor currently A. fib with heart rate above 100 BP better, not on pressors Denies any chest pain or palpitations Not short of breath, or nasal O2 Last (+) BC from 10/30 Admission blood culture and wound culture with MSSA Antibiotics Oxacillin Current Medications Medications (Trade) Dose Ordered Sig/Keshawn Route Start Time Stop Time Status Last Admin (Duoneb Neb) 1 ampule Q2HR NEB PRN NEB 10/27/17 15:00 11/02/17 14:13 (Tylenol) 650 mg Q4H PRN PO 10/27/17 15:00 10/30/17 19:50 (Zofran Inj) 4 mg Q6H PRN IV 10/27/17 15:00 (Ecotrin Ec) 81 mg DAILY PO 10/28/17 09:00 11/02/17 08:57 (Lanoxin) 0.125 mg DAILY PO 10/28/17 09:00 11/02/17 08:57 (Synthroid) 100 mcg DAILY@0600 PO 10/28/17 06:00 11/03/17 06:08 (Protonix Inj) 40 mg Q24H IV PUSH 10/27/17 15:00 11/02/17 15:00 (NovoLOG SUPPLEMENTAL SCALE) 1 ACHS SLIDING SCALE SQ 10/27/17 17:00 11/01/17 20:11 (Tears Naturale Opth Soln) 1 drop Q4H PRN EACH EYE 10/28/17 08:30 10/28/17 18:45 Vancomycin HCl 1000 mg/Sodium Chloride 1,000 ml @ 0 mls/hr BACK TENDER PULP DRIER IRRIGATION 10/29/17 17:15 11/05/17 17:14 11/02/17 12:06 Vancomycin HCl 1000 mg/Sodium Chloride 250 ml @ 250 mls/hr BACK TENDER PULP DRIER IV 10/29/17 17:15 11/05/17 17:14 (Hibiclens 4% Top Soln) 1 applic BACK TENDER PULP DRIER TOPICAL 10/29/17 17:15 11/05/17 17:14 (D50w (Vial) Inj) 50 ml UNSCH PRN IV PUSH 10/29/17 17:15 Oxacillin Sodium 2 gm/Sodium Chloride 100 ml @ 200 mls/hr Q4H IV 10/30/17 11:00 11/03/17 06:08 (Deltasone) 5 mg DAILY PO 11/01/17 09:00 11/02/17 08:56 (Ultram) 50 mg Q8H PRN PO 10/31/17 14:45 10/31/17 15:16 Miscellaneous Information Patient in critical care unit? Ass... Q361D .XX 11/01/17 19:15 11/01/17 19:15 (Chlorhexidine 2% Cloth) 3 pack DAILY@04 TOPICAL 11/02/17 04:00 11/06/17 04:01 11/03/17 04:00 (Chlorhexidine 2% Cloth) 3 pack UNSCH PRN TOPICAL 11/01/17 19:15 11/06/17 19:07 Lactated Ringer's 1,000 ml @ 30 mls/hr Q24H PRN IV 11/01/17 22:15 11/04/17 22:14 Sodium Chloride 500 ml @ 30 mls/hr [id number] PRN IV 11/01/17 22:15 11/04/17 22:14 (Betadine 5% Antisepsis Kit) 1 applic BACK TENDER PULP DRIER PRN EACH NARE 11/01/17 22:15 11/04/17 22:14 (Chlorhexidine 2% Cloth) 3 pack BACK TENDER PULP DRIER PRN TOPICAL 11/01/17 22:15 11/04/17 22:14 (Milk Of Deena Mazariegos) 30 ml Q6H PRN PO 11/02/17 12:30 (NS Flush) 2 ml BID IV FLUSH 11/02/17 21:00 11/02/17 20:05 (NS Flush) 2 ml UNSCH PRN IV FLUSH 11/02/17 12:30 (Lopressor Inj) 5 mg Q6H PRN IV PUSH 11/02/17 15:45 Diltiazem HCl 45 mg/Sodium Chloride 99 ml @ 11 mls/hr TITRATE PRN IV 11/02/17 13:42 (Heparin Inj) 5,000 units Q8HR SQ 11/03/17 06:00 11/03/17 06:08 Lines PIV with no evidence of infection Past Medical History COPD Hypothyroidism RA Sjgren's syndrome Atrial fibrillation SSS s/p PPM Anxiety GERD HTN 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 Past Surgical History PPM replacement in 08/2017 Appendectomy Cholecystectomy WAYLON with BSO Bilateral knee replacement Right hip arthroplasty [facility] in 2011 Allergies: Coded Allergies: NSAIDS (Non-Steroidal Anti-Inflamma (Verified Allergy, Severe, Shortness of Breath, 10/27/17) cephalexin (Unverified Allergy, Severe, HIVES, 10/27/17) diclofenac (Unverified Allergy, Severe, Itching, 10/27/17) etodolac (Unverified Allergy, Severe, Itching, 10/27/17) flurbiprofen (Unverified Allergy, Severe, Itching, 10/27/17) ibuprofen (Unverified Allergy, Severe, Itching, 10/27/17) indomethacin (Unverified Allergy, Severe, Itching, 10/27/17) ketoprofen (Unverified Allergy, Severe, Itching, 10/27/17) ketorolac (Unverified Allergy, Severe, Itching, 10/27/17) naproxen (Unverified Allergy, Severe, Itching, 10/27/17) oxaprozin (Unverified Allergy, Severe, Itching, 10/27/17) Uncoded Allergies: ANTIINFLAMATORY (Allergy, Severe, ITCHING, 09/16/14) Objective . Vital Signs Date Time Temp Pulse Resp B/P (MAP) Pulse Ox O2 Delivery O2 Flow Rate FiO2 11/03/17 06:00 120 11/03/17 04:00 103 28 98/58 (71) 94 11/03/17 04:00 124 11/03/17 02:00 104 11/03/17 00:00 97.6 96 25 95/52 (66) 91 11/03/17 00:00 106 11/02/17 22:00 102 11/02/17 20:00 94 11/02/17 20:00 97.4 100 24 115/68 (84) 93 11/02/17 18:00 96 11/02/17 17:05 104 27 95/66 (76) 93 11/02/17 17:00 105 32 77/47 (57) 95 11/02/17 16:45 115 30 71/47 (55) 93 11/02/17 16:42 102 26 83/54 (64) 94 11/02/17 16:41 108 27 78/53 (61) 93 11/02/17 16:30 112 26 95 11/02/17 16:15 100 22 91 11/02/17 16:00 96 11/02/17 16:00 98.1 94 26 91 11/02/17 15:45 92 25 93 11/02/17 15:30 99 25 92 11/02/17 15:15 106 28 94 11/02/17 15:07 103 26 104/56 (72) 94 11/02/17 15:00 95 11/02/17 15:00 101 39 11/02/17 14:45 98.2 94 22 101/66 (78) 94 Nasal Cannula 3 11/02/17 14:30 92 22 104/57 (73) 95 Aerosol Mask 124/55 (78) 11/02/17 14:15 87 20 99/53 (68) 95 Aerosol Mask 119/54 (75) 11/02/17 14:00 89 22 99/53 (68) 93 Nasal Cannula 3 121/56 (77) 11/02/17 13:45 85 25 108/55 (72) 90 Nasal Cannula 3 122/55 (77) 11/02/17 13:30 91 24 101/59 (73) 94 Simple Mask 6 132/58 (82) 11/02/17 13:15 89 20 106/55 (72) 93 Simple Mask 6 117/55 (75) 11/02/17 13:09 98.0 96 22 106/63 (77) 94 Simple Mask 6 11/02/17 10:00 76 11/02/17 08:00 87 11/02/17 08:00 97.2 70 25 162/70 (100) 100 . Microbiology Date/Time Source Procedure Growth Status 11/03/17 07:04 Blood Peripheral Aerobic Blood Culture Pending Received 11/03/17 07:04 Blood Peripheral Anaerobic Blood Culture Pending Received 11/02/17 15:12 Blood Peripheral Aerobic Blood Culture Pending Received 11/02/17 15:12 Blood Peripheral Anaerobic Blood Culture Pending Received 11/01/17 10:29 Blood Peripheral Aerobic Blood Culture - Preliminary NO GROWTH IN 1 DAY Resulted 11/01/17 10:29 Blood Peripheral Anaerobic Blood Culture - Preliminary NO GROWTH IN 1 DAY Resulted 11/02/17 12:45 Fluid Other Fungal Smear Pending Received 11/02/17 12:45 Fluid Other Fungal Culture Pending Received 11/02/17 12:45 Fluid Other Acid Fast Stain Pending Received 11/02/17 12:45 Fluid Other Mycobacterial Culture Pending Received 11/02/17 12:45 Fluid Other Gram Stain Pending Received 11/02/17 12:45 Fluid Other Body Fluid Culture Pending Received 11/02/17 12:45 Wound Other Fungal Smear Pending Received 11/02/17 12:45 Wound Other Fungal Culture Pending Received 11/02/17 12:45 Wound Other Acid Fast Stain Pending Received 11/02/17 12:45 Wound Other Mycobacterial Culture Pending Received 11/02/17 12:45 Wound Other Gram Stain Pending Received 11/02/17 12:45 Wound Other Wound Culture Pending Received 11/02/17 12:45 Wound Other Fungal Smear Pending Received 11/02/17 12:45 Wound Other Fungal Culture Pending Received 11/02/17 12:45 Wound Other Acid Fast Stain Pending Received 11/02/17 12:45 Wound Other Mycobacterial Culture Pending Received 11/02/17 12:45 Wound Other Gram Stain Pending Received 11/02/17 12:45 Wound Other Wound Culture Pending Received Imaging Last Impressions Chest X-Ray 10/28/17 0600 Signed Impressions: Service Date/Time: October 04:27 - CONCLUSION: Mild left base atelectasis. Zurdo Woodard MD Soft Tissue Ultrasound 10/27/17 0000 Signed Impressions: Service Date/Time: Friday, October 27, 2017 17:45 - CONCLUSION: Small volume of complex fluid in the operative sites in the left chest Zurdo Starr MD Physical Exam GENERAL: Patient is a frail thin, awake and alert, not in respiratory distress. SKIN: Cool and dry. No generalized rash, no ecchymoses and no evidence of embolic lesions. HEAD: Atraumatic. Normocephalic. No temporal wasting, or tenderness. EYES: [place] conjunctiva. No petechia or hemorrhage. Pupils equal, round and reactive to light. Extraocular movements full and intact. No scleral icterus. No injection or drainage. EARS, NOSE AND THROAT: Nose without bleeding or purulent nasal discharge. No sinus tenderness. Moist oral mucosa, she is edentulous. NECK: Trachea midline. Supple and not tender, no meningeal signs CARDIOVASCULAR: Regular rate and rhythm. No murmurs, rubs or gallops heard. Has a dry dressing over her previous pacemaker site. There is one BRANDIN drain in place with bloody fluid RESPIRATORY: Clear to auscultation. Breath sounds equal bilaterally. No rales , wheezing or rhonchi. Decreased breath sounds at the bases. ABDOMEN: Soft, non-tender, nondistended. Bowel sounds present and normoactive. No guarding. No rebound. No organomegaly. EXTREMITIES: No clubbing, cyanosis, or edema. Has deformities in all her fingers C/W her Hx RA. No calf tenderness. Well perfused and warm. NEUROLOGICAL: Awake and alert. No facial asymmetry. Moves all her extremities. PSYCHIATRIC: Normal affect, calm and cooperative. Confused LINE: No evidence of infection Assessment & Plan Remarks IMPRESSION MSSA sepsis, due to infected pacemaker -Status post removal of pacemaker, and leads Atrial fib with RVR Pacemaker infection SSS, S/P pacemaker 2009, exchange Aug 2017 Hx RA and Sjogren Encephalopathy due to sepsis RECOMMENDATION Follow intraoperative cultures Continue IV Oxacillin Patient per report is pacer dependent She will need a long course of IV Abx - will determine course once work-up is completed Monitor clinical progress Repeat blood culture after removal of the pacemaker Edwige Schuler MD Nov 03, 2017 08:01
[2017-11-03] MEDS: predniSONE 5 MG TAB PO SCH (08:57)
[2017-11-03] MEDS: ASPIRIN EC 81 MG TABEC PO SCH (08:58)
[2017-11-03] MEDS: DIGOXIN 0.125 MG TAB PO SCH (08:58)
[2017-11-03] MEDS: SODIUM CHLORIDE 0.9% FLUSH 10 ML FLUSH IV FLUSH SCH ×2 (08:58→21:40)
--- NOTE | 2017-11-03 10:51 | HHI.CCPN ---
Subjective Remarks/Hospital Course 11/02: 87-year-old female, admitted for evaluation of fever and confusion. Patient has sick sinus syndrome and had her pacemaker placed initially in 2009. In August this year she underwent replacement of the generator. The day prior to admission she apparently was noted to have some purulent drainage coming out of her incision site. On the day of admission she was very confused and had a fever with some shaking chills. In the emergency room her temperature was up to 104. In the ED she had some hypotension, and received normal saline with improvement of her hemodynamics. Cardiothoracic surgery has been consulted and the patient underwent explantation of her pacemaker today, November 02, 2017. Postprocedure she became borderline hypotensive, also rapid A. fib with RVR and was admitted to the ICU. 11/03: No events over the night. Patient did not require any vasopressors. She remains in A. fib, currently heart rate in the 70s. She is awake, denies any complaints, no shortness of breath, no chest pain, no palpitations. Objective Vital Signs Date Time Temp Pulse Resp B/P (MAP) Pulse Ox O2 Delivery O2 Flow Rate FiO2 11/03/17 06:00 120 11/03/17 04:00 28 98/58 (71) 94 11/03/17 00:00 97.6 11/02/17 14:45 Nasal Cannula 3 10/30/17 07:33 21 Intake and Output 11/03/17 11/03/17 11/04/17 08:00 16:00 00:00 Intake Total 120 ml Output Total 690 ml Balance -570 ml Result Diagram: 11/01/17 0357 11/01/17 0357 Objective Remarks General - elderly lady, awake, slightly confused, in no distress HEENT - pupils equal, reactive, sclerae anicteric, neck supple, no nuchal rigidity, neck veins not distended, no carotid bruit CV - irregular S1, S2, ? ANA LILIA at apex Chest - clear b/l, good air entry, no wheezes, pacemaker site left upper chest covered with clean dressing Abdomen - soft, non-tender, non-distended, BS present, no hepatomegaly, no splenomegaly Skin - no rashes, no cyanosis Extremities - warm and well perfused, no edema, + peripheral pulses, deformities in all her fingers Neuro - awake, alert, oriented 2, moves all extremities A/P Assessment and Plan 1. 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 Postop hypotension -resolved 3. A. fib with RVR -rate better controlled 4. Sick sinus syndrome, status post pacemaker in 2009 with exchange done in August 2017 5. History of COPD 6. History of RA and Sjogren's syndrome 7. History of hypothyroidism 1. Management of A. fib and SSS per Dr. Wiggins EP cardiology 2. Continue oxacillin, followed by ID. Last positive blood culture on 10/30, negative on 10/31 and 11/01 to date 3. Follow-up blood cultures 4. Continue home dose prednisone 5. Bronchodilators 6. Levothyroxine 7. GI prophylaxis with pantoprazole and DVT prophylaxis with heparin 8. Check labs today Call back with any questions or if additional help is needed. We will transfer patient's care back to hospitalist service. No family present at bedside Shaggy Rosen MD Nov 03, 2017 10:51
--- NOTE | 2017-11-03 13:55 | PD.CAR.PN ---
CVT Progress Note Subjective/Hospital Course: An 87-year-old female, patient of Dr. Rick Zarate, Dr. Calvin Fisher, and Dr. Wiggins, history of symptomatic bradycardia, previous pacer that had a generator change out on 09/01/[address] Wiggins, Biotronik device. Per the notes, the daughter had reported increased confusion from her baseline and also some pus draining from the pacemaker site prior to admission. Fever was about 101. They normally are able to get her up in a wheelchair, but they were unable to lift her, so they called in Evac. Temperature in the ED was 104.2. Blood pressure was also very low with systolic blood pressures in the 80s. She did receive IV fluids. The culture from the pacemaker site showed Staph aureus in the wound culture and also the blood cultures x 4 bottles were positive for Staph aureus. She is currently on vancomycin and Zosyn. We were consulted by Dr. Wiggins for device removal. 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 She has just had a recent generator pacemaker change out 08/2017, Biotronik device. Dementia 11/01 no new complaints for surgery in am to remove pacer device and leads 11/02 surgery: Pacemaker removal and lead extraction Capsulectomy Fluoroscopy 11/03 pt became hypotensive last pm , requiring additional colloids went into Afib RVR/ rate now controlled Dr Wiggins to follow BRANDIN drain 40cc/ 12 hrs , eval for removal in am pt need to be OOB / PT/OT Objective: GENERAL: awake , alert to name and place SKIN: Warm and dry. dressing in place to left upper chest and left mid lateral chest/ BRANDIN drained in place and primed HEAD: Normocephalic. EYES: No scleral icterus. No injection or drainage. NECK: Supple, trachea midline. No JVD or lymphadenopathy. CARDIOVASCULAR: irregular rate and rhythm without murmurs, gallops, or rubs. RESPIRATORY: Breath sounds equal bilaterally. No accessory muscle use. GASTROINTESTINAL: Abdomen soft, non-tender, nondistended. MUSCULOSKELETAL: No cyanosis, or edema. BACK: Nontender without obvious deformity. No CVA tenderness. Vital Signs Date Time Temp Pulse Resp B/P (MAP) Pulse Ox O2 Delivery O2 Flow Rate FiO2 11/03/17 08:00 98.6 104 27 114/67 (83) 93 11/03/17 06:00 120 11/03/17 04:00 103 28 98/58 (71) 94 11/03/17 04:00 124 11/03/17 02:00 104 11/03/17 00:00 97.6 96 25 95/52 (66) 91 11/03/17 00:00 106 11/02/17 22:00 102 11/02/17 20:00 94 11/02/17 20:00 97.4 100 24 115/68 (84) 93 11/02/17 18:00 96 11/02/17 17:05 104 27 95/66 (76) 93 11/02/17 17:00 105 32 77/47 (57) 95 11/02/17 16:45 115 30 71/47 (55) 93 11/02/17 16:42 102 26 83/54 (64) 94 11/02/17 16:41 108 27 78/53 (61) 93 11/02/17 16:30 112 26 95 11/02/17 16:15 100 22 91 11/02/17 16:00 96 11/02/17 16:00 98.1 94 26 91 11/02/17 15:45 92 25 93 11/02/17 15:30 99 25 92 11/02/17 15:15 106 28 94 11/02/17 15:07 103 26 104/56 (72) 94 11/02/17 15:00 95 11/02/17 15:00 101 39 11/02/17 14:45 98.2 94 22 101/66 (78) 94 Nasal Cannula 3 11/02/17 14:30 92 22 104/57 (73) 95 Aerosol Mask 124/55 (78) 11/02/17 14:15 87 20 99/53 (68) 95 Aerosol Mask 119/54 (75) 11/02/17 14:00 89 22 99/53 (68) 93 Nasal Cannula 3 121/56 (77) Labs: Laboratory Tests Test 11/03/17 07:04 Digoxin Level 1.1 NG/ML (0.8-2.0) Result Diagram: 11/01/17 0357 11/01/17 0357 (1) Pacemaker infection Plan: s/p Pacemaker removal and lead extraction Capsulectomy Fluoroscopy will remove BRANDIN in am (2) Sjogren's disease (3) COPD (chronic obstructive pulmonary disease) (4) Atrial fibrillation Meagan Pichardo Nov 03, 2017 13:55
[2017-11-03] MEDS: PANTOPRAZOLE SODIUM 40 MG VIAL IV PUSH SCH (15:24)
[2017-11-03 16:02] LABS: AUTOMATED NEUTROPHIL # 7.4 TH/MM3 (1.8-7.7); BASOPHIL % 0.4 % (0.0-2.0); EOSINOPHIL # 0.1 TH/MM3 (0-0.4); HEMATOCRIT 30.1 % (35.0-46.0); HEMOGLOBIN 9.9 GM/DL (11.6-15.3); LYMPH % 5.8 % (9.0-44.0); LYMPHOCYTE # 0.5 TH/MM3 (1.0-4.8); MEAN CELL VOLUME 79.1 FL (80.0-100.0); MEAN CORPUSCULAR HGB CONC 32.9 % (32.0-36.0); MEAN PLATELET VOLUME 7.4 FL (7.0-11.0); MONO % 2.5 % (0.0-8.0); MONOCYTE # 0.2 TH/MM3 (0-0.9); NEUT % 90.3 % (16.0-70.0); PLATELET COUNT 303 TH/MM3 (150-450); RED CELL DISTRIBUTION WIDTH 15.5 % (11.6-17.2); WHITE BLOOD COUNT 8.2 TH/MM3 (4.0-11.0)
[2017-11-03 16:27] LABS: ALBUMIN 2.3 GM/DL (3.4-5.0); ALT (GPT) 9 U/L (10-53); AST (GOT) 9 U/L (15-37); BICARBONATE 29.4 MEQ/L (21.0-32.0); BLOOD UREA NITROGEN 11 MG/DL (7-18); CALCIUM 7.8 MG/DL (8.5-10.1); CHLORIDE 105 MEQ/L (98-107); CREATININE 0.66 MG/DL (0.50-1.00); GLOMERULAR FILTRATION RATE 85 ML/MIN (>89); GLUCOSE,RANDOM 141 MG/DL (74-106); MAGNESIUM 1.9 MG/DL (1.5-2.5); SODIUM (NA) 143 MEQ/L (136-145)
[2017-11-03 16:29] LABS: ALKALINE PHOSPHATASE 61 U/L (45-117); TOTAL BILIRUBIN ADULT 0.2 MG/DL (0.2-1.0); TOTAL PROTEIN 5.7 GM/DL (6.4-8.2)
[2017-11-04] VITALS (17 sets, daily range): BP systolic 100–155; BP diastolic 57–67; PULSE 58–85; RESP 23–31; TEMP 97.6–98.7; O2SAT 88–100
[2017-11-04] MEDS: OXACILLIN INJ 2 GM in SODIUM CHLORIDE 0.9% INJ 100 ML IV SCH ×6 (03:58→22:26)
[2017-11-04] MEDS: CHLORHEXIDINE GLUCONATE 2 % 1 PACK (2 CLOTHS)(taper/protocol) TOPICAL SCH (04:00)
[2017-11-04] MEDS: LEVOTHYROXINE SODIUM 100 MCG TAB PO SCH (06:14)
[2017-11-04] MEDS: HEPARIN SODIUM - SQ 10,000 UNITS/ML VIAL SQ SCH ×3 (06:14→22:23)
[2017-11-04] MEDS: ASPIRIN EC 81 MG TABEC PO SCH (07:53)
[2017-11-04] MEDS: predniSONE 5 MG TAB PO SCH (07:53)
[2017-11-04] MEDS: DIGOXIN 0.125 MG TAB PO SCH (07:53)
[2017-11-04] MEDS: INSULIN ASPART SUPPLEMENTAL SCALE SQ SCH ×4 (08:00→21:00)
[2017-11-04 08:38] LABS: AUTOMATED NEUTROPHIL # 4.3 TH/MM3 (1.8-7.7); BASOPHIL % 0.7 % (0.0-2.0); EOSINOPHIL # 0.1 TH/MM3 (0-0.4); EOSINOPHIL % 2.2 % (0.0-4.0); HEMATOCRIT 36.6 % (35.0-46.0); HEMOGLOBIN 11.6 GM/DL (11.6-15.3); LYMPH % 13.9 % (9.0-44.0); LYMPHOCYTE # 0.8 TH/MM3 (1.0-4.8); MEAN CORPUSCULAR HEMOGLOBIN 25.2 PG (27.0-34.0); MEAN CORPUSCULAR HGB CONC 31.6 % (32.0-36.0); MEAN PLATELET VOLUME 7.6 FL (7.0-11.0); MONO % 5.5 % (0.0-8.0); MONOCYTE # 0.3 TH/MM3 (0-0.9); NEUT % 77.7 % (16.0-70.0); PLATELET COUNT 218 TH/MM3 (150-450); RED BLOOD COUNT 4.58 MIL/MM3 (4.00-5.30); RED CELL DISTRIBUTION WIDTH 15.9 % (11.6-17.2); WHITE BLOOD COUNT 5.5 TH/MM3 (4.0-11.0)
[2017-11-04 08:47] LABS: BICARBONATE 32.8 MEQ/L (21.0-32.0); CALCIUM 8.2 MG/DL (8.5-10.1); CHLORIDE 105 MEQ/L (98-107); CREATININE 0.65 MG/DL (0.50-1.00); GLOMERULAR FILTRATION RATE 87 ML/MIN (>89); GLUCOSE,RANDOM 67 MG/DL (74-106); SODIUM (NA) 143 MEQ/L (136-145)
[2017-11-04 08:50] LABS: ALT (GPT) 9 U/L (10-53); AST (GOT) 21 U/L (15-37)
[2017-11-04 08:51] LABS: ALKALINE PHOSPHATASE 57 U/L (45-117); TOTAL BILIRUBIN ADULT 0.3 MG/DL (0.2-1.0); TOTAL PROTEIN 5.7 GM/DL (6.4-8.2)
[2017-11-04 08:52] LABS: BLOOD UREA NITROGEN 10 MG/DL (7-18)
[2017-11-04] MEDS: SODIUM CHLORIDE 0.9% FLUSH 10 ML FLUSH IV FLUSH SCH ×2 (09:00→22:23)
[2017-11-04 10:00] LABS: FREE T4 0.91 NG/DL (0.76-1.46)
--- NOTE | 2017-11-04 11:19 | HHI.IDPN ---
Subjective Subjective Remarks Patient is an 87-year-old female, brought into the hospital for further evaluation of fever and confusion. Patient has sick sinus syndrome and had her pacemaker placed originally in 2009. In August she underwent replacement of the generator. The day prior to admission she apparently was noted to have some purulent drainage coming out of her incision. On the day of admission she was very confused and had a fever with some shaking chills. She was brought into the hospital for further evaluation and treatment. In the emergency room her temperature was up to 104. Patient remains confused. There was no mention of any other symptom as far as respiratory complaint, nausea or vomiting. Was no mention of any problem with urination, or any diarrhea. In the ED she had some hypotension, and received normal saline with improvement of her hemodynamics. Her WBC was 11,000 yesterday, and is down to normal. Her temperatures are better. Cardiothoracic surgery has been consulted for explantation of her pacemaker. Infectious disease consultation has been requested to evaluate the patient. Notes reviewed Had explantation of the pacemaker and removal of the leads November 02 Postop had hypotension and A. fib with RVR - BP better, monitor shows NSR BP better, not on pressors Denies any chest pain or palpitations Not short of breath, or nasal O2 Last (+) BC from 10/30 Admission blood culture and wound culture with MSSA Vent lead C/S negative so far Atrial lead C/S negative so far Pacer pocket with Staph Antibiotics Oxacillin Current Medications Medications (Trade) Dose Ordered Sig/Keshawn Route Start Time Stop Time Status Last Admin (Duoneb Neb) 1 ampule Q2HR NEB PRN NEB 10/27/17 15:00 11/02/17 14:13 (Tylenol) 650 mg Q4H PRN PO 10/27/17 15:00 10/30/17 19:50 (Zofran Inj) 4 mg Q6H PRN IV 10/27/17 15:00 (Ecotrin Ec) 81 mg DAILY PO 10/28/17 09:00 11/02/17 08:57 (Lanoxin) 0.125 mg DAILY PO 10/28/17 09:00 11/02/17 08:57 (Synthroid) 100 mcg DAILY@0600 PO 10/28/17 06:00 11/03/17 06:08 (Protonix Inj) 40 mg Q24H IV PUSH 10/27/17:00 11/02/17 15:00 (NovoLOG SUPPLEMENTAL SCALE) 1 ACHS SLIDING SCALE SQ 10/27/17 17:00 11/01/17 20:11 (Tears Naturale Opth Soln) 1 drop Q4H PRN EACH EYE 10/28/17 08:30 10/28/17 18:45 Vancomycin HCl 1000 mg/Sodium Chloride 1,000 ml @ 0 mls/hr GAS MAIN AND LINE FITTER IRRIGATION 10/29/17 17:15 11/05/17 17:14 11/02/17 12:06 Vancomycin HCl 1000 mg/Sodium Chloride 250 ml @ 250 mls/hr GAS MAIN AND LINE FITTER IV 10/29/17 17:15 11/05/17 17:14 (Hibiclens 4% Top Soln) 1 applic GAS MAIN AND LINE FITTER TOPICAL 10/29/17 17:15 11/05/17 17:14 (D50w (Vial) Inj) 50 ml UNSCH PRN IV PUSH 10/29/17 17:15 Oxacillin Sodium 2 gm/Sodium Chloride 100 ml @ 200 mls/hr Q4H IV 10/30/17 11:00 11/03/17 06:08 (Deltasone) 5 mg DAILY PO 11/01/17 09:00 11/02/17 08:56 (Ultram) 50 mg Q8H PRN PO 10/31/17 14:45 10/31/17 15:16 Miscellaneous Information Patient in critical care unit? Ass... [id number] .XX 11/01/17 19:15 11/01/17 19:15 (Chlorhexidine 2% Cloth) 3 pack DAILY@04 TOPICAL 11/02/17 04:00 11/06/17 04:01 11/03/17 04:00 (Chlorhexidine 2% Cloth) 3 pack UNSCH PRN TOPICAL 11/01/17 19:15 11/06/17 19:07 Lactated Ringer's 1,000 ml @ 30 mls/hr Q24H PRN IV 11/01/17 22:15 11/04/17 22:14 Sodium Chloride 500 ml @ 30 mls/hr [id number] PRN IV 11/01/17 22:15 11/04/17 22:14 (Betadine 5% Antisepsis Kit) 1 applic GAS MAIN AND LINE FITTER PRN EACH NARE 11/01/17 22:15 11/04/17 22:14 (Chlorhexidine 2% Cloth) 3 pack GAS MAIN AND LINE FITTER PRN TOPICAL 11/01/17 22:15 11/04/17 22:14 (Milk Of Deena Mazariegos) 30 ml Q6H PRN PO 11/02/17 12:30 (NS Flush) 2 ml BID IV FLUSH 11/02/17 21:00 11/02/17 20:05 (NS Flush) 2 ml UNSCH PRN IV FLUSH 11/02/17 12:30 (Lopressor Inj) 5 mg Q6H PRN IV PUSH 11/02/17 15:45 Diltiazem HCl 45 mg/Sodium Chloride 99 ml @ 11 mls/hr TITRATE PRN IV 11/02/17 13:42 (Heparin Inj) 5,000 units Q8HR SQ 11/03/17 06:00 11/03/17 06:08 Lines PIV with no evidence of infection Past Medical History COPD Hypothyroidism RA Sjgren's syndrome Atrial fibrillation SSS s/p PPM Anxiety GERD HTN 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 Past Surgical History PPM replacement in 08/2017 Appendectomy Cholecystectomy WAYLON with BSO Bilateral knee replacement Right hip arthroplasty [facility] in 2011 Allergies: Coded Allergies: NSAIDS (Non-Steroidal Anti-Inflamma (Verified Allergy, Severe, Shortness of Breath, 10/27/17) cephalexin (Unverified Allergy, Severe, HIVES, 10/27/17) diclofenac (Unverified Allergy, Severe, Itching, 10/27/17) etodolac (Unverified Allergy, Severe, Itching, 10/27/17) flurbiprofen (Unverified Allergy, Severe, Itching, 10/27/17) ibuprofen (Unverified Allergy, Severe, Itching, 10/27/17) indomethacin (Unverified Allergy, Severe, Itching, 10/27/17) ketoprofen (Unverified Allergy, Severe, Itching, 10/27/17) ketorolac (Unverified Allergy, Severe, Itching, 10/27/17) naproxen (Unverified Allergy, Severe, Itching, 10/27/17) oxaprozin (Unverified Allergy, Severe, Itching, 10/27/17) Uncoded Allergies: ANTIINFLAMATORY (Allergy, Severe, ITCHING, 09/16/14) Objective . Vital Signs Date Time Temp Pulse Resp B/P (MAP) Pulse Ox O2 Delivery O2 Flow Rate FiO2 11/04/17 11:00 85 24 135/63 (87) 99 11/04/17 10:00 73 26 143/67 (92) 88 11/04/17 09:00 71 30 134/63 (86) 100 11/04/17 08:00 98.4 70 25 152/65 (94) 100 11/04/17 07:00 66 23 155/67 (96) 96 11/04/17 06:00 70 11/04/17 04:00 70 11/04/17 04:00 98.7 70 28 146/65 (92) 100 Arterial Line 11/04/17 02:00 68 11/04/17 00:00 98.5 70 29 142/63 (89) 100 Arterial Line 11/04/17 00:00 70 11/03/17 22:00 73 11/03/17 20:00 98.9 78 25 137/62 (87) 98 11/03/17 20:00 78 11/03/17 19:05 98 Nasal Cannula 2.00 11/03/17 18:00 68 11/03/17 16:00 98.4 72 22 116/54 (74) 97 11/03/17 16:00 72 11/03/17 14:54 94 11/03/17 14:00 76 11/03/17 12:00 98.6 83 28 126/59 (81) 97 11/03/17 12:00 83 . Laboratory Tests Test 11/03/17 13:51 11/04/17 05:55 White Blood Count 8.2 TH/MM3 5.5 TH/MM3 Red Blood Count 3.80 MIL/MM3 4.58 MIL/MM3 Hemoglobin 9.9 GM/DL 11.6 GM/DL Hematocrit 30.1 % 36.6 % Mean Corpuscular Volume 79.1 FL 80.0 FL Mean Corpuscular Hemoglobin 26.0 PG 25.2 PG Mean Corpuscular Hemoglobin Concent 32.9 % 31.6 % Red Cell Distribution Width 15.5 % 15.9 % Platelet Count 303 TH/MM3 218 TH/MM3 Mean Platelet Volume 7.4 FL 7.6 FL Neutrophils (%) (Auto) 90.3 % 77.7 % Lymphocytes (%) (Auto) 5.8 % 13.9 % Monocytes (%) (Auto) 2.5 % 5.5 % Eosinophils (%) (Auto) 1.0 % 2.2 % Basophils (%) (Auto) 0.4 % 0.7 % Neutrophils # (Auto) 7.4 TH/MM3 4.3 TH/MM3 Lymphocytes # (Auto) 0.5 TH/MM3 0.8 TH/MM3 Monocytes # (Auto) 0.2 TH/MM3 0.3 TH/MM3 Eosinophils # (Auto) 0.1 TH/MM3 0.1 TH/MM3 Basophils # (Auto) 0.0 TH/MM3 0.0 TH/MM3 CBC Comment DIFF FINAL DIFF FINAL Differential Comment Hematology Comments Laboratory Tests Test 11/03/17 13:51 11/04/17 05:55 Blood Urea Nitrogen 11 MG/DL 10 MG/DL Creatinine 0.66 MG/DL 0.65 MG/DL Random Glucose 141 MG/DL 67 MG/DL Total Protein 5.7 GM/DL 5.7 GM/DL Albumin 2.3 GM/DL 2.0 GM/DL Calcium Level 7.8 MG/DL 8.2 MG/DL Phosphorus Level 3.0 MG/DL 4.0 MG/DL Magnesium Level 1.9 MG/DL 2.0 MG/DL Alkaline Phosphatase 61 U/L 57 U/L Aspartate Amino Transf (AST/SGOT) 9 U/L 21 U/L Alanine Aminotransferase (ALT/SGPT) 9 U/L 9 U/L Total Bilirubin 0.2 MG/DL 0.3 MG/DL Sodium Level 143 MEQ/L 143 MEQ/L Potassium Level 4.2 MEQ/L 4.8 MEQ/L Chloride Level 105 MEQ/L 105 MEQ/L Carbon Dioxide Level 29.4 MEQ/L 32.8 MEQ/L Anion Gap 9 MEQ/L 5 MEQ/L Estimat Glomerular Filtration Rate 85 ML/MIN 87 ML/MIN Free Thyroxine 0.91 NG/DL Thyroid Stimulating Hormone 3rd Gen 4.320 uIU/ML Microbiology Date/Time Source Procedure Growth Status 11/03/17 07:04 Blood Peripheral Aerobic Blood Culture - Preliminary NO GROWTH IN 1 DAY Resulted 11/03/17 07:04 Blood Peripheral Anaerobic Blood Culture - Preliminary NO GROWTH IN 1 DAY Resulted 11/02/17 15:12 Blood Peripheral Aerobic Blood Culture - Preliminary NO GROWTH IN 2 DAYS Resulted 11/02/17 15:12 Blood Peripheral Anaerobic Blood Culture - Preliminary NO GROWTH IN 2 DAYS Resulted 11/02/17 12:45 Fluid Other Fungal Smear - Final NO FUNGAL ELEMENTS SEEN. Resulted 11/02/17 12:45 Fluid Other Fungal Culture Pending Resulted 11/02/17 12:45 Fluid Other Acid Fast Stain - Final NO ACID FAST BACILLI SEEN Resulted 11/02/17 12:45 Fluid Other Mycobacterial Culture Pending Resulted 11/02/17 12:45 Fluid Other Gram Stain - Final Resulted 11/02/17 12:45 Body Fluid Culture - Preliminary Staphylococcus Aureus Staph Sp Coagulase Negative Resulted 11/02/17 12:45 Wound Other Fungal Smear - Final NO FUNGAL ELEMENTS SEEN. Resulted 11/02/17 12:45 Wound Other Fungal Culture Pending Resulted 11/02/17 12:45 Wound Other Acid Fast Stain - Final NO ACID FAST BACILLI SEEN Resulted 11/02/17 12:45 Wound Other Mycobacterial Culture Pending Resulted 11/02/17 12:45 Wound Other Gram Stain - Final Resulted 11/02/17 12:45 Wound Other Wound Culture - Preliminary NO GROWTH IN 48 HOURS. Resulted 11/02/17 12:45 Wound Other Fungal Smear - Final NO FUNGAL ELEMENTS SEEN. Resulted 11/02/17 12:45 Wound Other Fungal Culture Pending Resulted 11/02/17 12:45 Wound Other Acid Fast Stain - Final NO ACID FAST BACILLI SEEN Resulted 11/02/17 12:45 Wound Other Mycobacterial Culture Pending Resulted 11/02/17 12:45 Wound Other Gram Stain - Final Resulted 11/02/17 12:45 Wound Other Wound Culture - Preliminary NO GROWTH IN 48 HOURS. Resulted Imaging Last Impressions Chest X-Ray 10/28/17 0600 Signed Impressions: Service Date/Time: October 04:27 - CONCLUSION: Mild left base atelectasis. Zurdo Woodard MD Soft Tissue Ultrasound 10/27/17 0000 Signed Impressions: Service Date/Time: Friday, October 27, 2017 17:45 - CONCLUSION: Small volume of complex fluid in the operative sites in the left chest Zurdo Starr MD Physical Exam GENERAL: awake and alert, not in respiratory distress. Up in chair SKIN: Cool and dry. No generalized rash, no ecchymoses and no evidence of embolic lesions. HEAD: Atraumatic. Normocephalic. No temporal wasting, or tenderness. EYES: Sorrel conjunctiva. No petechia or hemorrhage. Pupils equal, round and reactive to light. Extraocular movements full and intact. No scleral icterus. No injection or drainage. EARS, NOSE AND THROAT: Nose without bleeding or purulent nasal discharge. Moist oral mucosa, she is edentulous. NECK: Trachea midline. Supple and not tender, no meningeal signs CARDIOVASCULAR: Regular rate and rhythm. No murmurs, rubs or gallops heard. Has a dry dressing over her previous pacemaker site. There is one BRANDIN drain in place with bloody fluid RESPIRATORY: Clear to auscultation. Breath sounds equal bilaterally. No rales , wheezing or rhonchi. Decreased breath sounds at the bases. ABDOMEN: Soft, non-tender, nondistended. Bowel sounds present and normoactive. No guarding. No rebound. No organomegaly. EXTREMITIES: No clubbing, cyanosis, or edema. Has deformities in all her fingers C/W her Hx RA. No calf tenderness. Well perfused and warm. NEUROLOGICAL: Awake and alert. No facial asymmetry. Moves all her extremities. PSYCHIATRIC: Normal affect, calm and cooperative. Confused LINE: No evidence of infection Assessment & Plan Remarks IMPRESSION MSSA sepsis, due to infected pacemaker -Status post removal of pacemaker, and leads Atrial fib with RVR - now in NSR Pacemaker infection SSS, S/P pacemaker 2009, exchange Aug 2017 Hx RA and Sjogren Encephalopathy due to sepsis RECOMMENDATION Follow intraoperative cultures Continue IV Oxacillin Patient per report is pacer dependent She will need a long course of IV Abx - plan 6 weeks IV Abx from date of pacer removal - anticipated end date December 13 Monitor clinical progress Repeat blood culture after removal of the pacemaker I will be off November 05- Other ID MD available if needed Edwige Schuler MD Nov 04, 2017 11:18
[2017-11-04] MEDS: PANTOPRAZOLE SODIUM 40 MG VIAL IV PUSH SCH (15:06)
--- NOTE | 2017-11-04 15:27 | HHI.PR ---
Subjective Remarks No new complaints. Pt's pain is controlled. Pt is tolerating PO intake. No n/v/d. Objective Vitals Vital Signs Date Time Temp Pulse Resp B/P (MAP) Pulse Ox O2 Delivery O2 Flow Rate FiO2 11/04/17 12:00 98.5 76 27 100/57 (71) 99 11/04/17 11:00 85 11/04/17 11:00 85 24 135/63 (87) 99 11/04/17 10:00 73 11/04/17 10:00 73 26 143/67 (92) 88 11/04/17 09:00 71 11/04/17 09:00 71 30 134/63 (86) 100 11/04/17 08:00 70 11/04/17 08:00 98.4 70 25 152/65 (94) 100 11/04/17 07:00 66 23 155/67 (96) 96 11/04/17 07:00 66 11/04/17 06:00 70 11/04/17 04:00 70 11/04/17 04:00 98.7 70 28 146/65 (92) 100 Arterial Line 11/04/17 02:00 68 11/04/17 00:00 98.5 70 29 142/63 (89) 100 Arterial Line 11/04/17 00:00 70 11/03/17 22:00 73 11/03/17 20:00 98.9 78 25 137/62 (87) 98 11/03/17 20:00 78 11/03/17 19:05 98 Nasal Cannula 2.00 11/03/17 18:00 68 11/03/17 16:00 98.4 72 22 116/54 (74) 97 11/03/17 16:00 72 11/04/17 11/04/17 11/05/17 15:00 23:00 07:00 Intake Total 100 ml Balance 100 ml IV Total 100 ml Result Diagram: 11/04/17 0555 11/04/17 0555 Imaging Last Impressions Chest X-Ray 11/02/17 0000 Signed Impressions: Service Date/Time: Thursday, November 02, 2017 13:19 - CONCLUSION: Mild pulmonary edema. Left lower lobe atelectasis. Small left pleural effusion. No evidence of pneumothorax. Dawson Turner MD Soft Tissue Ultrasound 10/27/17 0000 Signed Impressions: Service Date/Time: Friday, October 27, 2017 17:45 - CONCLUSION: Small volume of complex fluid in the operative sites in the left chest Zurdo Starr MD Objective Remarks GENERAL: This is a well-nourished, well-developed patient, in no apparent distress. CARDIOVASCULAR: Regular rate and rhythm without murmurs, gallops, or rubs. RESPIRATORY: Clear to auscultation. Breath sounds equal bilaterally. No wheezes , rales, or rhonchi. GASTROINTESTINAL: Abdomen soft, non-tender, nondistended. Normal active bowel sounds MUSCULOSKELETAL: Extremities without clubbing, cyanosis, or edema. NEURO: Alert & Oriented x4 to person, place, time, situation. Moves all ext x4 skin: induration noted over pacemaker, LUE is edematous. A/P Problem List: (1) Sepsis ICD Codes: A41.9 - Sepsis, unspecified organism Status: Acute Plan: Sepsis Pacemaker site infection MSSA pm infection/sepsis - 87 y/o WF with RA, hx of atrial fibrillation and SSS s/p PPM, hypothyroidism, COPD, and Sjogren's syndrome. Pt recently had PPM replacement in 08/[address] Wiggins. - comgmt with CTS, ID - Her daughter reports that she noticed some pus drainage from her PPM incision x 1 day. Pt was more confused and had a fever of 101 by temporal thermometer and shaking chills. - Family was unable to lift the patient to the wheelchair and so an ambulance was called. - In the ED her temp was 104.2. Her BP has been quite low in the ED with sbp's 70s - A culture of the pus coming from the PPM incision site was taken in the ED prior to abx being given. - - Pt was given 2.5 L NS bolus in ED. stop ivf. tolerating diet. - Stress dose steroids were started for persist hypotension. bp stable. continue wean back to baseline dose - stopped zosyn 10/29 - Vancomycin stopped 10/30 - oxacillin started (10/30 - present) - Per ID, Dr. Schuler, pt will need long course of IV ABX, 6 week course - ABX end date anticipated 12/13/17 - infected PPM and leads removed by CTS (11/02/17) - repeat blood cx (11/02) --> NGTD - Blood pressure stabilized and medial care transferred back to the Hospitalist Service from [facility] 11/03/17 - PT - Case d/w ID, Dr. Schuler (11/04). If repeat cultures remain negative, then will place PICC 11/05/17 - Anticipate d/c in next 1-3 days - would prefer discharge to SNF d/t generalized weakness and need for abx thru - Need for SNF d/w pt's daughter Hoa Al by phone (11/04/17) - DVT prophylaxis Atrial fibrillation Hx of SSS s/p PPM - Hold Cardizem as BP is too low to continue - Cont. Digoxin - Telemetry COPD - Duonebs PRN Hypothyroidism - Cont. home meds Sjogrens syndrome RA - Pt chronically on Prednisone 5mg po daily, this will be held for now - Give stress steroids and taper (2) Pacemaker infection ICD Codes: T82.7XXA - Infection and inflammatory reaction due to other cardiac and vascular devices, implants and grafts, initial encounter Status: Acute Plan: - see above (3) Atrial fibrillation ICD Codes: I48.91 - Atrial fibrillation Status: Chronic Plan: - see above (4) COPD (chronic obstructive pulmonary disease) ICD Codes: J44.9 - Chronic obstructive pulmonary disease, unspecified Status: Chronic Plan: - duonebs prn (5) Hypothyroidism ICD Codes: E03.9 - Hypothyroidism Status: Chronic Plan: - levothyroxine (6) Anxiety ICD Codes: F41.9 - Anxiety Status: Chronic (7) Rheumatoid arthritis ICD Codes: M06.9 - Rheumatoid arthritis Status: Chronic Plan: - chronic PO prednisone 5mg daily (8) Sjogren's disease ICD Codes: M35.00 - Sjogren's disease Status: Chronic Problem Qualifiers (1) Atrial fibrillation: Qualified Codes: I48.2 - Chronic atrial fibrillation (2) COPD (chronic obstructive pulmonary disease): (3) Hypothyroidism: Qualified Codes: E03.9 - Hypothyroidism, unspecified (4) Rheumatoid arthritis: (5) Sjogren's disease: Qualified Codes: M35.00 - Sicca syndrome, unspecified Toñito Duncan DO Nov 04, 2017 15:27
--- NOTE | 2017-11-04 16:25 | PD.CAR.PN ---
CVT Progress Note Subjective/Hospital Course: An 87-year-old female, patient of Dr. Rick Zarate, Dr. Calvin Fisher, and Dr. Wiggins, history of symptomatic bradycardia, previous pacer that had a generator change out on 09/01/[address] Wiggins, Biotronik device. Per the notes, the daughter had reported increased confusion from her baseline and also some pus draining from the pacemaker site prior to admission. Fever was about 101. They normally are able to get her up in a wheelchair, but they were unable to lift her, so they called in Evac. Temperature in the ED was 104.2. Blood pressure was also very low with systolic blood pressures in the 80s. She did receive IV fluids. The culture from the pacemaker site showed Staph aureus in the wound culture and also the blood cultures x 4 bottles were positive for Staph aureus. She is currently on vancomycin and Zosyn. We were consulted by Dr. Wiggins for device removal. 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 She has just had a recent generator pacemaker change out 08/2017, Biotronik device. Dementia 11/01 no new complaints for surgery in am to remove pacer device and leads 11/02 surgery: Pacemaker removal and lead extraction Capsulectomy Fluoroscopy 11/03 pt became hypotensive last pm , requiring additional colloids went into Afib RVR/ rate now controlled Dr Wiggins to follow BRANDIN drain 40cc/ 12 hrs , eval for removal in am pt need to be OOB / PT/OT 11/04 BRANDIN drain dc without difficulty leave upper left incision open to air pt need to be OOB in chair/ Objective: GENERAL: awake and oriented SKIN: Warm and dry. incision intact left upper chest wall , BRANDIN drain removed HEAD: Normocephalic. EYES: No scleral icterus. No injection or drainage. NECK: Supple, trachea midline. No JVD or lymphadenopathy. CARDIOVASCULAR: Regular rate and rhythm without murmurs, gallops, or rubs. afib rate controlled RESPIRATORY: Breath sounds equal bilaterally. No accessory muscle use. GASTROINTESTINAL: Abdomen soft, non-tender, nondistended. MUSCULOSKELETAL: No cyanosis, or edema. BACK: Nontender without obvious deformity. No CVA tenderness. Vital Signs Date Time Temp Pulse Resp B/P (MAP) Pulse Ox O2 Delivery O2 Flow Rate FiO2 11/04/17 12:00 98.5 76 27 100/57 (71) 99 11/04/17 11:00 85 11/04/17 11:00 85 24 135/63 (87) 99 11/04/17 10:00 73 11/04/17 10:00 73 26 143/67 (92) 88 11/04/17 09:00 71 11/04/17 09:00 71 30 134/63 (86) 100 11/04/17 08:00 70 11/04/17 08:00 98.4 70 25 152/65 (94) 100 11/04/17 07:00 66 23 155/67 (96) 96 11/04/17 07:00 66 11/04/17 06:00 70 11/04/17 04:00 70 11/04/17 04:00 98.7 70 28 146/65 (92) 100 Arterial Line 11/04/17 02:00 68 11/04/17 00:00 98.5 70 29 142/63 (89) 100 Arterial Line 11/04/17 00:00 70 11/03/17 22:00 73 11/03/17 20:00 98.9 78 25 137/62 (87) 98 11/03/17 20:00 78 11/03/17 19:05 98 Nasal Cannula 2.00 11/03/17 18:00 68 Labs: Laboratory Tests Test 11/04/17 05:55 White Blood Count 5.5 TH/MM3 (4.0-11.0) Red Blood Count 4.58 MIL/MM3 (4.00-5.30) Hemoglobin 11.6 GM/DL (11.6-15.3) Hematocrit 36.6 % (35.0-46.0) Mean Corpuscular Volume 80.0 FL (80.0-100.0) Mean Corpuscular Hemoglobin 25.2 PG (27.0-34.0) Mean Corpuscular Hemoglobin Concent 31.6 % (32.0-36.0) Red Cell Distribution Width 15.9 % (11.6-17.2) Platelet Count 218 TH/MM3 (150-450) Mean Platelet Volume 7.6 FL (7.0-11.0) Neutrophils (%) (Auto) 77.7 % (16.0-70.0) Lymphocytes (%) (Auto) 13.9 % (9.0-44.0) Monocytes (%) (Auto) 5.5 % (0.0-8.0) Eosinophils (%) (Auto) 2.2 % (0.0-4.0) Basophils (%) (Auto) 0.7 % (0.0-2.0) Neutrophils # (Auto) 4.3 TH/MM3 (1.8-7.7) Lymphocytes # (Auto) 0.8 TH/MM3 (1.0-4.8) Monocytes # (Auto) 0.3 TH/MM3 (0-0.9) Eosinophils # (Auto) 0.1 TH/MM3 (0-0.4) Basophils # (Auto) 0.0 TH/MM3 (0-0.2) CBC Comment DIFF FINAL Differential Comment Hematology Comments Blood Urea Nitrogen 10 MG/DL (7-18) Creatinine 0.65 MG/DL (0.50-1.00) Random Glucose 67 MG/DL (74-106) Total Protein 5.7 GM/DL (6.4-8.2) Albumin 2.0 GM/DL (3.4-5.0) Calcium Level 8.2 MG/DL (8.5-10.1) Phosphorus Level 4.0 MG/DL (2.5-4.9) Magnesium Level 2.0 MG/DL (1.5-2.5) Alkaline Phosphatase 57 U/L (45-117) Aspartate Amino Transf (AST/SGOT) 21 U/L (15-37) Alanine Aminotransferase (ALT/SGPT) 9 U/L (10-53) Total Bilirubin 0.3 MG/DL (0.2-1.0) Sodium Level 143 MEQ/L (136-145) Potassium Level 4.8 MEQ/L (3.5-5.1) Chloride Level 105 MEQ/L (98-107) Carbon Dioxide Level 32.8 MEQ/L (21.0-32.0) Anion Gap 5 MEQ/L (5-15) Estimat Glomerular Filtration Rate 87 ML/MIN (>89) Free Thyroxine 0.91 NG/DL (0.76-1.46) Thyroid Stimulating Hormone 3rd Gen 4.320 uIU/ML (0.358-3.740) Result Diagram: 11/04/17 0555 11/04/17 0555 (1) Pacemaker infection Plan: s/p Pacemaker removal and lead extraction Capsulectomy Fluoroscopy BRANDIN drain removed ok to transfer to stepdown from [facility] standpoint (2) Sjogren's disease (3) COPD (chronic obstructive pulmonary disease) (4) Atrial fibrillation Problem Qualifiers (1) Sjogren's disease: Qualified Codes: M35.00 - Sicca syndrome, unspecified (2) COPD (chronic obstructive pulmonary disease): (3) Atrial fibrillation: Qualified Codes: I48.2 - Chronic atrial fibrillation Meagan Pichardo Nov 04, 2017 16:25
[2017-11-05] VITALS (17 sets, daily range): BP systolic 89–156; BP diastolic 35–83; PULSE 71–130; RESP 20–32; TEMP 98.2–99.2; O2SAT 82–100
[2017-11-05] MEDS: CHLORHEXIDINE GLUCONATE 2 % 1 PACK (2 CLOTHS)(taper/protocol) TOPICAL SCH (03:42)
[2017-11-05] MEDS: OXACILLIN INJ 2 GM in SODIUM CHLORIDE 0.9% INJ 100 ML IV SCH ×6 (03:42→23:49)
[2017-11-05] MEDS: METOPROLOL TARTRATE 5 MG/5 ML VIAL IV PUSH PRN ×2 (03:42→08:39)
[2017-11-05] MEDS: HEPARIN SODIUM - SQ 10,000 UNITS/ML VIAL SQ SCH ×3 (06:01→21:51)
[2017-11-05] MEDS: LEVOTHYROXINE SODIUM 100 MCG TAB PO SCH (06:01)
[2017-11-05 06:03] LABS: AUTOMATED NEUTROPHIL # 6.4 TH/MM3 (1.8-7.7); BASOPHIL % 0.5 % (0.0-2.0); EOSINOPHIL # 0.1 TH/MM3 (0-0.4); EOSINOPHIL % 1.6 % (0.0-4.0); HEMATOCRIT 34.9 % (35.0-46.0); HEMOGLOBIN 11.4 GM/DL (11.6-15.3); LYMPH % 7.7 % (9.0-44.0); LYMPHOCYTE # 0.6 TH/MM3 (1.0-4.8); MEAN CORPUSCULAR HEMOGLOBIN 25.7 PG (27.0-34.0); MEAN CORPUSCULAR HGB CONC 32.6 % (32.0-36.0); MEAN PLATELET VOLUME 7.2 FL (7.0-11.0); MONO % 5.5 % (0.0-8.0); MONOCYTE # 0.4 TH/MM3 (0-0.9); NEUT % 84.7 % (16.0-70.0); PLATELET COUNT 298 TH/MM3 (150-450); RED BLOOD COUNT 4.42 MIL/MM3 (4.00-5.30); RED CELL DISTRIBUTION WIDTH 15.7 % (11.6-17.2); WHITE BLOOD COUNT 7.5 TH/MM3 (4.0-11.0)
[2017-11-05 06:29] LABS: ALBUMIN 2.2 GM/DL (3.4-5.0); ALT (GPT) 9 U/L (10-53); AST (GOT) 13 U/L (15-37); BICARBONATE 33.1 MEQ/L (21.0-32.0); BLOOD UREA NITROGEN 10 MG/DL (7-18); CALCIUM 8.7 MG/DL (8.5-10.1); CHLORIDE 101 MEQ/L (98-107); GLOMERULAR FILTRATION RATE 95 ML/MIN (>89); GLUCOSE,RANDOM 81 MG/DL (74-106); PHOSPHORUS 3.3 MG/DL (2.5-4.9); SODIUM (NA) 144 MEQ/L (136-145)
[2017-11-05 06:31] LABS: ALKALINE PHOSPHATASE 71 U/L (45-117); TOTAL BILIRUBIN ADULT 0.2 MG/DL (0.2-1.0); TOTAL PROTEIN 6.7 GM/DL (6.4-8.2)
[2017-11-05] MEDS: INSULIN ASPART SUPPLEMENTAL SCALE SQ SCH ×4 (08:00→21:00)
[2017-11-05] MEDS: predniSONE 5 MG TAB PO SCH (08:14)
[2017-11-05] MEDS: ASPIRIN EC 81 MG TABEC PO SCH (08:14)
[2017-11-05] MEDS: DIGOXIN 0.125 MG TAB PO SCH (08:14)
[2017-11-05] MEDS: SODIUM CHLORIDE 0.9% FLUSH 10 ML FLUSH IV FLUSH SCH ×2 (08:15→21:00)
[2017-11-05] MEDS: DILTIAZEM-CD 120 MG CAP ER PO SCH (12:42)
[2017-11-05] MEDS: PANTOPRAZOLE SODIUM 40 MG VIAL IV PUSH SCH (14:52)
--- NOTE | 2017-11-05 15:03 | PD.CAR.PN ---
CVT Progress Note Subjective/Hospital Course: An 87-year-old female, patient of Dr. Rick Zarate, Dr. Calvin Fisher, and Dr. Wiggins, history of symptomatic bradycardia, previous pacer that had a generator change out on 09/01/[address] Wiggins, Biotronik device. Per the notes, the daughter had reported increased confusion from her baseline and also some pus draining from the pacemaker site prior to admission. Fever was about 101. They normally are able to get her up in a wheelchair, but they were unable to lift her, so they called in Evac. Temperature in the ED was 104.2. Blood pressure was also very low with systolic blood pressures in the 80s. She did receive IV fluids. The culture from the pacemaker site showed Staph aureus in the wound culture and also the blood cultures x 4 bottles were positive for Staph aureus. She is currently on vancomycin and Zosyn. We were consulted by Dr. Wiggins for device removal. 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 She has just had a recent generator pacemaker change out 08/2017, Biotronik device. Dementia 11/01 no new complaints for surgery in am to remove pacer device and leads 11/02 surgery: Pacemaker removal and lead extraction Capsulectomy Fluoroscopy 11/03 pt became hypotensive last pm , requiring additional colloids went into Afib RVR/ rate now controlled Dr Wiggins to follow BRANDIN drain 40cc/ 12 hrs , eval for removal in am pt need to be OOB / PT/OT 11/04 BRANDIN drain dc without difficulty leave upper left incision open to air pt need to be OOB in chair/ will see prn Objective: Vital Signs Date Time Temp Pulse Resp B/P (MAP) Pulse Ox O2 Delivery O2 Flow Rate FiO2 11/05/17 08:42 97 Nasal Cannula 2.00 11/05/17 04:00 98.2 93 25 130/35 (66) 95 11/05/17 04:00 93 11/05/17 00:00 71 11/05/17 00:00 98.5 71 26 156/68 (97) 94 11/04/17 20:00 74 11/04/17 20:00 98.5 74 31 146/65 (92) 94 11/04/17 18:00 66 11/04/17 17:00 58 11/04/17 17:00 58 24 141/65 (90) 96 11/04/17 16:00 65 11/04/17 16:00 97.6 65 25 144/67 (92) 99 Labs: Laboratory Tests Test 11/05/17 04:05 White Blood Count 7.5 TH/MM3 (4.0-11.0) Red Blood Count 4.42 MIL/MM3 (4.00-5.30) Hemoglobin 11.4 GM/DL (11.6-15.3) Hematocrit 34.9 % (35.0-46.0) Mean Corpuscular Volume 79.0 FL (80.0-100.0) Mean Corpuscular Hemoglobin 25.7 PG (27.0-34.0) Mean Corpuscular Hemoglobin Concent 32.6 % (32.0-36.0) Red Cell Distribution Width 15.7 % (11.6-17.2) Platelet Count 298 TH/MM3 (150-450) Mean Platelet Volume 7.2 FL (7.0-11.0) Neutrophils (%) (Auto) 84.7 % (16.0-70.0) Lymphocytes (%) (Auto) 7.7 % (9.0-44.0) Monocytes (%) (Auto) 5.5 % (0.0-8.0) Eosinophils (%) (Auto) 1.6 % (0.0-4.0) Basophils (%) (Auto) 0.5 % (0.0-2.0) Neutrophils # (Auto) 6.4 TH/MM3 (1.8-7.7) Lymphocytes # (Auto) 0.6 TH/MM3 (1.0-4.8) Monocytes # (Auto) 0.4 TH/MM3 (0-0.9) Eosinophils # (Auto) 0.1 TH/MM3 (0-0.4) Basophils # (Auto) 0.0 TH/MM3 (0-0.2) CBC Comment DIFF FINAL Differential Comment Blood Urea Nitrogen 10 MG/DL (7-18) Creatinine 0.60 MG/DL (0.50-1.00) Random Glucose 81 MG/DL (74-106) Total Protein 6.7 GM/DL (6.4-8.2) Albumin 2.2 GM/DL (3.4-5.0) Calcium Level 8.7 MG/DL (8.5-10.1) Phosphorus Level 3.3 MG/DL (2.5-4.9) Magnesium Level 2.0 MG/DL (1.5-2.5) Alkaline Phosphatase 71 U/L (45-117) Aspartate Amino Transf (AST/SGOT) 13 U/L (15-37) Alanine Aminotransferase (ALT/SGPT) 9 U/L (10-53) Total Bilirubin 0.2 MG/DL (0.2-1.0) Sodium Level 144 MEQ/L (136-145) Potassium Level 4.0 MEQ/L (3.5-5.1) Chloride Level 101 MEQ/L (98-107) Carbon Dioxide Level 33.1 MEQ/L (21.0-32.0) Anion Gap 10 MEQ/L (5-15) Estimat Glomerular Filtration Rate 95 ML/MIN (>89) Result Diagram: 11/05/17 0405 11/05/17 0405 (1) Pacemaker infection Plan: s/p Pacemaker removal and lead extraction Capsulectomy Fluoroscopy BRANDIN drain removed ok to transfer to stepdown from [facility] standpoint (2) Sjogren's disease (3) COPD (chronic obstructive pulmonary disease) (4) Atrial fibrillation Problem Qualifiers (1) Sjogren's disease: Qualified Codes: M35.00 - Sicca syndrome, unspecified (2) COPD (chronic obstructive pulmonary disease): (3) Atrial fibrillation: Qualified Codes: I48.2 - Chronic atrial fibrillation Meagan Pichardo Nov 05, 2017 15:03
--- NOTE | 2017-11-05 18:28 | HHI.PR ---
Subjective Remarks No new complaints. Objective Vitals Vital Signs Date Time Temp Pulse Resp B/P (MAP) Pulse Ox O2 Delivery O2 Flow Rate FiO2 11/05/17 17:00 87 24 89/55 (66) 97 11/05/17 16:00 98.5 93 25 101/58 (72) 96 11/05/17 15:00 107 27 108/59 (75) 98 11/05/17 14:00 98 23 106/59 (75) 99 11/05/17 13:00 125 27 113/75 (88) 98 11/05/17 12:22 123 29 117/67 (84) 96 11/05/17 12:00 98.4 128 24 129/83 (98) 95 11/05/17 11:00 93 23 114/56 (75) 95 11/05/17 10:01 99 24 156/69 (98) 82 11/05/17 10:00 93 32 92 11/05/17 09:00 83 20 124/63 (83) 99 11/05/17 08:42 97 Nasal Cannula 2.00 11/05/17 08:00 99.2 130 27 128/83 (98) 97 11/05/17 04:00 98.2 93 25 130/35 (66) 95 11/05/17 04:00 93 11/05/17 00:00 71 11/05/17 00:00 98.5 71 26 156/68 (97) 94 11/04/17 20:00 74 11/04/17 20:00 98.5 74 31 146/65 (92) 94 11/05/17 11/05/17 11/06/17 15:00 23:00 07:00 Intake Total 100 ml 100 ml Balance 100 ml 100 ml IV Total 100 ml 100 ml Result Diagram: 11/05/17 0405 11/05/17 0405 Imaging Last Impressions Chest X-Ray 11/02/17 0000 Signed Impressions: Service Date/Time: Thursday, November 02, 2017 13:19 - CONCLUSION: Mild pulmonary edema. Left lower lobe atelectasis. Small left pleural effusion. No evidence of pneumothorax. Dawson Turner MD Soft Tissue Ultrasound 10/27/17 0000 Signed Impressions: Service Date/Time: Friday, October 27, 2017 17:45 - CONCLUSION: Small volume of complex fluid in the operative sites in the left chest Zurdo Starr MD Objective Remarks GENERAL: This is a well-nourished, well-developed patient, in no apparent distress. CARDIOVASCULAR: Regular rate and rhythm without murmurs, gallops, or rubs. RESPIRATORY: Clear to auscultation. Breath sounds equal bilaterally. No wheezes , rales, or rhonchi. GASTROINTESTINAL: Abdomen soft, non-tender, nondistended. Normal active bowel sounds MUSCULOSKELETAL: Extremities without clubbing, cyanosis, or edema. NEURO: Alert & Oriented x4 to person, place, time, situation. Moves all ext x4 skin: induration over pacemaker site largely resolved, LUE remains edematous A/P Problem List: (1) Sepsis ICD Codes: A41.9 - Sepsis, unspecified organism Status: Acute Plan: Sepsis Pacemaker site infection MSSA pm infection/sepsis - 87 y/o WF with RA, hx of atrial fibrillation and SSS s/p PPM, hypothyroidism, COPD, and Sjogren's syndrome. Pt recently had PPM replacement in 08/[address] Wiggins. - comgmt with CTS, ID - Her daughter reports that she noticed some pus drainage from her PPM incision x 1 day. Pt was more confused and had a fever of 101 by temporal thermometer and shaking chills. - Family was unable to lift the patient to the wheelchair and so an ambulance was called. - In the ED her temp was 104.2. Her BP has been quite low in the ED with sbp's 70s - A culture of the pus coming from the PPM incision site was taken in the ED prior to abx being given. - - Pt was given 2.5 L NS bolus in ED. stop ivf. tolerating diet. - Stress dose steroids were started for persist hypotension. bp stable. continue wean back to baseline dose - stopped zosyn 10/29 - Vancomycin stopped 10/30 - oxacillin started (10/30 - present) - Per ID, Dr. Schuler, pt will need long course of IV ABX, 6 week course - ABX end date anticipated 12/13/17 - infected PPM and leads removed by CTS (11/02/17) - repeat blood cx (11/02) --> NGTD - Blood pressure stabilized and medial care transferred back to the Hospitalist Service from [facility] 11/03/17 - PT - Case d/w ID, Dr. Schuler (11/04). If repeat cultures remain negative, then will place PICC 11/05/17 - Repeat Blood Cx (11/02) --> NGTD - Repeat Blood Cx (11/03) --> NGTD - Anticipate d/c in next 1-3 days - anticipate d/c to SNF 11/08 - DVT prophylaxis Atrial fibrillation Hx of SSS s/p PPM - Cardizem resumed - Cont. Digoxin - Telemetry COPD - Duonebs PRN Hypothyroidism - Cont. home meds Sjogrens syndrome RA - Pt chronically on Prednisone 5mg po daily, this will be held for now - Give stress steroids and taper (2) Pacemaker infection ICD Codes: T82.7XXA - Infection and inflammatory reaction due to other cardiac and vascular devices, implants and grafts, initial encounter Status: Acute Plan: - see above (3) Atrial fibrillation ICD Codes: I48.91 - Atrial fibrillation Status: Chronic Plan: - see above (4) COPD (chronic obstructive pulmonary disease) ICD Codes: J44.9 - Chronic obstructive pulmonary disease, unspecified Status: Chronic Plan: - duonebs prn (5) Hypothyroidism ICD Codes: E03.9 - Hypothyroidism Status: Chronic Plan: - levothyroxine (6) Anxiety ICD Codes: F41.9 - Anxiety Status: Chronic (7) Rheumatoid arthritis ICD Codes: M06.9 - Rheumatoid arthritis Status: Chronic Plan: - chronic PO prednisone 5mg daily (8) Sjogren's disease ICD Codes: M35.00 - Sjogren's disease Status: Chronic Problem Qualifiers (1) Atrial fibrillation: Qualified Codes: I48.2 - Chronic atrial fibrillation (2) COPD (chronic obstructive pulmonary disease): (3) Hypothyroidism: Qualified Codes: E03.9 - Hypothyroidism, unspecified (4) Rheumatoid arthritis: (5) Sjogren's disease: Qualified Codes: M35.00 - Sicca syndrome, unspecified Toñito Duncan DO Nov 05, 2017 18:28
[2017-11-06] VITALS (27 sets, daily range): BP systolic 122–158; BP diastolic 52–76; PULSE 42–86; RESP 18–20; TEMP 97.5–98.7; O2SAT 94–100
[2017-11-06] MEDS: OXACILLIN INJ 2 GM in SODIUM CHLORIDE 0.9% INJ 100 ML IV SCH ×6 (02:18→22:18)
[2017-11-06] MEDS: CHLORHEXIDINE GLUCONATE 2 % 1 PACK (2 CLOTHS)(taper/protocol) TOPICAL SCH (03:04)
[2017-11-06] MEDS: LEVOTHYROXINE SODIUM 100 MCG TAB PO SCH (05:16)
[2017-11-06] MEDS: HEPARIN SODIUM - SQ 10,000 UNITS/ML VIAL SQ SCH ×3 (05:16→22:17)
[2017-11-06 07:54] LABS: AUTOMATED NEUTROPHIL # 5.7 TH/MM3 (1.8-7.7); BASOPHIL % 0.7 % (0.0-2.0); EOSINOPHIL # 0.1 TH/MM3 (0-0.4); EOSINOPHIL % 1.5 % (0.0-4.0); HEMATOCRIT 31.9 % (35.0-46.0); HEMOGLOBIN 10.5 GM/DL (11.6-15.3); LYMPH % 9.4 % (9.0-44.0); LYMPHOCYTE # 0.6 TH/MM3 (1.0-4.8); MEAN CELL VOLUME 78.4 FL (80.0-100.0); MEAN CORPUSCULAR HEMOGLOBIN 25.8 PG (27.0-34.0); MEAN PLATELET VOLUME 6.6 FL (7.0-11.0); MONO % 5.4 % (0.0-8.0); MONOCYTE # 0.4 TH/MM3 (0-0.9); PLATELET COUNT 335 TH/MM3 (150-450); RED BLOOD COUNT 4.07 MIL/MM3 (4.00-5.30); RED CELL DISTRIBUTION WIDTH 15.5 % (11.6-17.2); WHITE BLOOD COUNT 6.8 TH/MM3 (4.0-11.0)
[2017-11-06] MEDS: INSULIN ASPART SUPPLEMENTAL SCALE SQ SCH ×4 (08:00→19:39)
[2017-11-06 08:15] LABS: ALBUMIN 1.9 GM/DL (3.4-5.0); ALT (GPT) 10 U/L (10-53); AST (GOT) 12 U/L (15-37); BICARBONATE 35.5 MEQ/L (21.0-32.0); BLOOD UREA NITROGEN 12 MG/DL (7-18); CALCIUM 7.9 MG/DL (8.5-10.1); CHLORIDE 103 MEQ/L (98-107); CREATININE 0.75 MG/DL (0.50-1.00); GLOMERULAR FILTRATION RATE 73 ML/MIN (>89); GLUCOSE,RANDOM 84 MG/DL (74-106); MAGNESIUM 1.9 MG/DL (1.5-2.5); SODIUM (NA) 144 MEQ/L (136-145)
[2017-11-06 08:17] LABS: ALKALINE PHOSPHATASE 67 U/L (45-117); TOTAL BILIRUBIN ADULT 0.2 MG/DL (0.2-1.0); TOTAL PROTEIN 5.6 GM/DL (6.4-8.2)
[2017-11-06] MEDS: DILTIAZEM-CD 120 MG CAP ER PO SCH (08:54)
[2017-11-06] MEDS: predniSONE 5 MG TAB PO SCH (08:54)
[2017-11-06] MEDS: SODIUM CHLORIDE 0.9% FLUSH 10 ML FLUSH IV FLUSH SCH ×2 (08:55→19:38)
[2017-11-06] MEDS: ASPIRIN EC 81 MG TABEC PO SCH (08:55)
[2017-11-06] MEDS: DIGOXIN 0.125 MG TAB PO SCH (08:55)
[2017-11-06] MEDS ORDERED: SODIUM CHLORIDE 0.9% FLUSH 10 ML FLUSH IV FLUSH PRN (12:00)
[2017-11-06] MEDS: traMADol HCL 50 MG TAB PO PRN (12:54)
[2017-11-06] MEDS: PANTOPRAZOLE SODIUM 40 MG VIAL IV PUSH SCH (15:00)
--- NOTE | 2017-11-06 17:13 | HHI.PR ---
Subjective Remarks No new complaints. Objective Vitals Vital Signs Date Time Temp Pulse Resp B/P (MAP) Pulse Ox O2 Delivery O2 Flow Rate FiO2 11/06/17 16:01 52 11/06/17 15:30 97.7 58 18 123/55 (77) 100 11/06/17 15:00 55 11/06/17 14:01 56 11/06/17 13:01 59 11/06/17 12:30 97.8 66 18 125/66 (85) 100 11/06/17 12:01 68 11/06/17 11:00 57 11/06/17 10:00 66 11/06/17 09:01 97.5 69 18 122/65 (84) 100 11/06/17 09:01 100 Room Air 11/06/17 09:00 70 11/06/17 08:00 66 11/06/17 07:01 71 11/06/17 06:00 70 11/06/17 05:00 72 11/06/17 04:00 Room Air 11/06/17 04:00 98.4 60 20 141/76 (97) 97 11/06/17 04:00 68 11/06/17 03:00 75 11/06/17 02:00 79 11/06/17 01:00 77 11/06/17 00:00 86 11/06/17 00:00 98.7 86 20 141/73 (95) 100 11/05/17 22:00 85 11/05/17 20:00 83 11/05/17 20:00 98.6 83 24 104/58 (73) 100 Result Diagram: 11/06/17 0740 11/06/17 0740 Imaging Last Impressions Chest X-Ray 11/02/17 0000 Signed Impressions: Service Date/Time: Thursday, November 02, 2017 13:19 - CONCLUSION: Mild pulmonary edema. Left lower lobe atelectasis. Small left pleural effusion. No evidence of pneumothorax. Dawson Turner MD Soft Tissue Ultrasound 10/27/17 0000 Signed Impressions: Service Date/Time: Friday, October 27, 2017 17:45 - CONCLUSION: Small volume of complex fluid in the operative sites in the left chest Zurdo Starr MD Objective Remarks GENERAL: This is a well-nourished, well-developed patient, in no apparent distress. CARDIOVASCULAR: Regular rate and rhythm without murmurs, gallops, or rubs. RESPIRATORY: Clear to auscultation. Breath sounds equal bilaterally. No wheezes , rales, or rhonchi. GASTROINTESTINAL: Abdomen soft, non-tender, nondistended. Normal active bowel sounds MUSCULOSKELETAL: Extremities without clubbing, cyanosis, or edema. NEURO: Alert & Oriented x4 to person, place, time, situation. Moves all ext x4 skin: induration over pacemaker site largely resolved, LUE remains edematous A/P Problem List: (1) Sepsis ICD Codes: A41.9 - Sepsis, unspecified organism Status: Acute Plan: Sepsis Pacemaker site infection MSSA pm infection/sepsis - 87 y/o WF with RA, hx of atrial fibrillation and SSS s/p PPM, hypothyroidism, COPD, and Sjogren's syndrome. Pt recently had PPM replacement in 08/[address] Wiggins. - comgmt with CTS, ID - Her daughter reports that she noticed some pus drainage from her PPM incision x 1 day. Pt was more confused and had a fever of 101 by temporal thermometer and shaking chills. - Family was unable to lift the patient to the wheelchair and so an ambulance was called. - In the ED her temp was 104.2. Her BP has been quite low in the ED with sbp's 70s - A culture of the pus coming from the PPM incision site was taken in the ED prior to abx being given. - - Pt was given 2.5 L NS bolus in ED. stop ivf. tolerating diet. - Stress dose steroids were started for persist hypotension. bp stable. continue wean back to baseline dose - stopped zosyn 10/29 - Vancomycin stopped 10/30 - oxacillin started (10/30 - present) - Per ID, Dr. Schuler, pt will need long course of IV ABX, 6 week course - ABX end date anticipated 12/13/17 - infected PPM and leads removed by CTS (11/02/17) - repeat blood cx (11/02) --> NGTD - Blood pressure stabilized and medial care transferred back to the Hospitalist Service from [facility] 11/03/17 - PT - Case d/w Dr. Ganga DELAROSA (11/04). will place PICC 11/05/17 since blood cultures show NO growth x 3d - Repeat Blood Cx (11/02) --> NGTD - Repeat Blood Cx (11/03) --> NGTD - Anticipate d/c in next 1-2days - anticipate d/c to SNF 11/08 - DVT prophylaxis Atrial fibrillation Hx of SSS s/p PPM - Cardizem resumed - Cont. Digoxin - Telemetry COPD - Duonebs PRN Hypothyroidism - Cont. home meds Sjogrens syndrome RA - Pt chronically on Prednisone 5mg po daily, this will be held for now - Give stress steroids and taper (2) Pacemaker infection ICD Codes: T82.7XXA - Infection and inflammatory reaction due to other cardiac and vascular devices, implants and grafts, initial encounter Status: Acute Plan: - see above (3) Atrial fibrillation ICD Codes: I48.91 - Atrial fibrillation Status: Chronic Plan: - see above (4) COPD (chronic obstructive pulmonary disease) ICD Codes: J44.9 - Chronic obstructive pulmonary disease, unspecified Status: Chronic Plan: - duonebs prn (5) Hypothyroidism ICD Codes: E03.9 - Hypothyroidism Status: Chronic Plan: - levothyroxine (6) Anxiety ICD Codes: F41.9 - Anxiety Status: Chronic (7) Rheumatoid arthritis ICD Codes: M06.9 - Rheumatoid arthritis Status: Chronic Plan: - chronic PO prednisone 5mg daily (8) Sjogren's disease ICD Codes: M35.00 - Sjogren's disease Status: Chronic Problem Qualifiers (1) Atrial fibrillation: Qualified Codes: I48.2 - Chronic atrial fibrillation (2) COPD (chronic obstructive pulmonary disease): (3) Hypothyroidism: Qualified Codes: E03.9 - Hypothyroidism, unspecified (4) Rheumatoid arthritis: (5) Sjogren's disease: Qualified Codes: M35.00 - Sicca syndrome, unspecified Toñito Duncan DO Nov 06, 2017 17:13
[2017-11-06] MEDS: ALPRAZolam 0.25 MG TAB PO PRN (19:29)
[2017-11-07] VITALS (28 sets, daily range): BP systolic 126–151; BP diastolic 54–70; PULSE 40–74; RESP 18; TEMP 97.3–98.1; O2SAT 96–100
[2017-11-07] MEDS: OXACILLIN INJ 2 GM in SODIUM CHLORIDE 0.9% INJ 100 ML IV SCH ×6 (03:17→22:05)
[2017-11-07 04:32] LABS: AUTOMATED NEUTROPHIL # 4.6 TH/MM3 (1.8-7.7); BASOPHIL % 0.7 % (0.0-2.0); EOSINOPHIL # 0.1 TH/MM3 (0-0.4); EOSINOPHIL % 1.5 % (0.0-4.0); HEMATOCRIT 27.6 % (35.0-46.0); LYMPH % 12.6 % (9.0-44.0); LYMPHOCYTE # 0.7 TH/MM3 (1.0-4.8); MEAN CELL VOLUME 79.3 FL (80.0-100.0); MEAN CORPUSCULAR HEMOGLOBIN 25.9 PG (27.0-34.0); MEAN CORPUSCULAR HGB CONC 32.7 % (32.0-36.0); MONO % 7.1 % (0.0-8.0); MONOCYTE # 0.4 TH/MM3 (0-0.9); NEUT % 78.1 % (16.0-70.0); PLATELET COUNT 261 TH/MM3 (150-450); RED BLOOD COUNT 3.49 MIL/MM3 (4.00-5.30); RED CELL DISTRIBUTION WIDTH 15.7 % (11.6-17.2); WHITE BLOOD COUNT 5.9 TH/MM3 (4.0-11.0)
[2017-11-07 04:52] LABS: ALT (GPT) 11 U/L (10-53); AST (GOT) 14 U/L (15-37); BICARBONATE 33.9 MEQ/L (21.0-32.0); BLOOD UREA NITROGEN 11 MG/DL (7-18); CALCIUM 8.2 MG/DL (8.5-10.1); CHLORIDE 100 MEQ/L (98-107); CREATININE 0.62 MG/DL (0.50-1.00); GLOMERULAR FILTRATION RATE 91 ML/MIN (>89); GLUCOSE,RANDOM 74 MG/DL (74-106); PHOSPHORUS 3.8 MG/DL (2.5-4.9); SODIUM (NA) 141 MEQ/L (136-145)
[2017-11-07 04:54] LABS: ALKALINE PHOSPHATASE 62 U/L (45-117); TOTAL BILIRUBIN ADULT 0.2 MG/DL (0.2-1.0); TOTAL PROTEIN 5.7 GM/DL (6.4-8.2)
[2017-11-07] MEDS: HEPARIN SODIUM - SQ 10,000 UNITS/ML VIAL SQ SCH ×3 (05:17→22:05)
[2017-11-07] MEDS: LEVOTHYROXINE SODIUM 100 MCG TAB PO SCH (05:17)
[2017-11-07] MEDS: ASPIRIN EC 81 MG TABEC PO SCH (07:49)
[2017-11-07] MEDS: DIGOXIN 0.125 MG TAB PO SCH (07:49)
[2017-11-07] MEDS: DILTIAZEM-CD 120 MG CAP ER PO SCH (07:49)
[2017-11-07] MEDS: predniSONE 5 MG TAB PO SCH (07:49)
[2017-11-07] MEDS: SODIUM CHLORIDE 0.9% FLUSH 10 ML FLUSH IV FLUSH SCH ×3 (07:50→20:11)
[2017-11-07] MEDS: INSULIN ASPART SUPPLEMENTAL SCALE SQ SCH ×4 (08:00→20:21)
--- NOTE | 2017-11-07 13:18 | HHI.PR ---
Subjective Remarks Patient sitting up in chair with daughter at bedside no no complaints/concerns Objective Vitals Vital Signs Date Time Temp Pulse Resp B/P (MAP) Pulse Ox O2 Delivery O2 Flow Rate FiO2 11/07/17 11:30 97.3 56 18 142/66 (91) 97 11/07/17 09:46 100 Nasal Cannula 2.00 11/07/17 08:30 97.4 58 18 147/70 (95) 100 11/07/17 08:30 100 Room Air 11/07/17 07:01 55 11/07/17 05:57 48 11/07/17 05:00 47 11/07/17 04:00 52 11/07/17 04:00 98.0 52 18 137/59 (85) 96 11/07/17 04:00 Nasal Cannula 2.00 11/07/17 03:00 54 11/07/17 02:00 48 11/07/17 01:00 43 11/07/17 00:00 40 11/07/17 00:00 98.1 40 18 126/57 (80) 99 11/07/17 00:00 Nasal Cannula 2.00 11/06/17 23:00 42 11/06/17 22:00 43 11/06/17 21:00 48 11/06/17 20:00 50 11/06/17 20:00 Nasal Cannula 2.00 11/06/17 20:00 98.3 50 18 158/52 (87) 94 11/06/17 18:00 58 11/06/17 17:27 100 Nasal Cannula 2.00 11/06/17 17:00 52 11/06/17 16:01 52 11/06/17 15:30 97.7 58 18 123/55 (77) 100 11/06/17 15:00 55 11/06/17 14:01 56 11/07/17 11/07/17 11/08/17 15:00 23:00 07:00 Intake Total 100 ml Balance 100 ml IV Total 100 ml Result Diagram: 11/07/1733711/07/17337 Other Results Laboratory Tests Test 11/05/17 04:05 11/06/17 07:40 11/07/17 03:38 White Blood Count 7.5 TH/MM3 6.8 TH/MM3 5.9 TH/MM3 Red Blood Count 4.42 MIL/MM3 4.07 MIL/MM3 3.49 MIL/MM3 Hemoglobin 11.4 GM/DL 10.5 GM/DL 9.0 GM/DL Hematocrit 34.9 % 31.9 % 27.6 % Mean Corpuscular Volume 79.0 FL 78.4 FL 79.3 FL Mean Corpuscular Hemoglobin 25.7 PG 25.8 PG 25.9 PG Mean Corpuscular Hemoglobin Concent 32.6 % 33.0 % 32.7 % Red Cell Distribution Width 15.7 % 15.5 % 15.7 % Platelet Count 298 TH/MM3 335 TH/MM3 261 TH/MM3 Mean Platelet Volume 7.2 FL 6.6 FL 7.0 FL Neutrophils (%) (Auto) 84.7 % 83.0 % 78.1 % Lymphocytes (%) (Auto) 7.7 % 9.4 % 12.6 % Monocytes (%) (Auto) 5.5 % 5.4 % 7.1 % Eosinophils (%) (Auto) 1.6 % 1.5 % 1.5 % Basophils (%) (Auto) 0.5 % 0.7 % 0.7 % Neutrophils # (Auto) 6.4 TH/MM3 5.7 TH/MM3 4.6 TH/MM3 Lymphocytes # (Auto) 0.6 TH/MM3 0.6 TH/MM3 0.7 TH/MM3 Monocytes # (Auto) 0.4 TH/MM3 0.4 TH/MM3 0.4 TH/MM3 Eosinophils # (Auto) 0.1 TH/MM3 0.1 TH/MM3 0.1 TH/MM3 Basophils # (Auto) 0.0 TH/MM3 0.0 TH/MM3 0.0 TH/MM3 CBC Comment DIFF FINAL DIFF FINAL DIFF FINAL Differential Comment Blood Urea Nitrogen 10 MG/DL 12 MG/DL 11 MG/DL Creatinine 0.60 MG/DL 0.75 MG/DL 0.62 MG/DL Random Glucose 81 MG/DL 84 MG/DL 74 MG/DL Total Protein 6.7 GM/DL 5.6 GM/DL 5.7 GM/DL Albumin 2.2 GM/DL 1.9 GM/DL 2.0 GM/DL Calcium Level 8.7 MG/DL 7.9 MG/DL 8.2 MG/DL Phosphorus Level 3.3 MG/DL 3.0 MG/DL 3.8 MG/DL Magnesium Level 2.0 MG/DL 1.9 MG/DL 2.0 MG/DL Alkaline Phosphatase 71 U/L 67 U/L 62 U/L Aspartate Amino Transf (AST/SGOT) 13 U/L 12 U/L 14 U/L Alanine Aminotransferase (ALT/SGPT) 9 U/L 10 U/L 11 U/L Total Bilirubin 0.2 MG/DL 0.2 MG/DL 0.2 MG/DL Sodium Level 144 MEQ/L 144 MEQ/L 141 MEQ/L Potassium Level 4.0 MEQ/L 3.8 MEQ/L 3.8 MEQ/L Chloride Level 101 MEQ/L 103 MEQ/L 100 MEQ/L Carbon Dioxide Level 33.1 MEQ/L 35.5 MEQ/L 33.9 MEQ/L Anion Gap 10 MEQ/L 6 MEQ/L 7 MEQ/L Estimat Glomerular Filtration Rate 95 ML/MIN 73 ML/MIN 91 ML/MIN Imaging Last Impressions Chest X-Ray 11/02/17 0000 Signed Impressions: Service Date/Time: Thursday, November 02, 2017 13:19 - CONCLUSION: Mild pulmonary edema. Left lower lobe atelectasis. Small left pleural effusion. No evidence of pneumothorax. Dawson Turner MD Soft Tissue Ultrasound 10/27/17 0000 Signed Impressions: Service Date/Time: Friday, October 27, 2017 17:45 - CONCLUSION: Small volume of complex fluid in the operative sites in the left chest Zurdo Starr MD Objective Remarks GENERAL: This is a thin frail elderly 87 year old female patient, in no apparent distress. CARDIOVASCULAR: Bradycardic RESPIRATORY: Clear to auscultation. Breath sounds equal bilaterally. GASTROINTESTINAL: Abdomen soft, non-tender, nondistended. Normal active bowel sounds MUSCULOSKELETAL: Extremities without clubbing, cyanosis, or edema. NEURO: Awakes to voice drifts off to sleep during conversation. Moves all ext x4 SKIN: induration over pacemaker site largely resolved, LUE remains edematous A/P Problem List: (1) Sepsis ICD Codes: A41.9 - Sepsis, unspecified organism Status: Acute Plan: Sepsis Pacemaker site infection MSSA pm infection/sepsis - 87 y/o WF with RA, hx of atrial fibrillation and SSS s/p PPM, hypothyroidism, COPD, and Sjogren's syndrome. Pt recently had PPM replacement in 08/[address] Wiggins. - comgmt with CTS, ID - Her daughter reports that she noticed some pus drainage from her PPM incision x 1 day. Pt was more confused and had a fever of 101 by temporal thermometer and shaking chills. - Family was unable to lift the patient to the wheelchair and so an ambulance was called. - In the ED her temp was 104.2. Her BP has been quite low in the ED with sbp's 70s - A culture of the pus coming from the PPM incision site was taken in the ED prior to abx being given. - - Pt was given 2.5 L NS bolus in ED. stop ivf. tolerating diet. - Stress dose steroids were started for persist hypotension. bp stable. continue wean back to baseline dose - stopped zosyn 10/29 - Vancomycin stopped 10/30 - oxacillin started (10/30 - present) - Per ID, Dr. Schuler, pt will need long course of IV ABX, 6 week course - ABX end date anticipated 12/13/17 - infected PPM and leads removed by CTS (11/02/17) - repeat blood cx (11/02) --> NGTD - Blood pressure stabilized and medial care transferred back to the Hospitalist Service from [facility] 11/03/17 - PT - Case d/w ID, Dr. Schuler (11/04). If repeat cultures remain negative, then will place PICC 11/05/17 - Repeat Blood Cx (11/02) --> NGTD - Repeat Blood Cx (11/03) --> NGTD - Anticipate d/c in next 1-2 days - anticipate d/c to SNF - DVT prophylaxis Atrial fibrillation Hx of SSS s/p PPM - Cardizem resumed then patient became bradycardic HR 40 - 55 through the night. - DC Cardizem 120 mg daily and start Cardizem 30 mg Q8H - Cont. Digoxin - Telemetry COPD - Duonebs PRN Hypothyroidism - Cont. home meds Sjogrens syndrome RA - Pt chronically on Prednisone 5mg po daily, this will be held for now - Give stress steroids and taper will consult palliative care for assistance to clarify goals of care (2) Pacemaker infection ICD Codes: T82.7XXA - Infection and inflammatory reaction due to other cardiac and vascular devices, implants and grafts, initial encounter Status: Acute Plan: - see above (3) Atrial fibrillation ICD Codes: I48.91 - Atrial fibrillation Status: Chronic Plan: - see above (4) COPD (chronic obstructive pulmonary disease) ICD Codes: J44.9 - Chronic obstructive pulmonary disease, unspecified Status: Chronic Plan: - duonebs prn (5) Hypothyroidism ICD Codes: E03.9 - Hypothyroidism Status: Chronic Plan: - levothyroxine (6) Anxiety ICD Codes: F41.9 - Anxiety Status: Chronic (7) Rheumatoid arthritis ICD Codes: M06.9 - Rheumatoid arthritis Status: Chronic Plan: - chronic PO prednisone 5mg daily (8) Sjogren's disease ICD Codes: M35.00 - Sjogren's disease Status: Chronic Assessment and Plan Patient examined. Assessment and plan formulated with Eden Anna PA-C. I agree with the above. Pt periodically with sustained bradycardia. Change Cardizem CD to short acting cardizem 30mg TID. Observe on telemetry. Pt appear very weak and fatigued. Pt sitting in chair and readily falls asleep. Daughter updated at bedside. Continue IV recommendations per ID Obtain Palliative Consult for clarification of goals. Problem Qualifiers (1) Atrial fibrillation: Qualified Codes: I48.2 - Chronic atrial fibrillation (2) COPD (chronic obstructive pulmonary disease): (3) Hypothyroidism: Qualified Codes: E03.9 - Hypothyroidism, unspecified (4) Rheumatoid arthritis: (5) Sjogren's disease: Qualified Codes: M35.00 - Sicca syndrome, unspecified Eden Anna Nov 07, 2017 13:18 Toñito Duncan DO Nov 07, 2017 13:41
[2017-11-07] MEDS: PANTOPRAZOLE SODIUM 40 MG VIAL IV PUSH SCH (15:24)
[2017-11-07] MEDS: ALPRAZolam 0.25 MG TAB PO PRN (20:09)
[2017-11-08] VITALS (29 sets, daily range): BP systolic 126–169; BP diastolic 44–76; PULSE 48–70; RESP 18–20; TEMP 97.1–98.4; O2SAT 96–100
[2017-11-08] MEDS: OXACILLIN INJ 2 GM in SODIUM CHLORIDE 0.9% INJ 100 ML IV SCH ×6 (03:25→22:13)
[2017-11-08] MEDS: HEPARIN SODIUM - SQ 10,000 UNITS/ML VIAL SQ SCH ×3 (05:15→22:14)
[2017-11-08] MEDS: LEVOTHYROXINE SODIUM 100 MCG TAB PO SCH (05:15)
[2017-11-08] MEDS: INSULIN ASPART SUPPLEMENTAL SCALE SQ SCH (08:00)
[2017-11-08] MEDS: DILTIAZEM HCL 30 MG TAB PO SCH ×2 (09:00→17:00)
--- NOTE | 2017-11-08 09:37 | HHI.PR ---
Subjective Remarks was hypoglycemic this AM. Objective Vitals nsr on monitor reg lung cta abd s/nt ext no pitting. Vital Signs Date Time Temp Pulse Resp B/P (MAP) Pulse Ox O2 Delivery O2 Flow Rate FiO2 11/08/17 08:36 97.6 59 18 169/74 (105) 100 11/08/17 08:36 100 Nasal Cannula 2.00 11/08/17 06:00 55 11/08/17 05:00 54 11/08/17 04:00 98.4 56 18 165/76 (105) 98 11/08/17 04:00 Nasal Cannula 2.00 11/08/17 04:00 56 11/08/17 03:00 54 11/08/17 02:00 50 11/08/17 01:00 51 11/08/17 00:00 98.2 48 18 126/55 (78) 97 11/08/17 00:00 48 11/07/17 23:00 52 11/07/17 22:00 49 11/07/17 21:00 52 11/07/17 20:00 50 11/07/17 20:00 Nasal Cannula 2.00 11/07/17 20:00 98.0 50 18 143/54 (83) 98 11/07/17 18:00 66 11/07/17 17:16 96 Nasal Cannula 2.00 11/07/17 17:00 54 11/07/17 16:01 54 11/07/17 15:30 98.1 61 18 151/56 (87) 96 11/07/17 15:00 52 11/07/17 14:01 56 11/07/17 13:00 52 11/07/17 12:00 74 11/07/17 11:30 97.3 56 18 142/66 (91) 97 11/07/17 11:00 50 11/07/17 10:00 56 11/07/17 09:46 100 Nasal Cannula 2.00 Result Diagram: 11/07/178 11/07/17337 Imaging Last Impressions Chest X-Ray 11/02/17 0000 Signed Impressions: Service Date/Time: Thursday, November 02, 2017 13:19 - CONCLUSION: Mild pulmonary edema. Left lower lobe atelectasis. Small left pleural effusion. No evidence of pneumothorax. Dawson Turner MD Soft Tissue Ultrasound 10/27/17 0000 Signed Impressions: Service Date/Time: Friday, October 27, 2017 17:45 - CONCLUSION: Small volume of complex fluid in the operative sites in the left chest Zurdo Starr MD A/P Problem List: (1) Sepsis ICD Codes: A41.9 - Sepsis, unspecified organism Status: Acute Plan: Sepsis Pacemaker site infection MSSA pm infection/sepsis - 87 y/o WF with RA, hx of atrial fibrillation and SSS s/p PPM, hypothyroidism, COPD, and Sjogren's syndrome. Pt recently had PPM replacement in 08/[address] Wiggins. - comgmt with CTS, ID - Her daughter reports that she noticed some pus drainage from her PPM incision x 1 day. Pt was more confused and had a fever of 101 by temporal thermometer and shaking chills. - Family was unable to lift the patient to the wheelchair and so an ambulance was called. - In the ED her temp was 104.2. Her BP has been quite low in the ED with sbp's 70s - A culture of the pus coming from the PPM incision site was taken in the ED prior to abx being given. - - Pt was given 2.5 L NS bolus in ED. stop ivf. tolerating diet. - Stress dose steroids were started for persist hypotension. bp stable. continue wean back to baseline dose - stopped zosyn 10/29 - Vancomycin stopped 10/30 - oxacillin started (10/30 - present) - Per ID, Dr. Schuler, pt will need long course of IV ABX, 6 week course - ABX end date anticipated 12/13/17 - infected PPM and leads removed by CTS (11/02/17) - repeat blood cx (11/02) --> NGTD - Blood pressure stabilized and medial care transferred back to the Hospitalist Service from [facility] 11/03/17 - PT - Case d/w Dr. Ganga DELAROSA (11/04). will place PICC 11/05/17 since blood cultures show NO growth - Repeat Blood Cx (11/02) --> NGTD - Repeat Blood Cx (11/03) --> NGTD Discussed with ID..with plan to d/c on oxacillin q4hrs. consult CM. arrange snf placement. monitor her heart rate and rhythm over next 24 hrs to assure stable on current diltiazem dosing. tachy/sang issues over the weekend. Atrial fibrillation Hx of SSS s/p PPM - Cardizem resumed. see above - Telemetry COPD - Duonebs PRN Hypothyroidism - Cont. home meds Sjogrens syndrome RA - Pt chronically on Prednisone 5mg po daily, - Given stress steroids (2) Pacemaker infection ICD Codes: T82.7XXA - Infection and inflammatory reaction due to other cardiac and vascular devices, implants and grafts, initial encounter Status: Acute Plan: - see above (3) Atrial fibrillation ICD Codes: I48.91 - Atrial fibrillation Status: Chronic Plan: - see above (4) COPD (chronic obstructive pulmonary disease) ICD Codes: J44.9 - Chronic obstructive pulmonary disease, unspecified Status: Chronic Plan: - duonebs prn (5) Hypothyroidism ICD Codes: E03.9 - Hypothyroidism Status: Chronic Plan: - levothyroxine (6) Anxiety ICD Codes: F41.9 - Anxiety Status: Chronic (7) Rheumatoid arthritis ICD Codes: M06.9 - Rheumatoid arthritis Status: Chronic Plan: - chronic PO prednisone 5mg daily (8) Sjogren's disease ICD Codes: M35.00 - Sjogren's disease Status: Chronic Problem Qualifiers (1) Atrial fibrillation: Qualified Codes: I48.2 - Chronic atrial fibrillation (2) COPD (chronic obstructive pulmonary disease): (3) Hypothyroidism: Qualified Codes: E03.9 - Hypothyroidism, unspecified (4) Rheumatoid arthritis: (5) Sjogren's disease: Qualified Codes: M35.00 - Sicca syndrome, unspecified Deepak Infante MD Nov 08, 2017 09:37
[2017-11-08] MEDS: SODIUM CHLORIDE 0.9% FLUSH 10 ML FLUSH IV FLUSH SCH ×3 (09:51→22:13)
[2017-11-08] MEDS: ASPIRIN EC 81 MG TABEC PO SCH (09:51)
[2017-11-08] MEDS: predniSONE 5 MG TAB PO SCH (09:52)
[2017-11-08] MEDS: DIGOXIN 0.125 MG TAB PO SCH (09:52)
--- NOTE | 2017-11-08 10:31 | HHI.IDPN ---
Subjective Subjective Remarks Patient is an 87-year-old female, brought into the hospital for further evaluation of fever and confusion. Patient has sick sinus syndrome and had her pacemaker placed originally in 2009. In August she underwent replacement of the generator. The day prior to admission she apparently was noted to have some purulent drainage coming out of her incision. On the day of admission she was very confused and had a fever with some shaking chills. She was brought into the hospital for further evaluation and treatment. In the emergency room her temperature was up to 104. Patient remains confused. There was no mention of any other symptom as far as respiratory complaint, nausea or vomiting. Was no mention of any problem with urination, or any diarrhea. In the ED she had some hypotension, and received normal saline with improvement of her hemodynamics. Her WBC was 11,000 yesterday, and is down to normal. Her temperatures are better. Cardiothoracic surgery has been consulted for explantation of her pacemaker. Infectious disease consultation has been requested to evaluate the patient. Notes reviewed Had explantation of the pacemaker and removal of the leads November 02 Temps ok BP ok Had some HR less than 50 Denies any chest pain or palpitations Not short of breath, Last (+) BC from 10/30 Admission blood culture and wound culture with MSSA Vent lead C/S negative Atrial lead C/S negative Pacer pocket with Staph Antibiotics Oxacillin Current Medications Medications (Trade) Dose Ordered Sig/Keshawn Route Start Time Stop Time Status Last Admin (Duoneb Neb) 1 ampule Q2HR NEB PRN NEB 10/27/17 15:00 11/02/17 14:13 (Tylenol) 650 mg Q4H PRN PO 10/27/17 15:00 10/30/17 19:50 (Zofran Inj) 4 mg Q6H PRN IV 10/27/17 15:00 (Ecotrin Ec) 81 mg DAILY PO 10/28/17 09:00 11/08/17 09:51 (Lanoxin) 0.125 mg DAILY PO 10/28/17 09:00 11/08/17 09:52 (Synthroid) 100 mcg DAILY@0600 PO 10/28/17 06:00 11/08/17 05:15 (Tears Naturale Opth Soln) 1 drop Q4H PRN EACH EYE 10/28/17 08:30 4/19/18 18:45 (D50w (Vial) Inj) 50 ml UNSCH PRN IV PUSH 10/29/17 17:15 Oxacillin Sodium 2 gm/Sodium Chloride 100 ml @ 200 mls/hr Q4H IV 10/30/17 11:00 11/08/17 05:55 (Deltasone) 5 mg DAILY PO 11/01/17 09:00 11/08/17 09:52 (Ultram) 50 mg Q8H PRN PO 10/31/17 14:45 11/06/17 12:54 Miscellaneous Information Patient in critical care unit? Ass... Q361D .XX 11/01/17 19:15 11/01/17 19:15 (Milk Of Deena Liq) 30 ml Q6H PRN PO 11/02/17 12:30 (NS Flush) 2 ml BID IV FLUSH 11/02/17 21:00 11/08/17 09:51 (NS Flush) 2 ml UNSCH PRN IV FLUSH 11/02/17 12:30 (Lopressor Inj) 5 mg Q6H PRN IV PUSH 11/02/17 15:45 11/05/17 08:39 (Heparin Inj) 5,000 units Q8HR SQ 11/03/17 06:00 11/08/17 05:15 (NS Flush) See Protocol DAILY IV FLUSH 11/07/17 09:00 11/08/17 09:51 (NS Flush) See Protocol UNSCH PRN IV FLUSH 11/06/17 12:00 (Heparin Central Flush) See Protocol DAILY IV FLUSH 11/07/17 09:00 11/08/17 09:52 (Heparin Central Flush) See Protocol UNSCH PRN IV FLUSH 11/06/17 12:00 (NS Flush) UNSCH PRN IV FLUSH 11/06/17 12:00 (Xanax) 0.25 mg Q6H PRN PO 11/06/17 14:00 11/07/17 20:09 (Cardizem) 30 mg Q8H PO 11/08/17 09:00 (Protonix) 40 mg DAILY PO 11/09/17 09:00 Lines PICC with no evidence of infection Past Medical History COPD Hypothyroidism RA Sjgren's syndrome Atrial fibrillation SSS s/p PPM Anxiety GERD HTN 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 Past Surgical History PPM replacement in 08/2017 Appendectomy Cholecystectomy WAYLON with BSO Bilateral knee replacement Right hip arthroplasty [facility] in 2011 Allergies: Coded Allergies: NSAIDS (Non-Steroidal Anti-Inflamma (Verified Allergy, Severe, Shortness of Breath, 10/27/17) cephalexin (Unverified Allergy, Severe, HIVES, 10/27/17) diclofenac (Unverified Allergy, Severe, Itching, 10/27/17) etodolac (Unverified Allergy, Severe, Itching, 10/27/17) flurbiprofen (Unverified Allergy, Severe, Itching, 10/27/17) ibuprofen (Unverified Allergy, Severe, Itching, 10/27/17) indomethacin (Unverified Allergy, Severe, Itching, 10/27/17) ketoprofen (Unverified Allergy, Severe, Itching, 10/27/17) ketorolac (Unverified Allergy, Severe, Itching, 10/27/17) naproxen (Unverified Allergy, Severe, Itching, 10/27/17) oxaprozin (Unverified Allergy, Severe, Itching, 10/27/17) Uncoded Allergies: ANTIINFLAMATORY (Allergy, Severe, ITCHING, 09/16/14) Objective . Vital Signs Date Time Temp Pulse Resp B/P (MAP) Pulse Ox O2 Delivery O2 Flow Rate FiO2 11/08/17 08:36 97.6 59 18 169/74 (105) 100 11/08/17 08:36 100 Nasal Cannula 2.00 11/08/17 06:00 55 11/08/17 05:00 54 11/08/17 04:00 98.4 56 18 165/76 (105) 98 11/08/17 04:00 Nasal Cannula 2.00 11/08/17 04:00 56 11/08/17 03:00 54 11/08/17 02:00 50 11/08/17 01:00 51 11/08/17 00:00 98.2 48 18 126/55 (78) 97 11/08/17 00:00 48 11/07/17 23:00 52 11/07/17 22:00 49 11/07/17 21:00 52 11/07/17 20:00 50 11/07/17 20:00 Nasal Cannula 2.00 11/07/17 20:00 98.0 50 18 143/54 (83) 98 11/07/17 18:00 66 11/07/17 17:16 96 Nasal Cannula 2.00 11/07/17 17:00 54 11/07/17 16:01 54 11/07/17 15:30 98.1 61 18 151/56 (87) 96 11/07/17 15:00 52 11/07/17 14:01 56 11/07/17 13:00 52 11/07/17 12:00 74 11/07/17 11:30 97.3 56 18 142/66 (91) 97 11/07/17 11:00 50 . Laboratory Tests Test 11/07/17 03:38 White Blood Count 5.9 TH/MM3 Red Blood Count 3.49 MIL/MM3 Hemoglobin 9.0 GM/DL Hematocrit 27.6 % Mean Corpuscular Volume 79.3 FL Mean Corpuscular Hemoglobin 25.9 PG Mean Corpuscular Hemoglobin Concent 32.7 % Red Cell Distribution Width 15.7 % Platelet Count 261 TH/MM3 Mean Platelet Volume 7.0 FL Neutrophils (%) (Auto) 78.1 % Lymphocytes (%) (Auto) 12.6 % Monocytes (%) (Auto) 7.1 % Eosinophils (%) (Auto) 1.5 % Basophils (%) (Auto) 0.7 % Neutrophils # (Auto) 4.6 TH/MM3 Lymphocytes # (Auto) 0.7 TH/MM3 Monocytes # (Auto) 0.4 TH/MM3 Eosinophils # (Auto) 0.1 TH/MM3 Basophils # (Auto) 0.0 TH/MM3 CBC Comment DIFF FINAL Differential Comment Laboratory Tests Test 11/07/17 03:38 Blood Urea Nitrogen 11 MG/DL Creatinine 0.62 MG/DL Random Glucose 74 MG/DL Total Protein 5.7 GM/DL Albumin 2.0 GM/DL Calcium Level 8.2 MG/DL Phosphorus Level 3.8 MG/DL Magnesium Level 2.0 MG/DL Alkaline Phosphatase 62 U/L Aspartate Amino Transf (AST/SGOT) 14 U/L Alanine Aminotransferase (ALT/SGPT) 11 U/L Total Bilirubin 0.2 MG/DL Sodium Level 141 MEQ/L Potassium Level 3.8 MEQ/L Chloride Level 100 MEQ/L Carbon Dioxide Level 33.9 MEQ/L Anion Gap 7 MEQ/L Estimat Glomerular Filtration Rate 91 ML/MIN Imaging Last Impressions Chest X-Ray 10/28/17 0600 Signed Impressions: Service Date/Time: October 04:27 - CONCLUSION: Mild left base atelectasis. Zurdo Woodard MD Soft Tissue Ultrasound 10/27/17 0000 Signed Impressions: Service Date/Time: Friday, October 27, 2017 17:45 - CONCLUSION: Small volume of complex fluid in the operative sites in the left chest Zurdo Starr MD Physical Exam GENERAL: awake and alert, not in respiratory distress. Up in chair SKIN: Cool and dry. No generalized rash, no ecchymoses and no evidence of embolic lesions. HEAD: Atraumatic. Normocephalic. No temporal wasting, or tenderness. EYES: [place] conjunctiva. No petechia or hemorrhage. Pupils equal, round and reactive to light. Extraocular movements full and intact. No scleral icterus. No injection or drainage. EARS, NOSE AND THROAT: Nose without bleeding or purulent nasal discharge. Moist oral mucosa, she is edentulous. NECK: Trachea midline. Supple and not tender, no meningeal signs CARDIOVASCULAR: Regular rate and rhythm. No murmurs, rubs or gallops heard. Has a dry dressing over her previous pacemaker site. RESPIRATORY: Clear to auscultation. Breath sounds equal bilaterally. No rales , wheezing or rhonchi. Decreased breath sounds at the bases. ABDOMEN: Soft, non-tender, nondistended. Bowel sounds present and normoactive. No guarding. No rebound. No organomegaly. EXTREMITIES: No clubbing, cyanosis, or edema. Has deformities in all her fingers C/W her Hx RA. No calf tenderness. Well perfused and warm. NEUROLOGICAL: Awake and alert. No facial asymmetry. Moves all her extremities. PSYCHIATRIC: Normal affect, calm and cooperative. Confused LINE: No evidence of infection Assessment & Plan Remarks IMPRESSION MSSA sepsis, due to infected pacemaker -Status post removal of pacemaker, and leads Atrial fib with RVR - now in NSR Pacemaker infection SSS, S/P pacemaker 2009, exchange Aug 2017 Hx RA and Sjogren Encephalopathy due to sepsis RECOMMENDATION Continue IV Oxacillin She will need a long course of IV Abx - plan 6 weeks IV Abx from date of pacer removal - anticipated end date December 13 Monitor clinical progress I will fill out Abx for D/W Dr Wiggins D/W Edwige Gillette MD Nov 08, 2017 10:31
--- NOTE | 2017-11-08 10:33 | HHI.FF ---
Edwige Schuler MD 11/08/17 1033: Infusion Therapy Location of Infusion Therapy: [facility] Infusion Therapy Order Patient Information Patient Weight 53.3 kg Diagnosis: Diagnosis MSSA sepsis, infection pacer, S/P removal pacer and leads 11/02 Coded Allergies: NSAIDS (Non-Steroidal Anti-Inflamma (Verified Allergy, Severe, Shortness of Breath, 10/27/17) cephalexin (Unverified Allergy, Severe, HIVES, 10/27/17) diclofenac (Unverified Allergy, Severe, Itching, 10/27/17) etodolac (Unverified Allergy, Severe, Itching, 10/27/17) flurbiprofen (Unverified Allergy, Severe, Itching, 10/27/17) ibuprofen (Unverified Allergy, Severe, Itching, 10/27/17) indomethacin (Unverified Allergy, Severe, Itching, 10/27/17) ketoprofen (Unverified Allergy, Severe, Itching, 10/27/17) ketorolac (Unverified Allergy, Severe, Itching, 10/27/17) naproxen (Unverified Allergy, Severe, Itching, 10/27/17) oxaprozin (Unverified Allergy, Severe, Itching, 10/27/17) Uncoded Allergies: ANTIINFLAMATORY (Allergy, Severe, ITCHING, 09/16/14) Administer Medication Oxacillin 2 gm IV q4H Stop Treatment: Dec 13, 2017 Additional Information Venous access: PICC Line Additional Instructions [x] Peripheral flush and dressing changes per protocol [x] Implanted port and central underliner: * Implanted port: 10 ml Normal Saline followed by 5 ml Heparin 100 units/ml Heparin flush after each use and monthly to maintain. [] May leave port accessed during therapy. [] May leave peripheral site accessed for duration of therapy. [x] If patient has SOB or respiratory distress, check oxygen saturation. If less than 90% or clinical signs of respiratory distress, administer oxygen at 2 L/min. via nasal cannula and notify physician. [x] Anaphylaxis/Reaction orders: * Stop infusion. * Keep IV line open with saline flush. * Notify physician. * Monitor vital signs every 15 minutes until symptoms resolve. * Check Oxygen saturation; Oxygen at 2 L/min. via nasal cannula if less than 90% or clinical signs of respiratory distress. * Administer diphenhydramine (Benadryl) 25 mg IV STAT, (unless patient has received as pre-med). May repeat once, if necessary. * Solu-Cortef 250 mg IVP over 30-60 seconds, use 100 mg vials for each dissolution. * Epinephrine (1mg/1 ml) 0.3 mg subcutaneously or IVP now with any signs of respiratory distress. * Check with physician for new additional pre-med orders if patient is re- challenged or re-treated. [x] May remove PICC line when treatment complete, after confirming with Physician. [x] If the patient is admitted to the hospital, the ED, or transferred via [facility] , complete transfer form including medication reconciliation order sheet. Laboratory Tests Weekly Labs: CBC w/diff, Creatinine, LFT's (Hepatic function test) (Labs every Wednesday while on IV Oxacillin) Deepak Infante MD 11/09/17 0819: Infusion Therapy Location of Infusion Therapy: [facility] Infusion Therapy Order Patient Information Coded Allergies: NSAIDS (Non-Steroidal Anti-Inflamma (Verified Allergy, Severe, Shortness of Breath, 10/27/17) cephalexin (Unverified Allergy, Severe, HIVES, 10/27/17) diclofenac (Unverified Allergy, Severe, Itching, 10/27/17) etodolac (Unverified Allergy, Severe, Itching, 10/27/17) flurbiprofen (Unverified Allergy, Severe, Itching, 10/27/17) ibuprofen (Unverified Allergy, Severe, Itching, 10/27/17) indomethacin (Unverified Allergy, Severe, Itching, 10/27/17) ketoprofen (Unverified Allergy, Severe, Itching, 10/27/17) ketorolac (Unverified Allergy, Severe, Itching, 10/27/17) naproxen (Unverified Allergy, Severe, Itching, 10/27/17) oxaprozin (Unverified Allergy, Severe, Itching, 10/27/17) Uncoded Allergies: ANTIINFLAMATORY (Allergy, Severe, ITCHING, 09/16/14) Edwige Schuler MD Nov 08, 2017 10:33 Deepak Infante MD November 09, 2017 08:19
--- NOTE | 2017-11-08 12:12 | PD.CAR.PN ---
CVT Progress Note Subjective/Hospital Course: An 87-year-old female, patient of Dr. Rick Zarate, Dr. Calvin Fisher, and Dr. Wiggins, history of symptomatic bradycardia, previous pacer that had a generator change out on 09/01/[address] Wiggins, [employer]otron[employer] device. Per the notes, the daughter had reported increased confusion from her baseline and also some pus draining from the pacemaker site prior to admission. Fever was about 101. They normally are able to get her up in a wheelchair, but they were unable to lift her, so they called in [facility]. Temperature in the ED was 104.2. Blood pressure was also very low with systolic blood pressures in the 80s. She did receive IV fluids. The culture from the pacemaker site showed Staph aureus in the wound culture and also the blood cultures x 4 bottles were positive for Staph aureus. She is currently on vancomycin and Zosyn. We were consulted by Dr. Wiggins for device removal. 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 She has just had a recent generator pacemaker change out 08/2017, Biotronik device. Dementia 11/01 no new complaints for surgery in am to remove pacer device and leads 11/02 surgery: Pacemaker removal and lead extraction Capsulectomy Fluoroscopy 11/03 pt became hypotensive last pm , requiring additional colloids went into Afib RVR/ rate now controlled Dr Wiggins to follow NEY drain 40cc/ 12 hrs , eval for removal in am pt need to be OOB / PT/OT 11/04 NEY drain dc without difficulty leave upper left incision open to air pt need to be OOB in chair/ will see prn 11/08 left upper chest wall incision intact and well approximated ney site healing well , Objective: GENERAL: SKIN: Warm and dry. incisions as above HEAD: Normocephalic. EYES: No scleral icterus. No injection or drainage. NECK: Supple, trachea midline. No JVD or lymphadenopathy. CARDIOVASCULAR: Regular rate and rhythm without murmurs, gallops, or rubs. RESPIRATORY: Breath sounds equal bilaterally. No accessory muscle use. GASTROINTESTINAL: Abdomen soft, non-tender, nondistended. MUSCULOSKELETAL: No cyanosis, or edema. BACK: Nontender without obvious deformity. No CVA tenderness. Vital Signs Date Time Temp Pulse Resp B/P (MAP) Pulse Ox O2 Delivery O2 Flow Rate FiO2 11/08/17 11:44 97.1 69 20 157/76 (103) 97 11/08/17 08:36 97.6 59 18 169/74 (105) 100 11/08/17 08:36 100 Nasal Cannula 2.00 11/08/17 06:00 55 11/08/17 05:00 54 11/08/17 04:00 98.4 56 18 165/76 (105) 98 11/08/17 04:00 Nasal Cannula 2.00 11/08/17 04:00 56 11/08/17 03:00 54 11/08/17 02:00 50 11/08/17 01:00 51 11/08/17 00:00 98.2 48 18 126/55 (78) 97 11/08/17 00:00 48 11/07/17 23:00 52 11/07/17 22:00 49 11/07/17 21:00 52 11/07/17 20:00 50 11/07/17 20:00 Nasal Cannula 2.00 11/07/17 20:00 98.0 50 18 143/54 (83) 98 11/07/17 18:00 66 11/07/17 17:16 96 Nasal Cannula 2.00 11/07/17 17:00 54 11/07/17 16:01 54 11/07/17 15:30 98.1 61 18 151/56 (87) 96 11/07/17 15:00 52 11/07/17 14:01 56 11/07/17 13:00 52 Result Diagram: 11/07/17 0338 11/07/17 0338 (1) Pacemaker infection Plan: s/p Pacemaker removal and lead extraction Capsulectomy Fluoroscopy incisions intact and healing well will sign off (2) Sjogren's disease (3) COPD (chronic obstructive pulmonary disease) (4) Atrial fibrillation Problem Qualifiers (1) Sjogren's disease: Qualified Codes: M35.00 - Sicca syndrome, unspecified (2) COPD (chronic obstructive pulmonary disease): (3) Atrial fibrillation: Qualified Codes: I48.2 - Chronic atrial fibrillation Meagan Pichardo Nov 08, 2017 12:12
--- NOTE | 2017-11-08 14:38 | PD.CONS ---
Consult Service Palliative Care Consult Requested By Shoshana BARRIENTOS . Primary Care Physician Rick Zarate MD . Reason for Consultation a. To assist with evaluation and management of symptoms including: Encephalopathy, progressive weakness b. To assist medical decision maker(s) with: better understanding of current medical conditions; weighing benefits/burdens of medical treatment options; making medical treatment decisions. . HPI History of Present Illness This recently turned 87-year-old female, with a past history of COPD, CHF, paroxysmal atrial fibrillation, rheumatoid arthritis and Sjogren's syndrome on chronic prednisone therapy, and chronic anemia, underwent a replacement of her pacemaker generator on 09/01/17. In mid October, the family noticed a little redness over the pacemaker site, and on 10/27/17 the patient developed worsening redness, fever, worsened confusion, and some drainage from the site. She presented to the emergency department for further evaluation on 10/27/17. In the emergency department, findings included: * Confusion, weakness * Temp 104.2, pulse 87, respirations 21, blood pressure 91/66, oxygen saturation 100% on room air * White count 11.8, hemoglobin 11.6 * Lactic acid 1.7 * Urinalysis negative * Chest x-ray with no acute findings Blood cultures were obtained, the patient was started on Zosyn and vancomycin, and she was admitted to the hospital. By the following day, 4 of 4 blood cultures were positive, and grew MSSA. By 10/30/17, the patient's antibiotics were changed to oxacillin every 4 hours, and the vancomycin was stopped. On , the patient was taken to surgery and the pacemaker and wires were removed. Since then, the chest wound has appeared to be healing nicely, the fever has resolved, the leukocytosis has resolved. The patient did experience rapid atrial fib on 11/03/17, and was hypotensive at that time, but that has improved also. The patient was quite encephalopathic when she came to the hospital, and her confusion is now described as "worse than usual" per the patient's daughter. The patient has been weak at home, being able to only ambulate with 1 person assist or with a cane, but now her weakness is significantly worse. She has been able to sit up in a chair here at the hospital the last couple days. According to the notes in her chart here, plans are being made for an eventual transfer to a long term facility to continue the 6 weeks course of antibiotics and for some therapy. Palliative Care was consulted to assist with symptom management, and to enter into discussions with the patient's family regarding her illnesses, the prognosis, and the benefits and burdens of the various treatment choices. . Function/Cognitive Trajectory The patient has been declining the past couple years. Her daughter Hoa is her primary caregiver at home, and has lived with the patient for several years. The patient has been weaker over the past year, but is able to get out of her bed on her own and get to a bedside commode. With one person holding on , she can ambulate several steps, but she feels too unsteady if she tries to do that by herself. She has been progressively more confused in recent months, and the daughter reports that the patient's short-term memory is quite poor, but long-term memory remains primarily intact. . Review of Systems Constitutional: COMPLAINS OF: Fatigue, Fever, Weight loss (Daughter thinks the patient has lost a few pounds in a few months) Endocrine: DENIES: Polyuria Eyes: DENIES: Eye inflammation Ears, nose, mouth, throat: DENIES: Epistaxis Respiratory: DENIES: Cough, Shortness of breath Cardiovascular: DENIES: Chest pain Gastrointestinal: DENIES: Bloody stools, Diarrhea, Vomiting, Vomiting blood Genitourinary: DENIES: Hematuria Musculoskeletal: COMPLAINS OF: Joint pain (History of RA), Back pain (Chronic) , Decreased range of motion (Due to arthritis) Integumentary: DENIES: Rash Hematologic/Lymphatics: DENIES: Lymphadenopathy Immunologic/Allergic: DENIES: Urticaria Neurologic: DENIES: Localized weakness, Seizures Psychiatric: COMPLAINS OF: Confusion, DENIES: Hallucinations Past Family Social History Coded Allergies: NSAIDS (Non-Steroidal Anti-Inflamma (Verified Allergy, Severe, Shortness of Breath, 10/27/17) cephalexin (Unverified Allergy, Severe, HIVES, 10/27/17) diclofenac (Unverified Allergy, Severe, Itching, 10/27/17) etodolac (Unverified Allergy, Severe, Itching, 10/27/17) flurbiprofen (Unverified Allergy, Severe, Itching, 10/27/17) ibuprofen (Unverified Allergy, Severe, Itching, 10/27/17) indomethacin (Unverified Allergy, Severe, Itching, 10/27/17) ketoprofen (Unverified Allergy, Severe, Itching, 10/27/17) ketorolac (Unverified Allergy, Severe, Itching, 10/27/17) naproxen (Unverified Allergy, Severe, Itching, 10/27/17) oxaprozin (Unverified Allergy, Severe, Itching, 10/27/17) Uncoded Allergies: ANTIINFLAMATORY (Allergy, Severe, ITCHING, 09/16/14) Past Medical History * COPD * CHF * History of pneumonia * History of atrial fibrillation * Chronic low back pain * Chronic anemia * Hypertension * Hyperlipidemia * Hypothyroid * Rheumatoid arthritis and Sjogren's syndrome * On long-term prednisone therapy * GERD * Depression * Anxiety . Past Surgical History * After * Cholecystectomy * WAYLON and BSO * Right hip fracture 2005 * Bilateral total knee replacements * Multiple surgeries on hands and feet because of the RA * Left wrist * Pacemaker for several years, with generator replacement 09/01/17 * Cataract * Pacemaker and wire removal 11/02/17 . Reported Medications Reported Meds & Active Scripts Active Reported Prilosec (Omeprazole Magnesium) 20 Mg Tab 20 Mg PO DAILY Aspir-81 (Aspirin) 81 Mg Tabdr 81 Mg PO DAILY K-Tab (Potassium Chloride) 10 Meq Tab 10 Meq PO DAILY Furosemide 20 Mg Tab 20 Mg PO DAILY Tylenol-Codeine #3 (Acetaminophen-Codeine) 300-30 mg Tab 1 Tab PO Q4H PRN Cartia Xt (Diltiazem ER 24 HR) 120 Mg Caper 120 Mg PO DAILY Prednisone 5 Mg Tab 5 Mg PO DAILY Levothyroxine (Levothyroxine Sodium) 100 Mcg Tab 100 Mcg PO DAILY Digoxin 0.125 Mg Tab 0.125 Mg PO DAILY Alprazolam 0.5 Mg Tab 0.25 Mg PO TID PRN . Current Medications Medications (Trade) Dose Ordered Sig/Keshawn Route Start Time Stop Time Status Last Admin (Duoneb Neb) 1 ampule Q2HR NEB PRN NEB 10/27/17 15:00 11/02/17 14:13 (Tylenol) 650 mg Q4H PRN PO 10/27/17 15:00 10/30/17 19:50 (Zofran Inj) 4 mg Q6H PRN IV 10/27/17 15:00 (Ecotrin Ec) 81 mg DAILY PO 10/28/17 09:00 11/08/17 09:51 (Lanoxin) 0.125 mg DAILY PO 10/28/17 09:00 11/08/17 09:52 (Synthroid) 100 mcg DAILY@0600 PO 10/28/17 06:00 11/08/17 05:15 (Tears Naturale Opth Soln) 1 drop Q4H PRN EACH EYE 10/28/17 08:30 10/28/17 18:45 (D50w (Vial) Inj) 50 ml UNSCH PRN IV PUSH 10/29/17 17:15 Oxacillin Sodium 2 gm/Sodium Chloride 100 ml @ 200 mls/hr Q4H IV 10/30/17 11:00 11/08/17 11:36 (Deltasone) 5 mg DAILY PO 11/01/17 09:00 11/08/17 09:52 (Ultram) 50 mg Q8H PRN PO 10/31/17 14:45 11/06/17 12:54 Miscellaneous Information Patient in critical care unit? Ass... Q361D .XX 11/01/17 19:15 11/01/17 19:15 (Milk Of Deena Liq) 30 ml Q6H PRN PO 11/02/17 12:30 (NS Flush) 2 ml BID IV FLUSH 11/02/17 21:00 11/08/17 09:51 (NS Flush) 2 ml UNSCH PRN IV FLUSH 11/02/17 12:30 (Lopressor Inj) 5 mg Q6H PRN IV PUSH 11/02/17 15:45 11/05/17 08:39 (Heparin Inj) 5,000 units Q8HR SQ 11/03/17 06:00 11/08/17 05:15 (NS Flush) See Protocol DAILY IV FLUSH 11/07/17 09:00 11/08/17 09:51 (NS Flush) See Protocol UNSCH PRN IV FLUSH 11/06/17 12:00 (Heparin Central Flush) See Protocol DAILY IV FLUSH 11/07/17 09:00 11/08/17 09:52 (Heparin Central Flush) See Protocol UNSCH PRN IV FLUSH 11/06/17 12:00 (NS Flush) UNSCH PRN IV FLUSH 11/06/17 12:00 (Xanax) 0.25 mg Q6H PRN PO 11/06/17 14:00 11/07/17 20:09 (Cardizem) 30 mg Q8H PO 11/08/17 09:00 (Protonix) 40 mg DAILY PO 11/09/17 09:00 Family History The patient's mother at age 80 with congestive heart failure, in the patient's father by age 20 from complications of rheumatic fever with cardiac complications. . Substance Use Tobacco: None Alcohol: None Prescription med abuse: None Illicits: None . Psychosocial History The patient was born and raised in [place], but moved to [place] about 40 years ago. 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 once, . 2 daughters, both live in this area. One daughter lives with the patient. . Spiritual/Cultural Factors Spirituality has been important for the patient, and she has been open to gravity manager visits at the hospital in the past. She has a Jehovah'S Witness background. . Living Will: Never completed Health Care Surrogate: Never completed Durable Power of Story Editor: Never completed Family/friends goals: Both of the patient's daughter's request DNR status. They are hopeful that their mother can go to the SNF to complete her antibiotics and get therapy, and that she will be able to return home again. They do both understand, however, that given her advanced age, declining strength over the past several months, the acute insult to her strength the past couple weeks, and her chronic steroid use that may continue to suppress her immune system, she is at risk for further infections or other significant complications in the upcoming days and weeks. If the patient continues to decline rather than improve, or if additional significant complications occur, the daughters would consider hospice services. . Ethical and Legal Issues There are no ethical issues that would impact her care were decision-making at this time. The patient lacks capacity for decision-making, and it appears that she will not regain that capacity. With no spouse and no healthcare surrogate designated , the decision making falls to the patient's 2 daughters, Sachi and Hoa. . Physical Exam Vital Signs Date Time Temp Pulse Resp B/P (MAP) Pulse Ox O2 Delivery O2 Flow Rate FiO2 11/08/17 13:00 64 11/08/17 12:00 62 11/08/17 11:44 97.1 69 20 157/76 (103) 97 11/08/17 11:30 21 11/08/17 11:00 70 11/08/17 10:00 62 11/08/17 09:00 60 11/08/17 08:36 97.6 59 18 169/74 (105) 100 11/08/17 08:36 100 Nasal Cannula 2.00 11/08/17 08:00 62 11/08/17 07:00 57 11/08/17 06:00 55 11/08/17 05:00 54 11/08/17 04:00 98.4 56 18 165/76 (105) 98 11/08/17 04:00 Nasal Cannula 2.00 11/08/17 04:00 56 11/08/17 03:00 54 11/08/17 02:00 50 11/08/17 01:00 51 11/08/17 00:00 98.2 48 18 126/55 (78) 97 11/08/17 00:00 48 11/07/17 23:00 52 11/07/17 22:00 49 11/07/17 21:00 52 11/07/17 20:00 50 11/07/17 20:00 Nasal Cannula 2.00 11/07/17 20:00 98.0 50 18 143/54 (83) 98 11/07/17 18:00 66 11/07/17 17:16 96 Nasal Cannula 2.00 11/07/17 17:00 54 11/07/17 16:01 54 11/07/17 15:30 98.1 61 18 151/56 (87) 96 11/07/17 15:00 52 Exam CONSTITUTIONAL/GENERAL: This is an elderly, frail-appearing patient, in no apparent distress. TUBES/LINES/DRAINS: IV access SKIN: No jaundice, rashes, or lesions. Ecchymoses on upper extremities. No wounds seen anteriorly. Skin temperature appropriate. Not diaphoretic. HEAD: Atraumatic. Normocephalic. EYES: Pupils equal and round and reactive. Extraocular motions intact. No scleral icterus. No injection or drainage. Fundi not examined. ENT: Hearing grossly normal. Nose without bleeding or purulent drainage. Throat without visible erythema, exudates, masses, or lesions. NECK: Trachea midline. Supple, nontender. No palpable thyroid enlargement or nodularity. CARDIOVASCULAR: Regular rate and rhythm without murmurs, gallops, or rubs. No JVD. Peripheral pulses diminished. RESPIRATORY/CHEST: Symmetric, unlabored respirations. There are some scattered bilateral minor rhonchi. GASTROINTESTINAL: Abdomen soft, non-tender, nondistended. No hepato-splenomegaly , or palpable masses. No guarding. Bowel sounds present. GENITOURINARY: Without palpable bladder distension. MUSCULOSKELETAL: Extremities without clubbing, cyanosis, or edema. No joint tenderness or effusion noted. No calf tenderness. No mottling or clubbing. LYMPHATICS: No palpable cervical or supraclavicular adenopathy. NEUROLOGICAL: Awake and alert. Sensory grossly within normal limits, and global weakness but moves all 4 extremities. Follows commands. The patient is not oriented to day, date, month, year, or who the president is. She does not recall why she is in the hospital, and is unaware of any recent infection. PSYCHIATRIC: No obvious anxiety/depression. no apparent hallucinations or other psychotic thought process. . Diagnostic Tests Laboratory Laboratory Tests Test 11/06/17 07:40 11/07/17 03:38 White Blood Count 6.8 TH/MM3 (4.0-11.0) 5.9 TH/MM3 (4.0-11.0) Red Blood Count 4.07 MIL/MM3 (4.00-5.30) 3.49 MIL/MM3 (4.00-5.30) Hemoglobin 10.5 GM/DL (11.6-15.3) 9.0 GM/DL (11.6-15.3) Hematocrit 31.9 % (35.0-46.0) 27.6 % (35.0-46.0) Mean Corpuscular Volume 78.4 FL (80.0-100.0) 79.3 FL (80.0-100.0) Mean Corpuscular Hemoglobin 25.8 PG (27.0-34.0) 25.9 PG (27.0-34.0) Mean Corpuscular Hemoglobin Concent 33.0 % (32.0-36.0) 32.7 % (32.0-36.0) Red Cell Distribution Width 15.5 % (11.6-17.2) 15.7 % (11.6-17.2) Platelet Count 335 TH/MM3 (150-450) 261 TH/MM3 (150-450) Mean Platelet Volume 6.6 FL (7.0-11.0) 7.0 FL (7.0-11.0) Neutrophils (%) (Auto) 83.0 % (16.0-70.0) 78.1 % (16.0-70.0) Lymphocytes (%) (Auto) 9.4 % (9.0-44.0) 12.6 % (9.0-44.0) Monocytes (%) (Auto) 5.4 % (0.0-8.0) 7.1 % (0.0-8.0) Eosinophils (%) (Auto) 1.5 % (0.0-4.0) 1.5 % (0.0-4.0) Basophils (%) (Auto) 0.7 % (0.0-2.0) 0.7 % (0.0-2.0) Neutrophils # (Auto) 5.7 TH/MM3 (1.8-7.7) 4.6 TH/MM3 (1.8-7.7) Lymphocytes # (Auto) 0.6 TH/MM3 (1.0-4.8) 0.7 TH/MM3 (1.0-4.8) Monocytes # (Auto) 0.4 TH/MM3 (0-0.9) 0.4 TH/MM3 (0-0.9) Eosinophils # (Auto) 0.1 TH/MM3 (0-0.4) 0.1 TH/MM3 (0-0.4) Basophils # (Auto) 0.0 TH/MM3 (0-0.2) 0.0 TH/MM3 (0-0.2) CBC Comment DIFF FINAL DIFF FINAL Differential Comment Blood Urea Nitrogen 12 MG/DL (7-18) 11 MG/DL (7-18) Creatinine 0.75 MG/DL (0.50-1.00) 0.62 MG/DL (0.50-1.00) Random Glucose 84 MG/DL (74-106) 74 MG/DL (74-106) Total Protein 5.6 GM/DL (6.4-8.2) 5.7 GM/DL (6.4-8.2) Albumin 1.9 GM/DL (3.4-5.0) 2.0 GM/DL (3.4-5.0) Calcium Level 7.9 MG/DL (8.5-10.1) 8.2 MG/DL (8.5-10.1) Phosphorus Level 3.0 MG/DL (2.5-4.9) 3.8 MG/DL (2.5-4.9) Magnesium Level 1.9 MG/DL (1.5-2.5) 2.0 MG/DL (1.5-2.5) Alkaline Phosphatase 67 U/L (45-117) 62 U/L (45-117) Aspartate Amino Transf (AST/SGOT) 12 U/L (15-37) 14 U/L (15-37) Alanine Aminotransferase (ALT/SGPT) 10 U/L (10-53) 11 U/L (10-53) Total Bilirubin 0.2 MG/DL (0.2-1.0) 0.2 MG/DL (0.2-1.0) Sodium Level 144 MEQ/L (136-145) 141 MEQ/L (136-145) Potassium Level 3.8 MEQ/L (3.5-5.1) 3.8 MEQ/L (3.5-5.1) Chloride Level 103 MEQ/L (98-107) 100 MEQ/L (98-107) Carbon Dioxide Level 35.5 MEQ/L (21.0-32.0) 33.9 MEQ/L (21.0-32.0) Anion Gap 6 MEQ/L (5-15) 7 MEQ/L (5-15) Estimat Glomerular Filtration Rate 73 ML/MIN (>89) 91 ML/MIN (>89) Result Diagram: 11/07/17 0338 11/07/17 0338 Microbiology Microbiology Date/Time Source Procedure Growth Status 11/03/17 07:04 Blood Peripheral Aerobic Blood Culture - Final NO GROWTH IN 5 DAYS Complete 11/03/17 07:04 Blood Peripheral Anaerobic Blood Culture - Final NO GROWTH IN 5 DAYS Complete 11/02/17 12:45 Fluid Other Fungal Smear - Final NO FUNGAL ELEMENTS SEEN. Resulted 11/02/17 12:45 Fluid Other Fungal Culture Pending Resulted 10/27/17 10:45 Urine Catheterized Urine Urine Culture - Final NO GROWTH IN 48 HOURS. Complete 11/02/17 12:45 Wound Other Fungal Smear - Final NO FUNGAL ELEMENTS SEEN. Resulted 11/02/17 12:45 Wound Other Fungal Culture Pending Resulted Imaging Last Impressions Chest X-Ray 11/02/17 0000 Signed Impressions: Service Date/Time: Thursday, November 02, 2017 13:19 - CONCLUSION: Mild pulmonary edema. Left lower lobe atelectasis. Small left pleural effusion. No evidence of pneumothorax. Dawson Turner MD Soft Tissue Ultrasound 10/27/17 0000 Signed Impressions: Service Date/Time: Friday, October 27, 2017 17:45 - CONCLUSION: Small volume of complex fluid in the operative sites in the left chest Zurdo Starr MD Procedures 11/02/17: Pacemaker and wire removal . Patient/Family Conference Present at Family Conference: Patient's daughter Sachi was at the bedside, and then I spoke separately with daughter Hoa via telephone. . Family Conference Time (mins): 58 Family Conference Location: Bedside, Telephone Issues Discussed: * Palliative care role, purpose, approach * Hospice care role, purpose, approach * Additional medical, psychosocial, and spiritual history * Patients general health, functional status, and cognitive changes in the months leading up to the current hospitalization * Patient/family understanding of the current medical problems * Patient/family understanding of prognosis * Patients goals of care as best understood from advance directives and/or conversations and/or values * Current medical treatment options and benefits/burdens of those options * Likely scenarios comparing ongoing aggressive care with a transition to comfort measures only * Questions answered to the best of my ability * Palliative care contact information provided . Assessment and Plan Disease Oriented Problem List: (1) Sepsis, MSSA (2) Pacemaker site infection (3) Encephalopathy, chronic confusion but exacerbated by recent infection and hospitalization (4) Prednisone use, chronic, long-term (5) COPD (6) History of pneumonia (7) Congestive heart failure (8) Paroxysmal atrial fib (9) Chronic anemia (10) Chronic low back pain (11) Hypertension (12) Hyperlipidemia (13) Hypothyroidism (14) Rheumatoid arthritis and Sjogren's syndrome (15) GERD (16) Depression (17) Anxiety Symptom Scale: (1) Progressive weakness 0-10 Scale: Unable to quantify (2) Depression 0-10 Scale: Unable to quantify (Does not seem to be an issue recently) (3) Encephalopathy 0-10 Scale: Unable to quantify (Has underlying confusion and memory loss, worsened with this infection and hospitalization) (4) Anxiety 0-10 Scale: Unable to quantify (Does not seem to be anxious at the time of the visit) Pertinent Non-Medical Issues Psychosocial: , retired nurse, 2 daughters, 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 Spiritual: Jehovah'S Witness background, spirituality has been important for her. Legal: The patient lacks capacity for decision-making, and it appears that she will not regain that capacity. With no spouse and no healthcare surrogate designated, the decision making falls to the patient's 2 daughters, Sachi and Hoa. Ethical issues impacting care: None . Important Contacts Daughter: Hoa Al (lives with patient) [phone] Daughter: Sachi Roldan: [phone] . Prognosis Overall, this patient's prognosis is quite guarded. She has advanced age, chronic debilitating conditions, and has been declining in weight and strength over the past year. She has now suffered a significant infection, sepsis, and more progressive weakness, and she remains at significant risk for additional infection complications or other complications. If the patient were to have additional complications or to have her's strength and debility continue to progress, she would be appropriate for hospice services. . Code Status: No Code Plan * DO NOT RESUSCITATE, per request of both daughters 11/08/17 * GOALS: Both of the patient's daughter's request DNR status. They are hopeful that their mother can go to the SNF to complete her antibiotics and get therapy, and that she will be able to return home again. They do both understand, however, that given her advanced age, declining strength over the past several months, the acute insult to her strength the past couple weeks, and her chronic steroid use that may continue to suppress her immune system, she is at risk for further infections or other significant complications in the upcoming days and weeks. If the patient continues to decline rather than improve, or if additional significant complications occur, the daughters would consider hospice services. * DECISION-MAKING: The patient lacks capacity for decision-making, and it appears that she will not regain that capacity. With no spouse and no healthcare surrogate designated, the decision making falls to the patient's 2 daughters, Sachi and Hoa. * SYMPTOMS: The patient does not have much pain at this time. Her encephalopathy is fairly marked at this time, but may perhaps improve with time and further treatment. Her anxiety and depression seem to be well managed at the time of this consultation. I have no additional medication recommendations at this time. * Palliative Care will continue to follow the patient during this hospitalization. . Time Spent Total Floor Time (mins): 98 Face to Face Time (mins): 43 >50% Counseling/Coord of Care: Yes Thank you for the opportunity to participate in the care of Ms. Kay. Attestation To help prompt me to consider important information that might be impacting today's encounter and assessment, information from prior notes written by myself or my colleagues may have been "brought forward" into today's note. My signature on this note, however, is an attestation that I personally performed the exam, history, and/or decision-making noted today, and, unless otherwise indicated, the interactions with patient, family, and staff as well as the review of records all occurred today. I also attest that the listed assessment and stated plan reflect my best clinical judgment today based on the combination of historical information, prior notes, and today's exam/ interactions. When time spent is documented, it refers only to time spent today by the signer, or if indicated, combined time spent today by collaborating physician/nurse practitioner. Viktoriya Park MD Nov 08, 2017 14:38
[2017-11-09] VITALS (18 sets, daily range): BP systolic 138–157; BP diastolic 41–80; PULSE 50–64; RESP 14–18; TEMP 98.1–98.2; O2SAT 99–100
[2017-11-09] MEDS: DILTIAZEM HCL 30 MG TAB PO SCH (00:17)
[2017-11-09] MEDS: OXACILLIN INJ 2 GM in SODIUM CHLORIDE 0.9% INJ 100 ML IV SCH ×3 (04:01→10:30)
[2017-11-09] MEDS: HEPARIN SODIUM - SQ 10,000 UNITS/ML VIAL SQ SCH (06:00)
[2017-11-09] MEDS: LEVOTHYROXINE SODIUM 100 MCG TAB PO SCH (06:00)
[2017-11-09] MEDS ORDERED: DILT31TA PO (08:17)
[2017-11-09] MEDS ORDERED: TYLETAB34 PO (08:17)
[2017-11-09] MEDS ORDERED: ALPR0.5T3 PO (08:17)
--- NOTE | 2017-11-09 08:18 | HHI.DCPOC ---
Discharge Care Plan Diagnosis: (1) Sepsis, MSSA (2) Pacemaker site infection (3) Atrial fibrillation (4) Rheumatoid arthritis (5) Sjogren's disease Goals to Promote Your Health * To prevent worsening of your condition and complications * To maintain your health at the optimal level Directions to Meet Your Goals Take your medications as prescribed Follow your dietary instruction Follow activity as directed Keep your appointments as scheduled Take your immunizations and boosters as scheduled If your symptoms worsen call your PCP, if no PCP go to Urgent Care Center or Emergency Room Smoking is Dangerous to Your Health. Avoid second hand smoke Call the 24-hour hour crisis hotline for domestic abuse at Deepak Infante MD November 09, 2017 08:18
--- NOTE | 2017-11-09 08:23 | HHI.DS ---
Discharge Summary Admission Date Oct 27, 2017 at 11:47 Discharge Date: November 09, 2017 Admitting Diagnosis Sepsis, pacemaker infection (1) Sepsis ICD Codes: A41.9 - Sepsis, unspecified organism Status: Acute (2) Pacemaker infection ICD Codes: T82.7XXA - Infection and inflammatory reaction due to other cardiac and vascular devices, implants and grafts, initial encounter Status: Acute (3) Atrial fibrillation ICD Codes: I48.91 - Atrial fibrillation Status: Chronic (4) COPD (chronic obstructive pulmonary disease) ICD Codes: J44.9 - Chronic obstructive pulmonary disease, unspecified Status: Chronic (5) Hypothyroidism ICD Codes: E03.9 - Hypothyroidism Status: Chronic (6) Anxiety ICD Codes: F41.9 - Anxiety Status: Chronic (7) Rheumatoid arthritis ICD Codes: M06.9 - Rheumatoid arthritis Status: Chronic (8) Sjogren's disease ICD Codes: M35.00 - Sjogren's disease Status: Chronic Brief History Ms. Kay is an 87 y/o WF with RA, hx of atrial fibrillation and SSS s/p PPM, hypothyroidism, COPD, and Sjogren's syndrome. Pt recently had PPM replacement in 08/[address] Wiggins. Pts daughter is at the bedside and reports that at baseline the pt does not move around much out of bed other than when her family is able to get her into a wheelchair by standing and pivoting and that the pt does have some baseline confusion but typically is oriented to person and place. Her daughter reports that she noticed some pus drainage from her PPM incision yesterday. This morning the pt was more confused and had a fever of 101 by temporal thermometer and shaking chills. Family was unable to lift the patient to the wheelchair and so an ambulance was called. In the ED her temp was 104.2. Her BP has been quite low in the ED, most recently with systolic BP in the 80's, and she has received 2L of IVF with NS. A culture of the pus coming from the PPM incision site was taken in the ED prior to abx being given. Pts UA was abnormal and culture is pending. Blood cultures were drawn in the ED. Pt was given Tylenol, IVF, Vancomycin and Zosyn in the ED. Pt denies any abdominal pain, chest pain, nausea or vomiting, but unable to provide much information. Discussed with the pts daughter at bedside and the pt is a full code. CBC/BMP: 11/07/17 0338 11/07/17 0338 Significant Findings Laboratory Tests Test 11/07/17 03:38 Red Blood Count 3.49 MIL/MM3 (4.00-5.30) Hemoglobin 9.0 GM/DL (11.6-15.3) Hematocrit 27.6 % (35.0-46.0) Mean Corpuscular Volume 79.3 FL (80.0-100.0) Mean Corpuscular Hemoglobin 25.9 PG (27.0-34.0) Neutrophils (%) (Auto) 78.1 % (16.0-70.0) Lymphocytes # (Auto) 0.7 TH/MM3 (1.0-4.8) Total Protein 5.7 GM/DL (6.4-8.2) Albumin 2.0 GM/DL (3.4-5.0) Calcium Level 8.2 MG/DL (8.5-10.1) Aspartate Amino Transf (AST/SGOT) 14 U/L (15-37) Carbon Dioxide Level 33.9 MEQ/L (21.0-32.0) Hospital Course Sepsis Pacemaker site infection MSSA pm infection/sepsis - 87 y/o WF with RA, hx of atrial fibrillation and SSS s/p PPM, hypothyroidism, COPD, and Sjogren's syndrome. Pt recently had PPM replacement in 08/[address] Wiggins. - comgmt with CTS, ID - Her daughter reports that she noticed some pus drainage from her PPM incision x 1 day. Pt was more confused and had a fever of 101 by temporal thermometer and shaking chills. - Family was unable to lift the patient to the wheelchair and so an ambulance was called. - In the ED her temp was 104.2. Her BP has been quite low in the ED with sbp's 70s - A culture of the pus coming from the PPM incision site was taken in the ED prior to abx being given. - - Pt was given 2.5 L NS bolus in ED. stop ivf. tolerating diet. - Stress dose steroids were started for persist hypotension. bp stable. continue wean back to baseline dose - stopped zosyn 10/29 - Vancomycin stopped 10/30 - oxacillin started (10/30 - present) - Per ID, Dr. Schuler, pt will need long course of IV ABX, 6 week course - ABX end date anticipated 12/13/17 - infected PPM and leads removed by CTS (11/02/17) - repeat blood cx (11/02) --> NGTD - Blood pressure stabilized and medial care transferred back to the Hospitalist Service from [facility] 11/03/17 - PT - Case d/w ID, Dr. Schuler (11/04). placed PICC 11/05/17 since blood cultures show NO growth - Repeat Blood Cx (11/02) --> NGTD - Repeat Blood Cx (11/03) --> NGTD Discussed with ID..with plan to d/c on oxacillin q4hrs. consult CM. arrange snf placement. monitor her heart rate and rhythm at snf. pt on dig. She has tachy/sang syndrome and will provide prn diltiazem at snf for periods of tachy. unable to place permanent pm now due to her infection. Atrial fibrillation Hx of SSS s/p PPM - see above COPD - Duonebs PRN Hypothyroidism - Cont. home meds Sjogrens syndrome RA - Pt chronically on Prednisone 5mg po daily, - Given stress steroids (2) Pacemaker infection ICD Codes: T82.7XXA - Infection and inflammatory reaction due to other cardiac and vascular devices, implants and grafts, initial encounter Status: Acute Plan: - see above (3) Atrial fibrillation ICD Codes: I48.91 - Atrial fibrillation Status: Chronic Plan: - see above (4) COPD (chronic obstructive pulmonary disease) ICD Codes: J44.9 - Chronic obstructive pulmonary disease, unspecified Status: Chronic Plan: - duonebs prn (5) Hypothyroidism ICD Codes: E03.9 - Hypothyroidism Status: Chronic Plan: - levothyroxine (6) Anxiety ICD Codes: F41.9 - Anxiety Status: Chronic (7) Rheumatoid arthritis ICD Codes: M06.9 - Rheumatoid arthritis Status: Chronic Plan: - chronic PO prednisone 5mg daily (8) Sjogren's disease ICD Codes: M35.00 - Sjogren's disease Status: Chronic Pt Condition on Discharge: Stable Discharge Disposition: Discharge to SNF Discharge Instructions DIET: Follow Instructions for: Heart Healthy Diet Activities you can perform: Regular-No Restrictions Follow up Referrals: Cardiology Cardiology, Interventional PCP Follow-up Surgical New Medications: Diltiazem (Cardizem) 30 Mg Tab 30 MG PO Q8H PRN for sustained heart rate above 110, #30 TAB Continued Medications: Acetaminophen-Codeine (Tylenol-Codeine #3) 300-30 mg Tab 1 TAB PO Q4H PRN for PAIN, #20 TAB 0 Refills (This prescription has been renewed ) Alprazolam (Alprazolam) 0.5 Mg Tab 0.25 MG PO TID PRN for ANXIETY, #20 TAB 0 Refills (This prescription has been renewed) Aspirin DR (Aspir-81) 81 Mg Tabdr 81 MG PO DAILY Digoxin (Digoxin) 0.125 Mg Tab 0.125 MG PO DAILY for Regulate Heart Beat, #30 TAB 0 Refills Levothyroxine (Levothyroxine) 100 Mcg Tab 100 MCG PO DAILY for Thyroid, #30 TAB 0 Refills Omeprazole Magnesium (Prilosec) 20 Mg Tab 20 MG PO DAILY Prednisone (Prednisone) 5 Mg Tab 5 MG PO DAILY, TAB 0 Refills Discontinued Medications: Diltiazem ER 24 HR (Cartia Xt) 120 Mg Caper 120 MG PO DAILY, #30 CAP 0 Refills Furosemide (Furosemide) 20 Mg Tab 20 MG PO DAILY, #30 TAB 0 Refills Potassium Chloride ER (K-Tab) 10 Meq Tab 10 MEQ PO DAILY for Electrolyte Replacement, #30 TAB 0 Refills Deepak Infante MD November 09, 2017 08:23
[2017-11-09] MEDS ORDERED: PANTOPRAZOLE SOD 40 MG DELAYED RELEASE TAB PO SCH (09:00)
[2017-11-09] MEDS ORDERED: DILTIAZEM HCL 30 MG TAB PO PRN (09:00)
[2017-11-09] MEDS: ASPIRIN EC 81 MG TABEC PO SCH (10:19)
[2017-11-09] MEDS: DIGOXIN 0.125 MG TAB PO SCH (10:19)
[2017-11-09] MEDS: predniSONE 5 MG TAB PO SCH (10:19)
[2017-11-09] MEDS: SODIUM CHLORIDE 0.9% FLUSH 10 ML FLUSH IV FLUSH SCH ×2 (10:20→10:28)
--- NOTE | 2017-11-09 10:21 | HHI.HCPN ---
Visit to Ms. Kay, discharge order is place. No family at bedside. Spoke with nurse, provided community dnr for patient's daughter to sign prior to patient leaving for SNF. Also informed CM. Requested copy for palliative care and copy to be placed in paper chart to be scanned into EMR. Telephone call to daughter Sachi to inform her of discharge order pending facility acceptance and arrangement of transportation. Time undetermined, no updated notes at time of visit. Informed her of [facility] [place] DNR on chart for her and her sister to sign. Palliative care contact provided. Palliative care will continue to follow throughout hospitalization. Shalonda Overton MSW, FARM EQUIPMENT TECHNICIAN November 09, 2017 10:21
== END 2017-11-09 15:04 | DRG 260 ==
LOC: NEPE 10:16 → NEDA 11:47 → HIMW 17:25 → HCIS 11-05 22:30
PROVIDERS: ADMIT Hospitalist; ATTEND Hospitalist
PROC: B246ZZZ Ultrasonography of Right and Left Heart (ICD-10-PCS; 2017-11-02)
PROC: 0JPT0PZ Removal of Cardiac Rhythm Related Device from Trunk Subcutaneous Tissue and Fascia, Open Approach (ICD-10-PCS; principal; 2017-11-02 10:14)
PROC: 02PA0MZ Removal of Cardiac Lead from Heart, Open Approach (ICD-10-PCS; 2017-11-02 10:14)
DX: T82.7XXA Infection and inflammatory reaction due to other cardiac and vascular devices, implants and grafts, initial encounter (principal); A41.01 Sepsis due to Methicillin susceptible Staphylococcus aureus; G93.40 Encephalopathy, unspecified; I49.5 Sick sinus syndrome; M06.9 Rheumatoid arthritis, unspecified; Y83.1 Surgical operation with implant of artificial internal device as the cause of abnormal reaction of the patient, or of later complication, without mention of misadventure at the time of the procedure; I48.0 Paroxysmal atrial fibrillation; E03.9 Hypothyroidism, unspecified; J44.9 Chronic obstructive pulmonary disease, unspecified; M35.00 Sjogren syndrome, unspecified; F41.9 Anxiety disorder, unspecified; K21.9 Gastro-esophageal reflux disease without esophagitis; I50.9 Heart failure, unspecified; I11.0 Hypertensive heart disease with heart failure; M51.36 Other intervertebral disc degeneration, lumbar region; F32.9 Major depressive disorder, single episode, unspecified; Z95.0 Presence of cardiac pacemaker; Z96.641 Presence of right artificial hip joint; Z96.653 Presence of artificial knee joint, bilateral; Z88.1 Allergy status to other antibiotic agents; Z87.01 Personal history of pneumonia (recurrent); Z82.49 Family history of ischemic heart disease and other diseases of the circulatory system; Z79.52 Long term (current) use of systemic steroids; G89.29 Other chronic pain; Z87.891 Personal history of nicotine dependence; Z90.710 Acquired absence of both cervix and uterus; Z90.49 Acquired absence of other specified parts of digestive tract; I95.81 Postprocedural hypotension; E78.5 Hyperlipidemia, unspecified; F03.90 Unspecified dementia, unspecified severity, without behavioral disturbance, psychotic disturbance, mood disturbance, and anxiety; Z66 Do not resuscitate; D64.9 Anemia, unspecified; E16.2 Hypoglycemia, unspecified
CPT/HCPCS: 36569; 71045; 76937; 76999; 80048; 80053; 80162; 80202; 81001; 82948; 83605; 83735; 84100; 84439; 84443; 85025; 85610; 85730; 86403; 86850; 86900; 86901; 86920; 87015; 87040; 87070; 87086; 87102; 87116; 87147; 87186; 87205; 87206; 87641; 88300; 93005; 93306; 93318; 94664; 96365; 96368; C9113; J0131; J1642; J1644; J1720; J1815; J2370; J2405; J2543; J2700; J2710; J3010; J3370; J7030; J7040; J7050; J7512; P9045